=== PATIENT | female | born 1980 | race Caucasian/White ===

== ENCOUNTER 2020-05-09 12:23 | Emergency (ER) | payer OTHER, SELFPAY ==
[2020-05-09 12:57] VITALS: BP 124/89; PULSE 78; RESP 18; TEMP 37; O2SAT 98; BMI 36.3
--- NOTE | 2020-05-09 13:42 | XR_ITS ---
EXAMINATION: XR LUMBOSACRAL SPINE CLINICAL INFORMATION: Trauma, pain COMPARISON: None TECHNIQUE: Three views of the lumbosacral spine. 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 There is no vertebral compression or visible fracture, spondylolisthesis, destructive process. No focal disc narrowing. The SI joints and visualized sacrum are unremarkable. Again, there are surgical clips seen in the upper and lower abdomen. Bowel gas unremarkable. XR/XR lumbar spine 2-3V IMPRESSION: No acute bony abnormality.
[2020-05-09] MEDS: Ketorolac Tromethamine 60 MG/2 ML VIAL IM (14:05)
--- NOTE | 2020-05-09 14:13 | ED_ITS ---
HPI - Back Pain/Injury General Chief Complaint: Back Pain/Injury Stated Complaint: BACK PAIN Time Seen by Provider: 05/09/20 13:42 Source: patient Mode of arrival: ambulatory Limitations: no limitations History of Present Illness HPI Narrative: Patient was lifting her daughter about 4 days ago and pain in her low back. Continued pain since then the pain radiates to both buttocks and hips. There is no numbness or tingling. No saddle anesthesia. No bowel or bladder incontinence. No fevers or chills. The patient is ambulatory. Worsened with lying down. Improved with ambulation MD elicited complaint: back pain and back injury Onset (ago): day(s) Timing: intermittent Severity: moderate Similar Symptoms Previously: No Location: lumbar spine Radiation: buttocks Exacerbating factors: none Relieving factors: none Context: while lifting Associated symptoms: denies other symptoms Work related injury: No Related Data Previous Rx's Medication Instructions Recorded acetaminophen [Tylenol] 650 mg PO Q6H PRN #20 cap 05/09/20 cyclobenzaprine 10 mg PO TID PRN #20 tab 05/09/20 lidocaine [Lidoderm] 1 patch TOPICAL DAILY #15 ea 05/09/20 Allergies Allergy/AdvReac Type Severity Reaction Status Date / Time Sulfa (Sulfonamide Allergy Unknown hives Verified 03/15/19 00:00 Antibiotics) SEASONAL ALLERGIES Allergy Unknown RUNNY NOSE Uncoded 05/09/20 13:03 - ITCHY EYES Review of Systems Review of Systems: Yes all other systems are reviewed and are negative Constitutional: Constitutional: Reports no additional constitutional complaints, Denies body ache(s), Denies chills, Denies fever(s), Denies headache(s) and Denies weakness Eyes: Eyes: Reports no additional eye complaints and Denies change in vision ENT: Reports system reviewed and no additional complaints, except as documented, Denies dizziness, Denies headache(s), Denies nasal congestion, Denies nasal discharge and Denies neck pain Cardiovascular: Cardiovascular: Reports no additional cardiovascular complaints, Denies chest pain, Denies leg edema and Denies dyspnea Respiratory: Respiratory: Reports no additional respiratory complaints, Denies cough and Denies dyspnea Gastrointestinal: Gastrointestinal: Reports no additional gastrointestinal complaints, Denies abdominal pain, Denies diarrhea, Denies nausea and Denies vomiting Genitourinary: Genitourinary: Reports no additional female genitourinary complaints and Denies urinary incontinence Musculoskeletal: Musculoskeletal: Reports no additional musculoskeletal complaints, Reports back pain, Denies arthralgias, Denies joint swelling, Denies neck pain, Denies numbness and Denies tingling Integumentary/Breasts: Skin/Breast: Reports system reviewed and no additional complaints, except as docu and Denies rash Neurologic: Reports system reviewed and no additional complaints, except as documented, Denies Abnormal speech present, Denies dizziness, Denies headache(s), Denies numbness, Denies tingling and Denies weakness [facility] Past Medical History Attestation statement: The following information was validated with the patient. Medical History Acute eczema Anemia Asthma Surgical History Gastric bypass status for obesity H/O: hysterectomy History of abdominal surgery History of cholecystectomy S/P panniculectomy Social History Social History Alcohol intake: never Smoked in Last 30 Days: No Use of substances other than those prescribed or required for medical reasons: No Advance Directives: No Advance Directives Information Provided: No Physical Exam Vital Signs: Vital Signs: Vital Signs Temp Pulse Resp BP Pulse Ox 05/09/20 12:57 98.6 F 78 18 124/89 98 Body Mass Index 36.3 Const: General: cooperative, healthy appearing, comfortable and no acute distress Orientation/consciousness: patient oriented x3 Limitations: no limitations HENMT: Head: Yes normal to inspection Ears: hearing grossly normal bilaterally General nose exam: Normal external nose present Face and sinus: Yes normal facial exam Mouth: Normal oral and palatal mucosa present Throat: Yes posterior oropharynx normal Eyes: General: appearance normal, both eyes and all related structures Pupils: Equal, round and reactive pupils present Neck: Neck: Yes normal visual inspection Chest: Chest palpation & inspection: normal inspection of the chest Resp: Effort & Inspection: normal respiratory effort Auscultation: clear to auscultation bilaterally Cardio: Rate: regular rate Rhythm: regular rhythm Peripheral pulses: Peripheral pulses 2+ throughout GI: Inspection: Yes normal to inspection Palpation (GI): Soft to palpation and nontender Auscultation: normal bowel sounds : General: Yes no CVA tenderness Back/Spine/Pelvis: Back: no CVA tenderness Cervical Spine: normal cervical lordosis and cervical ROM normal Thoracic/Lumbar Spine: thoracic and lumbar spine normal to inspection, paraspinal muscle tenderness (over lumbar spine ) on the left and on the right, lumbar spinal tenderness at L1, at L2 and at L3 and straight leg raise positive (bilateral ) Pelvis: no pain with anterior- posterior compression and no pain with lateral compression Skin: General skin exam: no rashes or lesions noted Neuro: General: patient oriented x3, no focal motor deficits and normal sensat ion to monofilament Cranial nerves: Yes Equal, round and reactive pupils present Cognition (Neuro): normal cognition Speech: No Abnormal speech present Gait exam (Neuro): Normal gait present Motor exam (neuro): 5/5 mo tor strength present throughout Extrem: General: Yes normal to inspection Course Course Course Narrative: midline tenderness. will check imaging 1500- x-ray unremarkable. Likely lumbar strain. May be herniated disc. No neuro deficits. No red flag symptoms. Will send patient home with supportive care and have her follow-up with her primary care doctor in several days if no improvement in pain. Reviewed worrisome signs and symptoms when to return to the emergency department. Comfortable discharge home. MDM - Back Pain/Injury Medical Records Attestation: I reviewed the patient's medical records. Lab Data Attestation: I reviewed the patient's lab results. Imaging Data lumbar spine: Attestation: I personally reviewed and interpreted this imaging study as follows: Radiologist's impression: EXAMINATION: XR LUMBOSACRAL SPINE CLINICAL INFORMATION: Trauma, pain COMPARISON: None TECHNIQUE: Three views of the lumbosacral spine. 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 There is no vertebral compression or visible fracture, spondylolisthesis, destructive process. No focal disc narrowing. The SI joints and visualized sacrum are unremarkable. Again, there are surgical clips seen in the upper and lower abdomen. Bowel gas unremarkable. XR/XR lumbar spine 2-3V IMPRESSION: No acute bony abnormality. Discharge Plan Discharge Clinical Impression: Strain of lumbar region Patient Disposition: Home, Self-Care Instructions: Low Back Strain (ED) Additional Instructions: Ice or heat gentle stretching no heavy lifting or bending if no improvement in several days please follow-up with your pcp for a MRI Prescriptions: New lidocaine [Lidoderm] 5 % adhesive patch,medicated 1 patch topical DAILY Qty: 15 RF: 0 acetaminophen [Tylenol] 325 mg capsule 650 mg PO Q6H PRN (Reason: fever or pain) Qty: 20 RF: 0 cyclobenzaprine 10 mg tablet 10 mg PO TID PRN (Reason: muscle spasm) Qty: 20 RF: 0 Referrals: Lucas Washington MD [Primary Care Provider] - 2 days Stand Alone Forms: Work/School Release Interventions: ED Discharge Assessment Last Done: 05/09/20 15:16 Discharge Date/Time: 05/09/20 15:18
== END 2020-05-09 15:18 | disposition home or self-care (01) ==
PROVIDERS: Emergency Provider Emergency Medicine; PCP Internal Medicine
DX: S39.012A Strain of muscle, fascia and tendon of lower back, initial encounter (principal); M54.6 Pain in thoracic spine; M25.552 Pain in left hip; M25.551 Pain in right hip; X50.0XXA Overexertion from strenuous movement or load, initial encounter; Y92.009 Unspecified place in unspecified non-institutional (private) residence as the place of occurrence of the external cause; Z79.899 Other long term (current) drug therapy
CPT/HCPCS: 72100; 96372; 99284; J1885

== ENCOUNTER 2020-05-22 18:43 | Outpatient (REF) | payer OTHER, SELFPAY ==
--- NOTE | 2020-05-22 18:44 | MR_ITS ---
EXAMINATION: MR LUMBAR SPINE WITHOUT CONTRAST CLINICAL INFORMATION: Lower back pain into left hip. COMPARISON: Lumbar spine radiographs dated 05/09/2020. TECHNIQUE: MRI of the lumbar spine was obtained using routine sequences without contrast. FINDINGS: VERTEBRAL BODIES AND PARASPINAL STRUCTURES: There are 4 nonrib-bearing lumbar-type vertebra with sacralization of the L5 vertebral body. The examination is numbered as such with a saved image. Normal vertebral body alignment. The lumbar lordosis is maintained. No acute fracture or subluxation. No loss of vertebral body height. Loss of intervertebral disc height with disc desiccation at L3-L4 and L4-L5. No abnormal marrow signal. The visualized paraspinal soft tissues are unremarkable. CONUS MEDULLARIS AND CAUDA EQUINA: Normal, terminating at the level of L1. SPINAL LEVELS: T12-L1: No significant disc bulge. No central canal or neural foraminal stenosis. L1-L2: No significant disc bulge. No central canal or neural foraminal stenosis. L2-L3: No significant disc bulge. No central canal or neural foraminal stenosis. L3-L4: Mild broad-based disc bulge with a superimposed shallow right extraforaminal disc protrusion which contacts the exiting right L3 nerve root. Bilateral facet arthropathy and thickening of the ligamentum flavum with minimal central canal as well as [id number] right and mild left neural foraminal stenosis. L4-L5: Broad-based disc bulge, slightly asymmetric to the right with a posterior annular fissure. This abuts the traversing right L5 nerve root within the lateral recess. Bilateral facet arthropathy with mild bilateral neural foraminal stenosis. L5-S1: Rudimentary disc without significant disc bulge, central canal, or neural foraminal stenosis. MR/MR lumbar spine wo con IMPRESSION: 1. There are 4 nonrib-bearing lumbar-type vertebral bodies with sacralization of L5. The examination is labeled as such on a saved image. 2. L3-L4 mild broad-based disc bulge with a superimposed shallow right extraforaminal disc protrusion which contacts the exiting right L3 nerve root. Bilateral facet arthropathy and thickening of the ligamentum flavum causing minimal central canal as well as [id number] right and mild left neural foraminal stenosis. 3. L4-L5 broad-based disc bulge, slightly asymmetric to the right with posterior annular fissuring. This abuts the traversing right L5 nerve root within the lateral recess. Bilateral facet arthropathy with mild bilateral neural foraminal stenosis.
== END 2020-05-22 18:44 | disposition home or self-care (01) ==
LOC: HO.MRI 18:43
PROVIDERS: Visit Provider Internal Medicine
DX: M54.5 Low back pain (principal)
CPT/HCPCS: 72148

== ENCOUNTER 2020-07-01 13:58 | Outpatient (REF) | payer OTHER, SELFPAY | END 2020-07-01 13:59 | disposition home or self-care (01) | LOC: HO.LAB 13:58 | PROVIDERS: Visit Provider Internal Medicine | DX: Z20.828 Contact with and (suspected) exposure to other viral communicable diseases (principal) | CPT/HCPCS: C9803; U0003 ==

== ENCOUNTER 2020-07-15 13:36 | Outpatient (REF) | payer OTHER, SELFPAY | END 2020-07-15 13:37 | disposition home or self-care (01) | LOC: HO.LAB 13:36 | PROVIDERS: Visit Provider Internal Medicine | DX: Z20.828 Contact with and (suspected) exposure to other viral communicable diseases (principal) | CPT/HCPCS: 36415; C9803; U0003 ==

== ENCOUNTER 2020-07-25 09:13 | Outpatient (REF) | payer OTHER, SELFPAY | END 2020-07-25 09:14 | disposition home or self-care (01) | LOC: HO.LAB 09:13 | PROVIDERS: Visit Provider Internal Medicine | DX: Z20.822 Contact with and (suspected) exposure to COVID-19 (principal) | CPT/HCPCS: 36415; C9803; U0003 ==

== ENCOUNTER 2020-08-19 08:57 | Outpatient (REF) | payer OTHER, SELFPAY ==
[2020-08-19 09:37] LABS: MANUAL DIFF FLAG NO
[2020-08-19 09:44] LABS: Basophils Absolute Auto 0.1 X10*3/uL (0.0-0.2); Basophils Percent Auto 0.9 % (0-2); Eosinophils Absolute Auto 0.3 X10*3/uL (0.0-0.4); Eosinophils Percent Auto 4.3 % (0-4); Hematocrit 35.9 % (37-47); Hemoglobin 11.7 g/dl (12.0-16.0); Imm Gran Abs Auto 0.01 X10*3/uL (0.00-0.03); Imm Gran Pct Auto 0.2 % (0.0-0.4); Lymphocytes Percent Auto 34.8 % (20-40); Mean Corpuscular HGB Conc 32.6 g/dl (31.0-35.0); Mean Corpuscular Hemoglobin 28.4 pg (27.0-33.0); Mean Corpuscular Volume 87.1 fL (80-98); Mean Platelet Volume 10.4 fL (9.4-12.3); Monocytes Absolute Auto 0.9 X10*3/uL (0.1-1.2); Monocytes Percent Auto 15.4 % (2-11); Neutrophils Absolute Auto 2.6 X10*3/uL (2.0-8.3); Neutrophils Percent Auto 44.4 % (45-73); Platelet Count 393 X10*3/uL (160-400); Red Blood Count 4.12 X10*6/uL (4.20-5.50); Red Cell Distribution Width 14.5 % (11.0-16.0); White Blood Count 5.8 X10*3/uL (4.8-10.8)
[2020-08-19 10:13] LABS: Alanine Aminotransferase 20 U/L (0-31); Albumin Level 3.4 g/dL (3.5-5.0); Alkaline Phosphatase 65 U/L (39-117); Anion Gap 10 (12-20); Aspartate Amino Transferase 16 U/L (5-31); Bilirubin Total 0.3 mg/dL (0.0-1.0); Blood Urea Nitrogen 13 mg/dL (9-16); Calcium 8.7 mg/dL (8.4-10.2); Carbon Dioxide 28 mmol/L (22-29); Chloride 106 mmol/L (96-108); Estimated Glomerular Filt Rate > 60; Glucose Random 76 mg/dL (60-115); Potassium 3.9 mmol/L (3.3-5.1); Sodium 140 mmol/L (135-145); Total Protein 6.4 g/dL (6.5-8.0)
[2020-08-19 11:03] LABS: Erythrocyte Sedimentation Rate 12 MM/HR (0-20)
== END 2020-08-19 08:58 | disposition home or self-care (01) ==
LOC: HO.LAB 08:57
PROVIDERS: PCP Internal Medicine; Visit Provider Internal Medicine
DX: L23.9 Allergic contact dermatitis, unspecified cause (principal)
CPT/HCPCS: 36415; 80053; 85025; 85652

== ENCOUNTER 2020-09-09 08:52 | Outpatient (REF) | payer OTHER, SELFPAY | END 2020-09-09 08:53 | disposition home or self-care (01) | LOC: HO.LAB 08:52 | PROVIDERS: Visit Provider Internal Medicine | DX: Z20.822 Contact with and (suspected) exposure to COVID-19 (principal) | CPT/HCPCS: 36415; C9803; U0003; U0005 ==

== ENCOUNTER 2021-04-25 13:00 | Outpatient (REF) | payer OTHER, SELFPAY ==
--- NOTE | ~2021-04-25 | US_ITS ---
Targeted left breast ultrasound is described in s single combined report along with the diagnostic bilateral mammography same date under accession number [id number].
--- NOTE | ~2021-04-25 | MM_ITS ---
EXAMINATION: MM DIAGNOSTIC DIGITAL BREAST TOMOSYNTHESIS, BILATERAL US DIAGNOSTIC ULTRASOUND BREAST, LEFT CLINICAL INFORMATION: Pain with palpable fullness lower left breast. Patient provides history benign excisional biopsy for large lesion upper left breast over 15 years ago. Patient age 40. Family history premenopausal breast cancer in mother. The lifetime risk of breast cancer based on the Tyrer-Cuzick Model is 22.4%. COMPARISON: None. TECHNIQUE: Digital breast tomosynthesis is performed in both the craniocaudal and mediolateral oblique views along with computer-aided detection (CAD). Synthesized 2D images are generated from the tomosynthesis. Additional views are obtained: Right CC, left CC x3, spot left CC, rolled left CC x2. Ultrasound left breast is targeted to the area of clinical concern 5:00 through 7:00 position as well as upper quadrant 11:00 through 2:00 position. Grayscale imaging and color are obtained without and with harmonics. FINDINGS: There are scattered areas of fibroglandular density (ACR BI-RADS breast composition Category b). The right breast is unremarkable. There is no mass or architectural abnormality. Neither breast shows abnormal calcifications. There is no skin thickening or coarsening of the Mando's ligaments. The axilla are unremarkable. There is focal architectural changes central upper left breast on CC views without MLO correlate. This the architectural changes reside near medial aspect left breast scar marker and are likely related to the prior surgery. Ultrasound left breast demonstrates no cystic or solid mass or architectural abnormality in the area of palpable concern inferior breasts. There is no duct ectasia or skin thickening or edema tracking in the soft tissue planes. There is likely old scarring in the superior left breast corresponding to the finding on mammography. Results are discussed with the patient at time of visit. There is no mammographic or ultrasound correlate for palpable concern or pain lower left breast. The architectural changes CC views upper left breast are likely related to the prior surgery and will be reassessed again in 6 months with diagnostic left mammography to confirm stability. MM/MM tomosynthesis diagnostic BI IMPRESSION: 1. No mammographic or ultrasound finding to correspond to patient's pain or palpable concern lower left breast. 2. Probable old postsurgical scarring upper left breast on CC view. ASSESSMENT: BI-RADS 3: Probably Benign RECOMMENDATION: 1. Patient's left breast pain should be managed based on the clinical impression. If there is a clinically palpable concern, further evaluation may be considered with surgical consult. Decision to proceed with biopsy should be based on clinical grounds and degree of clinical concern. 2. Diagnostic left mammography in 6 months for probable postsurgical changes. This patient's information was entered into a reminder system with a target due date for their next mammogram.
== END 2021-04-25 13:01 | disposition home or self-care (01) ==
LOC: HO.MAMMO 13:00
PROVIDERS: Visit Provider Internal Medicine
DX: N63.25 Unspecified lump in the left breast, overlapping quadrants (principal); Z80.3 Family history of malignant neoplasm of breast
CPT/HCPCS: 76642; 77062; 77066

== ENCOUNTER → 2021-05-15 15:13 | Outpatient (BNVA) | payer OTHER, SELFPAY | PROVIDERS: PCP Internal Medicine; Referring Provider Internal Medicine; Visit Provider Surgery | DX: D17.1 Benign lipomatous neoplasm of skin and subcutaneous tissue of trunk (principal) | CPT/HCPCS: 99202 ==

== ENCOUNTER → 2021-05-28 16:19 | Outpatient (REF) | payer OTHER, SELFPAY | LOC: HO.SL 16:19 | PROVIDERS: PCP Internal Medicine; Visit Provider Internal Medicine | DX: R40.0 Somnolence (principal); R53.83 Other fatigue | CPT/HCPCS: 95806 ==

== ENCOUNTER 2021-06-04 06:08 | Day surgery (SDC) | payer OTHER, SELFPAY ==
[2021-05-29 11:01] VITALS: BMI 41.6
--- NOTE | 2021-06-03 08:58 | P.CONAN_ITS ---
Documented by User: Kerri Cervantes NP 06/03/21 08:58 HPI - Anesthesia Eval Consult details Narrative: 40yo F for Excision of Posterior Neck Cyst PMFSH Active Problems Active Problems: All Active Problems (Updated 04/15/21 @ 12:43 by Lucas Washington MD) Lipoma of back (Acute) Fatigue (Acute) Daytime somnolence (Acute) Breast lump on left side at 6 o'clock position (Acute) Morbid obesity with BMI of 40.0-44.9, adult (Acute) Panniculitis (Acute) Obesity, morbid, BMI 40.0-49.9 (Acute) Eczema (Acute) Asthma (Acute) Lumbar degenerative disc disease (Acute) Allergic dermatitis (Acute) COVID-19 (Acute) Past Medical History Medical History Acute eczema Allergic dermatitis Anemia Asthma COVID-19 Eczema Lumbar degenerative disc disease Morbid obesity with BMI of 40.0-44.9, adult Obesity, morbid, BMI 40.0-49.9 Panniculitis Family History Family History Family/Other Back problem Mother Diabetes Hypertension Hypercholesteremia Depression Brother Gallstones Daughter Asthma Maternal Uncle Cancer Maternal Uncle Throat cancer Maternal Grandmother Diabetes Maternal Grandfather Diabetes Paternal Grandmother Myocardial infarction Surgical History Surgical History Gastric bypass status for obesity H/O: hysterectomy (~11/20/14) History of abdominal surgery History of cholecystectomy S/P panniculectomy Social History Social History Housing: Apartment Are you a primary spiritual care coordinator to a significant other at home: No Do you presently have visiting nurse or other home services: No Alcohol intake: current Alcohol intake frequency: holidays/special occasions only Patient Tobacco Use Status: Never used Tobacco Second Hand Smoke Exposure: Yes Have you been hit, kicked, punched, or otherwise hurt by someone within the past year? If so, by whom?: No Are you DNR?: No Advance Directives: No Advance Directives Information Provided: No Advance Directives on File: No Recently lost weight without trying: No Eating poorly because of decreased appetite: No Nutrition Risks: No Nutritional Risk service: No Current occupational status: employed Meds Allergies Allergy/AdvReac Type Severity Reaction Status Date / Time Sulfa (Sulfonamide Allergy Unknown hives Verified 06/04/21 06:17 Antibiotics) SEASONAL ALLERGIES Allergy Unknown RUNNY NOSE Uncoded 05/28/21 16:09 - ITCHY EYES Home Medications Medication Instructions Recorded Confirmed Last Taken Type dupilumab 300 mg/2 mL subcutaneous mg SUBCUT 05/15/21 05/15/21 Unknown History pen injector (Dupixent) Exam Exam Date and Time: June 03, 2021 0858 Height,Weight and Vital Signs: Height 5 ft 3 in Weight 106.594 kg Assessment and Plan Assessment Anesthesia Assessment: Chart Reviewed Documented by User: Elle Mckeon MD 06/04/21 07:05 [facility] Past Medical History Medical History Acute eczema Allergic dermatitis Anemia Asthma COVID-19 Eczema Lumbar degenerative disc disease Morbid obesity with BMI of 40.0-44.9, adult Obesity, morbid, BMI 40.0-49.9 Panniculitis Family History Family History Family/Other Back problem Mother Diabetes Hypertension Hypercholesteremia Depression Brother Gallstones Daughter Asthma Maternal Uncle Cancer Maternal Uncle Throat cancer Maternal Grandmother Diabetes Maternal Grandfather Diabetes Paternal Grandmother Myocardial infarction Family history of problems with anesthesia: No Surgical History Surgical History Gastric bypass status for obesity H/O: hysterectomy (~11/20/14) History of abdominal surgery History of cholecystectomy S/P panniculectomy History of Problems with Anesthesia: No Social History Social History Housing: Apartment Are you a primary spiritual care coordinator to a significant other at home: No Do you presently have visiting nurse or other home services: No Alcohol intake: current Alcohol intake frequency: holidays/special occasions only Patient Tobacco Use Status: Never used Tobacco Second Hand Smoke Exposure: Yes Have you been hit, kicked, punched, or otherwise hurt by someone within the past year? If so, by whom?: No Are you DNR?: No Advance Directives: No Advance Directives Information Provided: No Advance Directives on File: No Recently lost weight without trying: No Eating poorly because of decreased appetite: No Nutrition Risks: No Nutritional Risk service: No Current occupational status: employed Meds Allergies Allergy/AdvReac Type Severity Reaction Status Date / Time Sulfa (Sulfonamide Allergy Unknown hives Verified 06/04/21 06:17 Antibiotics) SEASONAL ALLERGIES Allergy Unknown RUNNY NOSE Uncoded 05/28/21 16:09 - ITCHY EYES Home Medications Medication Instructions Recorded Confirmed Last Taken Type dupilumab 300 mg/2 mL subcutaneous mg SUBCUT 05/15/21 05/15/21 Unknown History pen injector (Dupixent) Exam Airway Mallampati Class: II (Missing a couple teeth, nothing loose) TM Dist: >3cm Neck ROM: Full Heart: rrr Lungs: cta Assessment and Plan Assessment Anesthesia Assessment: Anesthesia Plan Discussed and Chart Reviewed Final Anesthetic Review Family History of Problems with Anesthesia: No History of Problems with Anesthesia: No NPO: Yes ASA Class: III Final Preanesthetic Review: No Changes in Pt Med Stat, Meds/Allgs Chart Reviewed and Consent Obtained/Reviewed Patient Risk: Intermediate Procedure Risk: Intermediate Anesthetic Plan Anesthetic Plan: GA Disposition: Standard PACU
[2021-06-04] VITALS (11 sets, daily range): BP systolic 113–145; BP diastolic 67–93; PULSE 82–105; RESP 16–28; TEMP 36.1–36.4; O2SAT 93–99
[2021-06-04] MEDS: Lactated Ringers 1,000 ML 100 ML IVCONT (06:41)
--- NOTE | 2021-06-04 08:42 | W.PM.OPN ---
Operative Note Operative Note Date of Service: 06/04/21 Narrative: Preoperative diagnosis: lipoma posterior neck Postoperative diagnosis: same Procedure: excision of lipoma posterior neck Surgeon: Parish Wilson MD Waiter/Waitress Dining Car: no surgeon Anesthesia: general ET Indications for procedure: 40-year-old female presenting with a soft palpable mass in the posterior neck cyst or lipoma Operative findings: soft mass measured approximately a 10 cm in diameter the posterior neck, lipomatous Specimen: lipoma posterior neck Estimated blood loss: 5 mL Complications: none Procedure details: patient was brought to the OR placed in a supine position. After administering general anesthesia she was placed in a prone position. The skin of the posterior neck was prepped with Betadine and draped in a sterile fashion. A preoperative diagnosis was called and consent confirmed. Patient received preoperative antibiotics and Venodyne boots were placed. Local anesthesia consisting of 0.5% Sensorcaine was infiltrated in a transverse fashion over the lipoma. Incision was then made with a scalpel carried out through subcutaneous tissue up to the lipoma. Electrocautery was then used to dissect the lipoma from the surrounding deep subcutaneous tissue down to muscle fascia. This was sent to pathology for further examination. A 2nd piece more to the right was also excised and sent to pathology combined with the 1st piece. The wounds were irrigated with saline solution and suctioned dry. Wounds were checked for hemostasis which was assured using electrocautery. Deep subcutaneous tissue was then reapproximated using interrupted 3-0 Polysorb sutures. Dermis was reapproximated using interrupted 3-0 Polysorb sutures. Skin was then closed using a running subcuticular 4-0 Polysorb suture. Steri-Strips 2 x 2 gauze and Tegaderm were then applied. The patient tolerated the procedure well. Sponge, instrument, and needle counts reported as correct. The patient was transferred to PACU in stable condition.
--- NOTE | 2021-06-04 08:51 | MHC.SHP ---
Pre-Procedural Eval Section A Date of Service: 06/04/21 The patient is an INPATIENT: No Changes since office visit: Yes Patient answered all questions; No Cold of Flu in the past 2 weeks, No New Medical Problems and No Changes in Medication The History & Physical has been completed within 30 days and I have reviewed it.: Yes Section B Chief Complaint: Lipoma of back Allergies: Allergies Allergy/AdvReac Type Severity Reaction Status Date / Time Sulfa (Sulfonamide Allergy Unknown hives Verified 06/04/21 06:17 Antibiotics) SEASONAL ALLERGIES Allergy Unknown RUNNY NOSE Uncoded 05/28/21 16:09 - ITCHY EYES Plan Diagnosis/Plan: Unchanged I have reviewed the history and physical and performed a pertinent physical examination on my patient. No changes have occurred unless specified.
[2021-06-04] MEDS: oxyCODONE HCl Immed Release 5 MG TABLET PO (09:16)
== END 2021-06-04 11:46 | disposition home or self-care (01) ==
PROVIDERS: PCP Internal Medicine; Visit Provider Surgery
PROC: (CPT 21552; principal; 2021-06-04 07:30)
DX: D17.0 Benign lipomatous neoplasm of skin and subcutaneous tissue of head, face and neck (principal); M54.2 Cervicalgia; J45.909 Unspecified asthma, uncomplicated; D64.9 Anemia, unspecified; E66.01 Morbid (severe) obesity due to excess calories; Z68.41 Body mass index [BMI] 40.0-44.9, adult; L23.9 Allergic contact dermatitis, unspecified cause; Z79.899 Other long term (current) drug therapy; Z88.2 Allergy status to sulfonamides; Z98.84 Bariatric surgery status; Z86.16 Personal history of COVID-19
CPT/HCPCS: 21552; 88304; J0690; J1100; J2250; J2405; J2550; J3010

== ENCOUNTER → 2021-06-12 13:50 | Outpatient (BNVA) | payer OTHER, SELFPAY | PROVIDERS: PCP Internal Medicine; Referring Provider Internal Medicine; Visit Provider Surgery | DX: Z48.817 Encounter for surgical aftercare following surgery on the skin and subcutaneous tissue (principal); D17.1 Benign lipomatous neoplasm of skin and subcutaneous tissue of trunk | CPT/HCPCS: 99212 ==

== ENCOUNTER → 2021-07-15 15:33 | Outpatient (BNVA) | payer OTHER, SELFPAY | PROVIDERS: PCP Internal Medicine; Referring Provider Internal Medicine; Visit Provider Surgery | DX: Z48.3 Aftercare following surgery for neoplasm (principal); Z86.018 Personal history of other benign neoplasm | CPT/HCPCS: 99212 ==

== ENCOUNTER 2021-08-15 12:55 | Outpatient (REF) | payer OTHER, SELFPAY ==
--- NOTE | ~2021-08-15 | XR_ITS ---
EXAMINATION: XR CHEST CLINICAL INFORMATION: Chest pain COMPARISON: None TECHNIQUE: 2 views of the chest were obtained. FINDINGS: No significant abnormality is noted involving the heart, lungs, mediastinum, bony thorax or soft tissues. XR/XR chest 2V IMPRESSION: Unremarkable chest examination.
== END 2021-08-15 12:56 | disposition home or self-care (01) ==
LOC: HO.XRAY 12:55
PROVIDERS: PCP Internal Medicine; Visit Provider Hospitalist
DX: R07.9 Chest pain, unspecified (principal); J45.20 Mild intermittent asthma, uncomplicated; G47.33 Obstructive sleep apnea (adult) (pediatric)
CPT/HCPCS: 71046; 99202

== ENCOUNTER 2021-12-26 15:44 | Emergency (ER) | payer OTHER, SELFPAY ==
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
[2021-12-26 15:45] VITALS: BP 153/86; PULSE 98; RESP 16; TEMP 37.1; O2SAT 103; BMI 36.3
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
[2021-12-26] MEDS: Ketorolac Tromethamine 30 MG/ML VIAL IM (16:46)
[2021-12-26] MEDS: HYDROcodone Bit/Acetam 5/325 TABLET 1 TAB PO (16:46)
== END 2021-12-26 18:12 | disposition home or self-care (01) ==
PROVIDERS: Emergency Provider Emergency Medicine; PCP Internal Medicine
DX: S16.1XXA Strain of muscle, fascia and tendon at neck level, initial encounter (principal); S39.012A Strain of muscle, fascia and tendon of lower back, initial encounter; M25.511 Pain in right shoulder; V53.5XXA Driver of pick-up truck or van injured in collision with car, pick-up truck or van in traffic accident, initial encounter; Y93.9 Activity, unspecified; Y92.410 Unspecified street and highway as the place of occurrence of the external cause; Y99.9 Unspecified external cause status
CPT/HCPCS: 73030; 96372; 99283; 99284; J1885

== ENCOUNTER 2022-01-02 11:07 | Outpatient (REF) | payer OTHER, SELFPAY ==
--- NOTE | ~2022-01-02 | XR_ITS ---
EXAMINATION: XR THORACIC SPINE CLINICAL INFORMATION: M54.9 - Dorsalgia, unspecified COMPARISON: Chest radiographs 08/15/2021, lumbar radiographs 05/09/2020. TECHNIQUE: AP and lateral views of the thoracic spine are obtained. FINDINGS: Normal thoracic segmentation with 12 rib-bearing thoracic vertebrae of normal height and normal thoracic kyphosis. There is gentle dextrocurvature midthoracic spine and gentle levocurvature lower thoracic spine. No thoracic vertebral compression, spondylolisthesis, destructive process, or paraspinal soft tissue swelling. There are borderline degenerative disc changes mid thoracic spine with borderline disc narrowing and mild anterior vertebral spurring. XR/XR thoracic spine 3V IMPRESSION: -No thoracic vertebral compression, spondylolisthesis, destructive process. -Gentle dextrocurvature midthoracic spine and gentle levocurvature lower thoracic spine. -Borderline degenerative disc changes.
--- NOTE | ~2022-01-02 | XR_ITS ---
EXAMINATION: XR SHOULDER, LEFT CLINICAL INFORMATION: Left shoulder pain COMPARISON: None TECHNIQUE: Left shoulder is imaged in 4 views. FINDINGS: No fracture, dislocation, destructive process. The glenohumeral joint appears normal. The acromioclavicular alignment is normal. There are no visible rotator cuff calcifications. XR/XR shoulder LT min 2V IMPRESSION: Normal left shoulder.
--- NOTE | ~2022-01-02 | XR_ITS ---
EXAMINATION: XR CERVICAL SPINE CLINICAL INFORMATION: M54.2 - Cervicalgia COMPARISON: None TECHNIQUE: Cervical spine is imaged in 5 views: AP, lateral, swimmer's, odontoid, and Fuchs. FINDINGS: There is mild reversal cervical lordosis. The vertebral bodies are normal in height and there is no cervical vertebral compression, spondylolisthesis, disc narrowing, or prevertebral soft tissue swelling. The odontoid appears intact. No disc narrowing or erosive change. No fanning posterior elements. No cervical rib. XR/XR cervical spine 3V IMPRESSION: -Mild reversal cervical lordosis which may be related to muscle spasm. -No vertebral compression, spondylolisthesis, disc narrowing, or prevertebral soft tissue swelling.
--- NOTE | ~2022-01-02 | XR_ITS ---
EXAMINATION: XR LUMBAR SPINE XR SACROILIAC JOINTS CLINICAL INFORMATION: M54.50 - Low back pain, unspecified. M53.3 - Sacrococcygeal disorders, not elsewhere classified. COMPARISON: Radiographs thoracic spine 01/02/2022, MR lumbar spine 05/22/2020, radiographs lumbar spine 05/09/2020, CT abdomen and pelvis 10/13/2016. TECHNIQUE: Lumbar spine is imaged in 3 views. The sacroiliac joints are imaged in 3 views. There are total of 6 views. FINDINGS: Lumbar spine: Congenital lumbar segmentation anomaly again seen with 4 nonrib-bearing lumbar vertebrae of normal height. There is mild accentuation lumbar lordosis. Gentle levocurvature is present thoracolumbar spine with borderline dextrocurvature lower lumbar spine. No lumbar vertebral compression, spondylolisthesis, or destructive process. There is no interval focal disc narrowing or endplate sclerosis or erosive change. Sacroiliac joints: The sacroiliac joints appear normal with no diastases, erosive change, subchondral sclerosis, or ankylosis. There are surgical clips right upper quadrant and left lower quadrant. Numerous metallic spring tacks are seen overlying the lower quadrant likely from prior abdominal wall mesh. 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 -Mild curvature thoracolumbar spine. Mild accentuation lumbar lordosis. -No vertebral compression, spondylolisthesis, disc narrowing, or destructive process. -Normal SI joints.
--- NOTE | ~2022-01-02 | XR_ITS ---
EXAMINATION: XR LUMBAR SPINE XR SACROILIAC JOINTS CLINICAL INFORMATION: M54.50 - Low back pain, unspecified. M53.3 - Sacrococcygeal disorders, not elsewhere classified. COMPARISON: Radiographs thoracic spine 01/02/2022, MR lumbar spine 05/22/2020, radiographs lumbar spine 05/09/2020, CT abdomen and pelvis 10/13/2016. TECHNIQUE: Lumbar spine is imaged in 3 views. The sacroiliac joints are imaged in 3 views. There are total of 6 views. FINDINGS: Lumbar spine: Congenital lumbar segmentation anomaly again seen with 4 nonrib-bearing lumbar vertebrae of normal height. There is mild accentuation lumbar lordosis. Gentle levocurvature is present thoracolumbar spine with borderline dextrocurvature lower lumbar spine. No lumbar vertebral compression, spondylolisthesis, or destructive process. There is no interval focal disc narrowing or endplate sclerosis or erosive change. Sacroiliac joints: The sacroiliac joints appear normal with no diastases, erosive change, subchondral sclerosis, or ankylosis. There are surgical clips right upper quadrant and left lower quadrant. Numerous metallic spring tacks are seen overlying the lower quadrant likely from prior abdominal wall mesh. 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 -Mild curvature thoracolumbar spine. Mild accentuation lumbar lordosis. -No vertebral compression, spondylolisthesis, disc narrowing, or destructive process. -Normal SI joints.
== END 2022-01-02 11:08 | disposition home or self-care (01) ==
LOC: HO.XRAY 11:07
PROVIDERS: Absent Provider Internal Medicine; PCP Internal Medicine; Visit Provider Nurse Practitioner Family
DX: M53.3 Sacrococcygeal disorders, not elsewhere classified (principal); M25.512 Pain in left shoulder; M54.50 Low back pain, unspecified; M54.9 Dorsalgia, unspecified; M25.511 Pain in right shoulder; G89.29 Other chronic pain; M62.838 Other muscle spasm; M54.2 Cervicalgia; N62 Hypertrophy of breast; V89.2XXA Person injured in unspecified motor-vehicle accident, traffic, initial encounter
CPT/HCPCS: 72040; 72072; 72100; 72202; 73030; 99202

== ENCOUNTER 2022-02-17 06:17 | Outpatient (REF) | payer OTHER, SELFPAY ==
--- NOTE | ~2022-02-17 | FL_ITS ---
EXAMINATION: XR FLUOROSCOPY WITH IMAGES CLINICAL INFORMATION: Sacrococcygeal disorder. COMPARISON: None. TECHNIQUE: Fluoroscopy performed by Sallie Sol. Fluoroscopy time: 0.1 Cumulative Dose: 3.54 mGy DAP: 0.966 Gy-cm2 Images: 1 FINDINGS: There is a needle positioned overlying the SI joint with no contrast visualized. There is abdominal hernia repair with mesh in place in the mid to lower abdomen. No gross bony abnormality seen. FL/FL guidance in treatment room IMPRESSION: Needle positioned overlying the SI joint with no contrast seen. SI joints space is maintained normal.
== END 2022-02-17 06:18 | disposition home or self-care (01) ==
LOC: HO.RADIR 06:17
PROVIDERS: Visit Provider Anesthesiology
DX: M53.3 Sacrococcygeal disorders, not elsewhere classified (principal); M25.511 Pain in right shoulder; M25.512 Pain in left shoulder; M54.50 Low back pain, unspecified; G89.29 Other chronic pain; M62.838 Other muscle spasm; M54.2 Cervicalgia; N62 Hypertrophy of breast
CPT/HCPCS: 27096; J3300

== ENCOUNTER 2022-12-06 23:31 | Emergency (ER) | payer OTHER, SELFPAY ==
[2022-12-06 23:51] VITALS: BP 117/66; PULSE 83; RESP 16; TEMP 36.8; O2SAT 96
[2022-12-06 23:52] VITALS: BMI 46.1
[2022-12-07] MEDS: Famotidine/PF 20 MG/2 ML VIAL IVPUSH (00:35)
[2022-12-07] MEDS: 0.9 % Sodium Chloride 1,000 ML 999 ML IV (00:35)
[2022-12-07] MEDS: diphenhydrAMINE HCL 50 MG/ML VIAL IVPUSH (00:35)
[2022-12-07] MEDS: methylPREDNISolone Sod Succ 125 MG/2 ML VIAL IVPUSH (00:35)
--- NOTE | 2022-12-07 00:35 | ED_ITS ---
HPI - Allergic Reaction General Chief complaint: Allergic Reaction Stated complaint: Allergic Reaction, trouble breathing Time Seen by Provider: 12/07/22 00:05 Source: patient Mode of arrival: ambulatory Limitations: no limitations History of Present Illness HPI narrative: 42-year-old female known to have seasonal allergies patient drink a shot of liquor and beer with her friend who offered her a piece of corn bread that was made in [place] and shortly after patient started to have diffuse rash and itching, patient also felt short of breath and change of voice, patient drove herself to the emergency department patient is starting to feel better except for the itching and rash. Related Data Home Medications Medication Instructions Recorded Confirmed dupilumab 300 mg/2 mL subcutaneous 300 mg subcut Q4W 11/15/21 06/08/22 pen injector (Dupixent) alclometasone 0.05 % topical topical PRN 02/17/22 06/08/22 ointment Previous Rx's Medication Instructions Recorded ketoconazole 2 % shampoo 1 appl topical 2XW 14 days #120 mL 08/14/20 acetaminophen 325 mg capsule 650 mg PO Q6H PRN fever or pain 11/15/21 (Tylenol) #90 caps albuterol sulfate 90 mcg/actuation 2 puff inhalation Q6-8H PRN 11/15/21 aerosol inhaler shortness of breath or wheezing 30 days #8.5 grams desonide 0.05 % topical cream 1 appl topical BID 30 days #120 11/15/21 grams loratadine 10 mg tablet 10 mg PO DAILY PRN for itch #30 11/15/21 tabs ibuprofen 600 mg tablet 600 mg PO Q8H PRN pain #10 tabs 12/26/21 lidocaine 5 % topical patch 1 patch topical DAILY #15 ea 12/26/21 hydroxyzine HCl 25 mg tablet 25 mg PO QID PRN for itch #120 tabs 02/12/22 tizanidine 4 mg tablet 4 mg PO Q8H PRN for muscle spasm 02/12/22 30 days #90 tabs metformin 500 mg tablet 500 mg PO DAILY 30 days #30 tabs 09/09/22 epinephrine 0.3 mg/0.3 mL 0.3 mg (0.3 mL) IM Q15M PRN 12/07/22 injection, auto-injector anaphylaxis #2 ea prednisone 20 mg tablet 20 mg PO BID #10 tabs 12/07/22 Allergies Allergy/AdvReac Type Severity Reaction Status Date / Time Sulfa (Sulfonamide Allergy Unknown hives Verified 12/06/22 23:45 Antibiotics) SEASONAL ALLERGIES Allergy Unknown RUNNY NOSE Uncoded 12/06/22 23:45 - ITCHY EYES Review of Systems Review of Systems: All other systems are reviewed and are negative Constitutional: Reports as per HPI and Reports no additional constitutional complaints Eyes: Reports as per HPI and Reports no additional eye complaints Reports system reviewed and no additional complaints, except as documented Cardiovascular: Reports as per HPI and Reports no additional cardiovascular complaints Respiratory: Reports as per HPI and Reports no additional respiratory complaints Gastrointestinal: Reports as per HPI and Reports no additional gastrointestinal complaints Genitourinary: Reports no additional female genitourinary complaints Musculoskeletal: Reports no additional musculoskeletal complaints Skin/Breast: Reports system reviewed and no additional complaints, except as docu Psychiatric: Reports no additional psychiatric complaints Endocrine: Reports no additional endocrine complaints Hematologic/Lymphatic: Reports no additional hematologic/lymphatic complaints Allergic/Immunologic: Reports no additional allergic/immunologic complaints Reports system reviewed and no additional complaints, except as documented and Reports Abnormal speech present [facility] Past Medical History Medical History Acute eczema Allergic dermatitis Anemia Asthma Atopic dermatitis Chest pain COVID-19 Eczema Lumbar degenerative disc disease Morbid obesity with BMI of 40.0-44.9, adult Obesity, morbid, BMI 40.0-49.9 СВЕТЛАНА (obstructive sleep apnea) Panniculitis Pure hypercholesterolemia Surgical History Gastric bypass status for obesity H/O: hysterectomy (~11/20/14) History of abdominal surgery History of cholecystectomy S/P panniculectomy Family History Family History Family/Other Back problem Mother Diabetes Hypertension Hypercholesteremia Depression Brother Gallstones Daughter Asthma Maternal Uncle Cancer Maternal Uncle Throat cancer Maternal Grandmother Diabetes Maternal Grandfather Diabetes Paternal Grandmother Myocardial infarction Social History Social History Housing: Apartment Are you a primary college and career counselor to a significant other at home: No Do you presently have visiting nurse or other home services: No Alcohol intake: current Alcohol intake frequency: holidays/special occasions only Patient Tobacco Use Status: Never used Tobacco Smoked in Last 30 Days: No e-Cigarette/Vaping Use: Never Used Second Hand Smoke Exposure: Yes Use of substances other than those prescribed or required for medical reasons: No Advance Directives: No Advance Directives Information Provided: No Patient : No service: No Current occupational status: employed Cognitive needs: No Hearing needs: No Vision needs: Yes Physical Exam ED Vital Signs: Vital Signs - 24 hr 12/06/22 23:51 Temperature 98.2 F Pulse Rate 83 Respiratory Rate 16 Blood Pressure 117/66 Pulse Oximetry 96 Oxygen Delivery Method Room Air BMI result Body Mass Index 46.1 Vital signs have been reviewed as appeared to be correct. Blood pressure normal. Heart rate normal. Respiration rate normal. Temperature normal. Oxygen saturation normal. Appearance: Alert. Oriented X3. No acute distress. Head: Normal external exam. Normocephalic. Atraumatic. No Mcdonald signs noted. No raccoon eyes noted Eyes: PERRLA. EOMI. Conjunctiva and sclera normal. Eyelids normal. ENT: TM's Normal. Pharynx normal. Uvula midline. Moist mucous membranes. No trismus noted. No drooling noted. No muffled voice noted. Patent airway, no stridor. Neck: Normal inspection. Neck supple. FROM. No adenopathy. Thyroid Normal. No meningeal signs. No neck mass noted. CVS: Normal heart rate and rhythm. Heart sound normal. No murmurs noted. Pulses normal throughout. Respiratory: No respiratory distress. Painless inspiration. Breath sounds normal. No wheezes/rales/rhonchi noted. Chest nontender. No accessory muscle usage noted or decreased air movement noted. Abdomen: Soft and nontender. Bowel sounds normal in all 4 quadrants. No distention noted. No organomegaly noted. No visible injury noted. Back: No CVA tenderness. Full range of motion noted. Skin: Skin warm and dry. Normal skin color. Normal skin turgor. Diffuse hives on the upper and lower extremities bilaterally and on the torso. Extremities: No lower extremity edema. Extremities exhibit normal range of motion. Extremities nontender. Neuro: Oriented X 3. Cranial nerve exam: II-XII are grossly intact No motor deficit. No sensory deficit. Reflexes normal. Course Course Course Narrative: Acute allergic reaction after eating a corn bread that was made in [place], no upper airway compromise, patient felt better after IV hydration/IV Benadryl/IV Pepcid/IV Solu-Medrol. Medications Administered Discontinued Medications Generic Name Dose Route Start Last Admin Trade Name Freq PRN Reason Stop Dose Admin Diphenhydramine HCl 50 mg 12/07/22 00:12 12/07/22 00:35 Diphenhydramine Hcl 50 Mg/Ml Vial IVPUSH 12/07/22 00:13 50 mg ONCE ONE Administration Famotidine 20 mg 12/07/22 00:12 12/07/22 00:35 Famotidine/Pf 20 Mg/2 Ml Vial IVPUSH 12/07/22 00:13 20 mg ONCE ONE Administration Sodium Chloride 1,000 mls @ 999 mls/hr 12/07/22 00:12 12/07/22 00:35 Ns IV 12/07/22 01:12 999 mls/hr .Q1H1M ONE Administration Methylprednisolone Sodium Succinate 125 mg 12/07/22 00:12 12/07/22 00:35 Methylprednisolone Sod Succ 125 Mg/2 Ml Vial IVPUSH 12/07/22 00:13 125 mg ONCE ONE Administration Medical Decision Making Differential Diagnosis Differential Diagnoses: The differential diagnosis associated with the presentation includes (Allergic reaction, upper airway compromise) Admission/Observation Consideration of admission/observation: Escalation of care including admission/ observation considered Prescription Management I considered prescription management with: Other (Environmental allergy.) Discharge Plan Discharge Clinical Impression: Allergic reaction Patient Disposition: Home, Self-Care Instructions: General Allergic Reaction (ED) Prescriptions: New prednisone 20 mg tablet 20 mg PO BID Qty: 10 0RF epinephrine 0.3 mg/0.3 mL auto-injector 0.3 mg IM Q15M PRN (Reason: anaphylaxis) Qty: 2 0RF Rx Instructions: for 3 doses No Action hydroxyzine HCl 25 mg tablet 25 mg PO QID PRN (Reason: for itch) Qty: 120 1RF tizanidine 4 mg tablet 4 mg PO Q8H PRN (Reason: for muscle spasm) 30 Days Qty: 90 1RF metformin 500 mg tablet 500 mg PO DAILY 30 Days Qty: 30 1RF lidocaine 5 % adhesive patch,medicated 1 patch topical DAILY Qty: 15 0RF Rx Instructions: leave on most painful area for up to 12 hrs ibuprofen 600 mg tablet 600 mg PO Q8H PRN (Reason: pain) Qty: 10 0RF ketoconazole 2 % shampoo 1 appl topical 2XW 14 Days Qty: 120 0RF acetaminophen [Tylenol] 325 mg capsule 650 mg PO Q6H PRN (Reason: fever or pain) Qty: 90 2RF albuterol sulfate 90 mcg/actuation HFA aerosol inhaler 2 puff inhalation Q6-8H PRN (Reason: shortness of breath or wheezing) 30 Days Qty: 8.5 5RF desonide 0.05 % cream 1 appl topical BID 30 Days Qty: 120 1RF loratadine 10 mg tablet 10 mg PO DAILY PRN (Reason: for itch) Qty: 30 0RF Dupixent Pen 300 mg/2 mL pen injector 300 mg subcut Q4W alclometasone 0.05 % ointment topical PRN Referrals: Lucas Washington MD [Primary Care Provider] -
== END 2022-12-07 01:42 | disposition home or self-care (01) ==
PROVIDERS: Emergency Provider Emergency Medicine; PCP Internal Medicine
DX: L50.0 Allergic urticaria (principal); Z98.84 Bariatric surgery status; Z79.899 Other long term (current) drug therapy
CPT/HCPCS: 96361; 96374; 96375; 99284; J1200; J2930

== ENCOUNTER 2023-01-03 19:25 | Emergency (ER) | payer OTHER, SELFPAY ==
[2023-01-03 19:28] VITALS: BP 129/98; PULSE 100; RESP 18; TEMP 36.4; O2SAT 96; BMI 40.7
--- NOTE | 2023-01-03 19:28 | ED.ALLEREA ---
HPI - Allergic Reaction General Chief complaint: Allergic Reaction Stated complaint: Allergic reaction/ diff breathing Time Seen by Provider: 01/03/23 19:45 Related Data Home Medications Medication Instructions Recorded Confirmed dupilumab 300 mg/2 mL subcutaneous 300 mg subcut Q4W 11/15/21 06/08/22 pen injector (Dupixent) alclometasone 0.05 % topical topical PRN 02/17/22 06/08/22 ointment Previous Rx's Medication Instructions Recorded ketoconazole 2 % shampoo 1 appl topical 2XW 14 days #120 mL 08/14/20 acetaminophen 325 mg capsule 650 mg PO Q6H PRN fever or pain 11/15/21 (Tylenol) #90 caps desonide 0.05 % topical cream 1 appl topical BID 30 days #120 11/15/21 grams loratadine 10 mg tablet 10 mg PO DAILY PRN for itch #30 11/15/21 tabs ibuprofen 600 mg tablet 600 mg PO Q8H PRN pain #10 tabs 12/26/21 lidocaine 5 % topical patch 1 patch topical DAILY #15 ea 12/26/21 hydroxyzine HCl 25 mg tablet 25 mg PO QID PRN for itch #120 tabs 02/12/22 tizanidine 4 mg tablet 4 mg PO Q8H PRN for muscle spasm 02/12/22 30 days #90 tabs metformin 500 mg tablet 500 mg PO DAILY 30 days #30 tabs 09/09/22 epinephrine 0.3 mg/0.3 mL 0.3 mg (0.3 mL) IM Q15M PRN 12/07/22 injection, auto-injector anaphylaxis #2 ea prednisone 20 mg tablet 20 mg PO BID #10 tabs 12/07/22 albuterol sulfate 90 mcg/actuation 2 puff inhalation Q6-8H PRN 12/16/22 aerosol inhaler shortness of breath or wheezing 30 days #8.5 grams diphenhydramine HCl 25 mg capsule 50 mg PO TID PRN allergic reaction 01/03/23 (Benadryl) #30 caps prednisone 20 mg tablet 40 mg PO DAILY #10 tabs 01/03/23 Allergies Allergy/AdvReac Type Severity Reaction Status Date / Time Sulfa (Sulfonamide Allergy Unknown hives Verified 12/06/22 23:45 Antibiotics) SEASONAL ALLERGIES Allergy Unknown RUNNY NOSE Uncoded 12/06/22 23:45 - ITCHY EYES PMFSH Past Medical History Medical History Acute eczema Allergic dermatitis Anemia Asthma Atopic dermatitis Chest pain COVID-19 Eczema Lumbar degenerative disc disease Morbid obesity with BMI of 40.0-44.9, adult Obesity, morbid, BMI 40.0-49.9 СВЕТЛАНА (obstructive sleep apnea) Panniculitis Pure hypercholesterolemia Surgical History Gastric bypass status for obesity H/O: hysterectomy (~11/20/14) History of abdominal surgery History of cholecystectomy S/P panniculectomy Family History Family History Family/Other Back problem Mother Diabetes Hypertension Hypercholesteremia Depression Brother Gallstones Daughter Asthma Maternal Uncle Cancer Maternal Uncle Throat cancer Maternal Grandmother Diabetes Maternal Grandfather Diabetes Paternal Grandmother Myocardial infarction Social History Social History Housing: Apartment Are you a primary home child care provider to a significant other at home: No Do you presently have visiting nurse or other home services: No Alcohol intake: current Alcohol intake frequency: holidays/special occasions only Patient Tobacco Use Status: Never used Tobacco e-Cigarette/Vaping Use: Never Used Second Hand Smoke Exposure: Yes Advance Directives: No Advance Directives Information Provided: No service: No Current occupational status: employed Cognitive needs: No Hearing needs: No Vision needs: Yes Physical Exam ED Vital Signs: BMI result Body Mass Index 40.7 Course Course Course Narrative: This is an RME: Additional HPI, ROS, PE not included below will be deferred to primary provider. Patient is a 42 year presents to the emergency department for evaluation concern for allergic reaction. Reports that she ate a slice of pizza 15 minutes prior to arrival she is experiencing swelling to the eyes, tingling sensation to the lips, rash to the bilateral arms. Speaking clear full sentences, no swelling to posterior oropharynx. Mild inspiratory wheezing she reports known allergy to mushrooms and avocado Plan: Spoke with broker in charge, moved to room 17 Medications Administered Discontinued Medications Generic Name Dose Route Start Last Admin Trade Name Freq PRN Reason Stop Dose Admin Diphenhydramine HCl 50 mg 01/03/23 19:33 01/03/23 19:47 Diphenhydramine Hcl 50 Mg/Ml Vial IVPUSH 01/03/23 19:34 50 mg ONCE ONE Administration Famotidine 20 mg 01/03/23 19:33 01/03/23 19:47 Famotidine/Pf 20 Mg/2 Ml Vial IVPUSH 01/03/23 19:34 20 mg ONCE ONE Administration Sodium Chloride 1,000 mls @ 999 mls/hr 01/03/23 19:45 01/03/23 20:48 Ns IV 01/03/23 20:45 Infused .Q1H1M MICHAEL Infusion Methylprednisolone Sodium Succinate 125 mg 01/03/23 19:33 01/03/23 19:47 Methylprednisolone Sod Succ 125 Mg/2 Ml Vial IVPUSH 01/03/23 19:34 125 mg ONCE ONE Administration Discharge Plan Discharge Clinical Impression: Allergy, food Patient Disposition: Home, Self-Care Instructions: Food Allergy (ED) Additional Instructions: Follow with PCP for allergy testing to find out what kind of food you are allergic to Benadryl and prednisone as prescribed Prescriptions: New prednisone 20 mg tablet 40 mg PO DAILY Qty: 10 0RF diphenhydramine HCl [Benadryl] 25 mg capsule 50 mg PO TID PRN (Reason: allergic reaction) Qty: 30 0RF No Action hydroxyzine HCl 25 mg tablet 25 mg PO QID PRN (Reason: for itch) Qty: 120 1RF tizanidine 4 mg tablet 4 mg PO Q8H PRN (Reason: for muscle spasm) 30 Days Qty: 90 1RF metformin 500 mg tablet 500 mg PO DAILY 30 Days Qty: 30 1RF albuterol sulfate 90 mcg/actuation HFA aerosol inhaler 2 puff inhalation Q6-8H PRN (Reason: shortness of breath or wheezing) 30 Days Qty: 8.5 5RF lidocaine 5 % adhesive patch,medicated 1 patch topical DAILY Qty: 15 0RF Rx Instructions: leave on most painful area for up to 12 hrs ibuprofen 600 mg tablet 600 mg PO Q8H PRN (Reason: pain) Qty: 10 0RF prednisone 20 mg tablet 20 mg PO BID Qty: 10 0RF epinephrine 0.3 mg/0.3 mL auto-injector 0.3 mg IM Q15M PRN (Reason: anaphylaxis) Qty: 2 0RF Rx Instructions: for 3 doses ketoconazole 2 % shampoo 1 appl topical 2XW 14 Days Qty: 120 0RF acetaminophen [Tylenol] 325 mg capsule 650 mg PO Q6H PRN (Reason: fever or pain) Qty: 90 2RF desonide 0.05 % cream 1 appl topical BID 30 Days Qty: 120 1RF loratadine 10 mg tablet 10 mg PO DAILY PRN (Reason: for itch) Qty: 30 0RF Dupixent Pen 300 mg/2 mL pen injector 300 mg subcut Q4W alclometasone 0.05 % ointment topical PRN Interventions: ED Discharge Assessment Last Done: 01/03/23 22:06 Discharge Date/Time: 01/03/23 22:07
[2023-01-03] MEDS: Famotidine/PF 20 MG/2 ML VIAL IVPUSH (19:47)
[2023-01-03] MEDS: methylPREDNISolone Sod Succ 125 MG/2 ML VIAL IVPUSH (19:47)
[2023-01-03] MEDS: 0.9 % Sodium Chloride 1,000 ML 999 ML IV (19:47)
[2023-01-03] MEDS: diphenhydrAMINE HCL 50 MG/ML VIAL IVPUSH (19:47)
--- NOTE | 2023-01-03 20:15 | PC.NURSE ---
Pt states she is feeling much uch better. Respirations even and unlabored. Eyelid and lower lip swelling remain.
--- NOTE | 2023-01-03 20:34 | PC.NURSE ---
Pt ambulatory to restroom with steady gait in no acute distress.
--- NOTE | 2023-01-03 21:41 | ED.ALLEREA ---
HPI - Allergic Reaction General Chief complaint: Allergic Reaction Stated complaint: Allergic reaction/ diff breathing Time Seen by Provider: 01/03/23 19:45 Source: patient Mode of arrival: ambulatory Limitations: no limitations History of Present Illness HPI narrative: Patient's history of allergic reaction to nonspecific foot in the past had pizza earlier today and felt itching of the face swelling of the eyes, took 20 mg of prednisone Benadryl prior to arrival now feeling better no speech problem no throat swelling no difficulty in breathing Related Data Home Medications Medication Instructions Recorded Confirmed dupilumab 300 mg/2 mL subcutaneous 300 mg subcut Q4W 11/15/21 06/08/22 pen injector ([employer]) alclometasone 0.05 % topical topical PRN 02/17/22 06/08/22 ointment Previous Rx's Medication Instructions Recorded ketoconazole 2 % shampoo 1 appl topical 2XW 14 days #120 mL 08/14/20 acetaminophen 325 mg capsule 650 mg PO Q6H PRN fever or pain 11/15/21 (Tylenol) #90 caps desonide 0.05 % topical cream 1 appl topical BID 30 days #120 11/15/21 grams loratadine 10 mg tablet 10 mg PO DAILY PRN for itch #30 11/15/21 tabs ibuprofen 600 mg tablet 600 mg PO Q8H PRN pain #10 tabs 12/26/21 lidocaine 5 % topical patch 1 patch topical DAILY #15 ea 12/26/21 hydroxyzine HCl 25 mg tablet 25 mg PO QID PRN for itch #120 tabs 02/12/22 tizanidine 4 mg tablet 4 mg PO Q8H PRN for muscle spasm 02/12/22 30 days #90 tabs metformin 500 mg tablet 500 mg PO DAILY 30 days #30 tabs 09/09/22 epinephrine 0.3 mg/0.3 mL 0.3 mg (0.3 mL) IM Q15M PRN 12/07/22 injection, auto-injector anaphylaxis #2 ea prednisone 20 mg tablet 20 mg PO BID #10 tabs 12/07/22 albuterol sulfate 90 mcg/actuation 2 puff inhalation Q6-8H PRN 12/16/22 aerosol inhaler shortness of breath or wheezing 30 days #8.5 grams diphenhydramine HCl 25 mg capsule 50 mg PO TID PRN allergic reaction 01/03/23 (Benadryl) #30 caps prednisone 20 mg tablet 40 mg PO DAILY #10 tabs 01/03/23 Allergies Allergy/AdvReac Type Severity Reaction Status Date / Time Sulfa (Sulfonamide Allergy Unknown hives Verified 12/06/22 23:45 Antibiotics) SEASONAL ALLERGIES Allergy Unknown RUNNY NOSE Uncoded 12/06/22 23:45 - ITCHY EYES Review of Systems Review of Systems: Yes all other systems are reviewed and are negative [facility] Past Medical History Medical History Acute eczema Allergic dermatitis Anemia Asthma Atopic dermatitis Chest pain COVID-19 Eczema Lumbar degenerative disc disease Morbid obesity with BMI of 40.0-44.9, adult Obesity, morbid, BMI 40.0-49.9 СВЕТЛАНА (obstructive sleep apnea) Panniculitis Pure hypercholesterolemia Surgical History Gastric bypass status for obesity H/O: hysterectomy (~11/20/14) History of abdominal surgery History of cholecystectomy S/P panniculectomy Family History Family History Family/Other Back problem Mother Diabetes Hypertension Hypercholesteremia Depression Brother Gallstones Daughter Asthma Maternal Uncle Cancer Maternal Uncle Throat cancer Maternal Grandmother Diabetes Maternal Grandfather Diabetes Paternal Grandmother Myocardial infarction Social History Social History Housing: Apartment Are you a primary customer care manager to a significant other at home: No Do you presently have visiting nurse or other home services: No Alcohol intake: current Alcohol intake frequency: holidays/special occasions only Patient Tobacco Use Status: Never used Tobacco e-Cigarette/Vaping Use: Never Used Second Hand Smoke Exposure: Yes Advance Directives: No Advance Directives Information Provided: No service: No Current occupational status: employed Cognitive needs: No Hearing needs: No Vision needs: Yes Physical Exam ED Vital Signs: Vital Signs - 24 hr 01/03/23 19:28 01/03/23 21:50 Temperature 97.5 F Pulse Rate 100 99 Respiratory Rate 18 20 Blood Pressure 129/98 H 127/89 Pulse Oximetry 96 99 Oxygen Delivery Method Room Air Room Air BMI result Body Mass Index 40.7 Appearance: Alert. Oriented X3. No acute distress. Eyes: slight swelling of the periorbital area ENT: Pharynx normal. Oral Mucosa moist slight swelling of the lower lip uvula normal Neck: Normal inspection. Neck supple. CVS: Normal heart rate and rhythm. Pulses normal. Respiratory: No respiratory distress. Equal air entry bilateral, no wheezing/rales/rhonchi Abdomen: Soft and nontender. Skin: Skin warm and dry. Normal skin color. Normal skin turgor. Extremities: No lower extremity edema. No calf tenderness Neuro: Oriented X 3. Medications Administered Discontinued Medications Generic Name Dose Route Start Last Admin Trade Name Freq PRN Reason Stop Dose Admin Diphenhydramine HCl 50 mg 01/03/23 19:33 01/03/23 19:47 Diphenhydramine Hcl 50 Mg/Ml Vial IVPUSH 01/03/23 19:34 50 mg ONCE ONE Administration Famotidine 20 mg 01/03/23 19:33 01/03/23 19:47 Famotidine/Pf 20 Mg/2 Ml Vial IVPUSH 01/03/23 19:34 20 mg ONCE ONE Administration Sodium Chloride 1,000 mls @ 999 mls/hr 01/03/23 19:45 01/03/23 20:48 Ns IV 01/03/23 20:45 Infused .Q1H1M MICHAEL Infusion Methylprednisolone Sodium Succinate 125 mg 01/03/23 19:33 01/03/23 19:47 Methylprednisolone Sod Succ 125 Mg/2 Ml Vial IVPUSH 01/03/23 19:34 125 mg ONCE ONE Administration Medical Decision Making Medical Decision Making MDM Narrative: Patient with some kind of food allergy improved after Benadryl and Solu-Medrol in the ER advised to follow-up with PCP for further evaluation Discharge Plan Discharge Clinical Impression: Allergy, food Patient Disposition: Home, Self-Care Instructions: Food Allergy (ED) Additional Instructions: Follow with PCP for allergy testing to find out what kind of food you are allergic to Benadryl and prednisone as prescribed Prescriptions: New prednisone 20 mg tablet 40 mg PO DAILY Qty: 10 0RF diphenhydramine HCl [Benadryl] 25 mg capsule 50 mg PO TID PRN (Reason: allergic reaction) Qty: 30 0RF No Action hydroxyzine HCl 25 mg tablet 25 mg PO QID PRN (Reason: for itch) Qty: 120 1RF tizanidine 4 mg tablet 4 mg PO Q8H PRN (Reason: for muscle spasm) 30 Days Qty: 90 1RF metformin 500 mg tablet 500 mg PO DAILY 30 Days Qty: 30 1RF albuterol sulfate 90 mcg/actuation HFA aerosol inhaler 2 puff inhalation Q6-8H PRN (Reason: shortness of breath or wheezing) 30 Days Qty: 8.5 5RF lidocaine 5 % adhesive patch,medicated 1 patch topical DAILY Qty: 15 0RF Rx Instructions: leave on most painful area for up to 12 hrs ibuprofen 600 mg tablet 600 mg PO Q8H PRN (Reason: pain) Qty: 10 0RF prednisone 20 mg tablet 20 mg PO BID Qty: 10 0RF epinephrine 0.3 mg/0.3 mL auto-injector 0.3 mg IM Q15M PRN (Reason: anaphylaxis) Qty: 2 0RF Rx Instructions: for 3 doses ketoconazole 2 % shampoo 1 appl topical 2XW 14 Days Qty: 120 0RF acetaminophen [Tylenol] 325 mg capsule 650 mg PO Q6H PRN (Reason: fever or pain) Qty: 90 2RF desonide 0.05 % cream 1 appl topical BID 30 Days Qty: 120 1RF loratadine 10 mg tablet 10 mg PO DAILY PRN (Reason: for itch) Qty: 30 0RF Dupixent Pen 300 mg/2 mL pen injector 300 mg subcut Q4W alclometasone 0.05 % ointment topical PRN Interventions: ED Discharge Assessment Last Done: 01/03/23 22:06 Discharge Date/Time: 01/03/23 22:07
[2023-01-03 21:50] VITALS: BP 127/89; PULSE 99; RESP 20; O2SAT 99
== END 2023-01-03 22:07 | disposition home or self-care (01) ==
PROVIDERS: Emergency Provider Internal Medicine; PCP Internal Medicine
DX: R06.02 Shortness of breath (principal); T78.1XXA Other adverse food reactions, not elsewhere classified, initial encounter; T78.49XA Other allergy, initial encounter; X58.XXXA Exposure to other specified factors, initial encounter; Z79.899 Other long term (current) drug therapy
CPT/HCPCS: 96361; 96374; 96375; 99284; J1200; J2930

== ENCOUNTER 2023-02-10 08:50 | Outpatient (REF) | payer OTHER, SELFPAY | END 2023-02-10 08:51 | disposition home or self-care (01) | LOC: HO.LAB 08:50 | PROVIDERS: PCP Internal Medicine; Visit Provider Internal Medicine | DX: Z13.89 Encounter for screening for other disorder (principal) ==

== ENCOUNTER 2023-02-12 10:13 | Outpatient (AMB) | payer OTHER, SELFPAY ==
[2023-02-12 10:15] VITALS: BP 126/80; PULSE 88; O2SAT 96; BMI 45.8
--- NOTE | 2023-02-12 10:15 | MHC.PC.OV ---
Vital Signs 02/12/23 10:15 Height 5 ft 3 in Weight 258 lb 9 oz BMI 45.8 BP 126/80 Blood Pressure Location Lt brachial Position Sitting Pulse 88 Pulse Source Pulse Oximeter Pulse Oximetry (%) 96 Oxygen Delivery Method Room Air Intake Visit Reasons: Blurry Vision/Shakiness/ Anxious Hand Tier Required: No Accompanied by: Self / Same As Patient Allergies Sulfa (Sulfonamide Antibiotics) Allergy (Unknown, Verified 02/12/23 13:25) hives SEASONAL ALLERGIES Allergy (Unknown, Uncoded 02/12/23 13:25) RUNNY NOSE - ITCHY EYES Medication List - Last Reconciled 02/12/23 by Lucas Washington MD acetaminophen (Tylenol) 650 mg (2 x 325 mg) PO Q6H PRN albuterol sulfate 90 mcg/actuation 2 puffs inhalation Q6-8H PRN 30 days alclometasone 0.05% topical PRN desonide 0.05% 1 appl topical BID 30 days diphenhydramine HCl (Benadryl) 50 mg (2 x 25 mg) PO TID PRN dupilumab (Dupixent) 300 mg subcut Q4W epinephrine 0.3 mg (0.3 mL) IM Q15M PRN hydroxyzine HCl 25 mg PO QID PRN ibuprofen 600 mg PO Q8H PRN ketoconazole 2% 1 appl topical 2XW 14 days lidocaine 5% 1 patch topical DAILY loratadine 10 mg PO DAILY PRN metformin 500 mg PO DAILY 30 days prednisone 40 mg (2 x 20 mg) PO DAILY prednisone 20 mg PO BID tizanidine 4 mg PO Q8H PRN 30 days Tobacco use date assessed: 02/12/23 Dental Screening Dental Screen Date: 02/12/23 Did you have a dental visit in the last 12 months?: Yes Did you have a dental problem in the last 6 months where you did not have access to dental care?: No Was dental information given to patient?: Patient has dentist HPI Blurry Vision/Shakiness/ Anxious HPI Details Patient comes in today for her follow up visit States that she has been experiencing recurrent symptoms of over all weakness, shakiness, blurring of vision and increasing anxiety often lately Is still taking all of her current Rx and is not sure what is triggering her symptoms - has been advised by someone recently that her symptoms could be related to her anxiety States that she has a history of gastric bypass and is concerned that some of her symptoms may be related to this Recalls that she went to the ER a couple of months ago for some allergic reaction after eating some pizza - is still not sure what it was that she ate that triggered the reaction but recalls being advised that she needs to get a referral to get allergy testing done States that her allergic symptoms have since resolved and does not think that her current issues are related to allergy She denies any headaches or dizziness; denies any fever Denies any chest pains, no SOB No nausea/vomiting, no abdominal pain No change in bowel habits noted She has NOT had any follow up labs done in a while now She continues to experience increased pain over her neck and lower back and feels that they have been slowly getting worse lately Adds that she recalls being told by dermatology a few months ago that the skin lesions she had came out as sarcoid lesions on Bx and she was advised to see pulmonary for further evaluation and management Also states that the plastic surgeon that she was previously referred to for consideration for panniculectomy and breast reduction saw her a few months ago but advised her that insurance will not cover the surgery she is looking for; states that she wanted to get breast reduction surgery but they only talked to her about a panniculectomy Would like to get a referral to another plastic surgeon to look into this [facility] Medical History Acute eczema Allergic dermatitis Anemia Asthma Atopic dermatitis Chest pain COVID-19 Eczema Lumbar degenerative disc disease Morbid obesity with BMI of 40.0-44.9, adult Obesity, morbid, BMI 40.0-49.9 СВЕТЛАНА (obstructive sleep apnea) Panniculitis Pure hypercholesterolemia Sarcoidosis Surgical History Gastric bypass status for obesity H/O: hysterectomy (~11/20/14) History of abdominal surgery History of cholecystectomy S/P panniculectomy Family History Family/Other Back problem Mother Diabetes Hypertension Hypercholesteremia Depression Brother Gallstones Daughter Asthma Maternal Uncle Cancer Maternal Uncle Throat cancer Maternal Grandmother Diabetes Maternal Grandfather Diabetes Paternal Grandmother Myocardial infarction Social History Housing: Apartment Are you a primary lawn caretaker to a significant other at home: No Do you presently have visiting nurse or other home services: No Alcohol intake: current Alcohol intake frequency: holidays/special occasions only Patient Tobacco Use Status: Never used Tobacco e-Cigarette/Vaping Use: Never Used Second Hand Smoke Exposure: Yes service: No Current occupational status: employed Cognitive needs: No Hearing needs: No Vision needs: Yes Questionnaire PHQ-9 Over the last 2 weeks, how often have you been bothered by any of the following problems? 1. Little interest or pleasure in doing things: not at all 2. Feeling down, depressed, or hopeless: not at all 3. Trouble falling or staying asleep, or sleeping too much: not at all 4. Feeling tired or having little energy: not at all 5. Poor appetite or overeating: not at all 6. Feeling bad about yourself - or that you are a failure or have let yourself or your family down: not at all 7. Trouble concentrating on things, such as reading the newspaper or watching television: not at all 8. Moving or speaking so slowly that other people could have noticed. Or the opposite - being so fidgety or restless that you have been moving around a lot more than usual: not at all 9. Thoughts that you would be better off or of hurting yourself in some way: not at all Total score: 0 Depression Screening Interpretation: Negative 79684 - PHQ-9 Billing: Yes Source: Developed by Drs. Neil Dodd, Karina Avalos, Steve Quevedo and colleagues, with an educational radha from [employer]. Thrive Questionnaire Date Thrive assessed: 02/12/23 I am a: Patient What is your living situation today?: I have a steady place to live Within the past 12 months, did the food you bought not last and you didn't have the money to get more?: Never true Within the past 12 months, did you worry whether your food would run out before you got money to buy more?: Never true Do you have trouble paying for medicines?: No Do you have trouble getting transportation to medical appointments?: No Do you have trouble paying your heating and electricity bill?: No Do you have trouble taking care of your child, family member or friend?: No Do you have trouble with day-to-day activities such as bathing, preparing meals, shopping, managing finances, etc.?: No Are you currently unemployed and looking for a job?: No Are you interested in more education?: No Please select the resources that you would like help with: None Currently or been in a relationship where the following occur: no concerns reported AUDIT C Alcohol Use Questionnaire (AUDIT-C) 1. How often do you have a drink containing alcohol?: Monthly or less 2. How many drinks containing alcohol do you have on a typical day when you are drinking?: 1 or 2 3. How often do you have six or more drinks on one occasion?: Never Total Score: 1 Score Reviewed/Action Taken: Yes CAITY-7 AMB Questionnaire CAITY-7 Date CAITY - 7 assessed: 02/12/23 Feeling nervous, anxious, or on edge: 0 = Not at all Not being able to stop or control worryin = Not at all Worrying too much about different things: 0 = Not at all Source: Developed by Drs. Neil Dodd, Karina Avalos, Steve Quevedo and colleagues, with an educational radha from [employer]. Review of Systems Const Denies chills, Reports fatigue, Denies fever(s), Denies headache(s), Reports lethargy and Reports weakness ENT Denies dysphagia, Denies dizziness, Denies otalgia, Denies headache(s), Reports neck pain (increasing lately), Denies odynophagia and Denies sore throat Card Denies chest pain, Denies palpitations and Denies dyspnea Resp Denies cough and Denies dyspnea GI Denies abdominal pain, Denies constipation, Denies dysphagia, Denies heartburn, Denies diarrhea, Denies nausea, Denies odynophagia and Denies vomiting Denies nocturia and Denies dysuria Musc Reports back pain (recurrent; increasing lately), Reports arthralgias (involving multiple joints; pain occurring on and off), Reports muscle weakness (feels shaky at times), Reports neck pain (increasing lately) and Reports tingling Neuro Denies dizziness, Denies headache(s), Reports tingling and Reports weakness Endo Reports fatigue and Denies palpitations Physical exam (Primary Care) Vital Signs: Last Vital Signs Pulse 88 02/12/23 10:15 BP 126/80 02/12/23 10:15 Pulse Ox 96 02/12/23 10:15 Oxygen Delivery Method Room Air 02/12/23 10:15 BMI result Body Mass Index 45.8 Tobacco/Smoking Status: Tobacco use Status Tobacco use date assessed 02/12/23 02/12/23 10:21 Patient Tobacco Use Status Never used Tobacco 02/12/23 10:21 e-Cigarette/Vaping Use Never Used 02/12/23 10:21 PHQ-9: PHQ-9 Score PHQ-9: Total score 0 02/12/23 11:16 Depression Screening Interpretation: Negative Thrive Assessment: Date of Thrive Assessment Date Thrive assessed 02/12/23 02/12/23 10:21 Currently or been in a relationship where the following occur: no concerns reported Const General: no acute distress and alert HENMT Ears: TM's normal bilaterally and EAC's normal Throat: Yes posterior oropharynx normal and Yes tonsils normal (no TP congestion) Neck Neck: Yes no lymphadenopathy and Yes supple Resp Auscultation: clear to auscultation bilaterally, no rales and no wheezes Cardio Rate: regular rate Rhythm: regular rhythm Heart sounds: no murmurs GI Palpation (GI): Soft to palpation and nontender Auscultation: normal bowel sounds Back/Spine/Pelvis Cervical Spine: cervical muscular tenderness and Cervical spine tenderness Thoracic/Lumbar Spine: paraspinal muscle tenderness on the right in the mid lumbar and in the lower lumbar and bilaterally in the mid thoracic and in the lower thoracic Extrem General: Yes no clubbing, cyanosis or edema Right lower extremity: foot Details: tenderness Location: of the great toe Location: at the MTP joint Assessment and Plan Assessment & Plan (1) Pure hypercholesterolemia: Code(s): E78.00 - Pure hypercholesterolemia, unspecified Plan: Reinforced low cholesterol diet Her cholesterol level was significantly elevated back in 2009 but she has been able to get them improved since then with diet modification alone Had some follow up labs done ordered last year but she was not able to get any of them done Will send patient for some labs GATITO for follow up/further evaluation of her current multiple and generalized symptoms (2) Asthma: Code(s): J45.909 - Unspecified asthma, uncomplicated Qualifiers: Asthma severity: mild Asthma persistence: intermittent Asthma complication type: uncomplicated Qualified Code(s): J45.20 - Mild intermittent asthma, uncomplicated Plan: Stable - continue Albuterol HFA 2 inhalations every 6 hours as needed States that her asthma and eczema have both improved a lot with less flare ups since she was started on Dupixent several weeks ago Continue Dupixent 300 mg inj SQ every 4 weeks (3) Lumbar degenerative disc disease: Code(s): M51.36 - Other intervertebral disc degeneration, lumbar region Plan: Reinforced activity and weight-lifting restrictions Lumbar spine MRI done in May 2020 revealed: 1. There are 4 nonrib-bearing lumbar-type vertebral bodies with sacralization of L5.? 2. L3-L4 mild broad-based disc bulge with a superimposed shallow right extraforaminal disc protrusion which contacts the exiting right L3 nerve root. Bilateral facet arthropathy and thickening of the ligamentum flavum causing minimal central canal as well as [id number] right and mild left neural foraminal stenosis. 3. L4-L5 broad-based disc bulge, slightly asymmetric to the right with posterior annular fissuring. This abuts the traversing right L5 nerve root within the lateral recess. Bilateral facet arthropathy with mild bilateral neural foraminal stenosis. Follow up with Pain Management as scheduled Will send her for repeat lumbar spine x-rays for further evaluation (4) Neck pain: Code(s): M54.2 - Cervicalgia Plan: Will send her for cervical spine x-rays for further evaluation (5) СВЕТЛАНА (obstructive sleep apnea): Code(s): G47.33 - Obstructive sleep apnea (adult) (pediatric) Plan: Continue using her CPAP device when sleeping at night daily Follow up with Sleep Medicine as scheduled (6) Atopic dermatitis: Code(s): L20.9 - Atopic dermatitis, unspecified Qualifiers: Atopic dermatitis type: unspecified Qualified Code(s): L20.9 - Atopic dermatitis, unspecified Plan: Stable - continue Desonide 0.05% cream BID PRN States that her eczema has improved significantly since she was started on Dupixent several weeks ago Follow up with dermatology as scheduled (7) Sarcoidosis: Code(s): D86.9 - Sarcoidosis, unspecified Plan: Was advised by Dr. Comer a few months ago that the skin lesions they biopsied from her turned out to be sarcoid lesions and that she should see pulmonary for further evaluation and management of sarcoidosis Will send patient for some labs GATITO for further evaluation Will also send her for chest x-rays and refer her to pulmonary for further evaluation and management (8) History of food allergy: Code(s): Z91.018 - Allergy to other foods Plan: Will refer her to pensions retirement plan specialist for allergy testing (9) Macromastia: Code(s): N62 - Hypertrophy of breast Plan: She was previously referred for consideration for breast reduction surgery but has reportedly been advised that she will only be able to undergo breast reduction surgery IF she is able to lose at least 10 pounds, which she has been struggling with Per request, will refer her to another plastic surgeon for consideration for reduction mammoplasty and panniculectomy (10) Obesity, morbid, BMI 40.0-49.9: Comment: 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 08/02/2019 Code(s): E66.01 - Morbid (severe) obesity due to excess calories Plan: Reinforced diet/exercise as tolerated/lose weight Has been [place] [facility] [place] and to explore other aspects as patient seems to have failed bariatric surgery - has reportedly not lost much weight despite her gastric bypass surgery and subsequent conversion surgery Has reportedly been advised that she will only be able to undergo breast reduction surgery IF she is able to lose at least 10 pounds, which she has been struggling with, and is asking for any help with this She was previously tried on some Metformin 500 mg QD (best taken about an hour before her lunch) to see if this will help her lose some weight (by curbing her appetite); states that she has not lost much so far Per request, will refer her to another plastic surgeon for consideration for reduction mammoplasty and panniculectomy Follow up with Weight Management as scheduled Plan Follow up in 3 months Orders: Orders Comprehensive [place]. Panel Fast Today E78.00 - Pure hypercholesterolemia, unspecified Hemoglobin A1c Today R73.01 - Impaired fasting glucose Lipid Panel Today E78.00 - Pure hypercholesterolemia, unspecified TSH reflex Free T4 Today E78.00 - Pure hypercholesterolemia, unspecified Vitamin D 25-OH Total Today E55.9 - Vitamin D deficiency, unspecified Complete Blood Count Auto Diff Today I10 - Essential (primary) hypertension UA CC w/rflx Micro + Cult Today R30.0 - Dysuria Vitamin B12 and Folate Today E53.8 - Deficiency of other specified B group vitamins, R20.2 - Paresthesia of skin Magnesium Today E83.42 - Hypomagnesemia, R20.2 - Paresthesia of skin C Reactive Protein Today M54.50 - Low back pain, unspecified Erythrocyte Sedimentation Rate Today M54.50 - Low back pain, unspecified XR cervical spine 3V Today M54.2 - Cervicalgia XR lumbar spine 2-3V Today M54.50 - Low back pain, unspecified XR chest 2V Today D86.9 - Sarcoidosis, unspecified Referrals Plastic Surgery Referral M79.3 - Panniculitis, unspecified, N62 - Hypertrophy of breast Allergy & Immunology Referral Z91.018 - Allergy to other foods Pulmonary Medicine Referral D86.9 - Sarcoidosis, unspecified Coding Level of Care Code Est Pt Level 4 (30993) Diagnoses Pure hypercholesterolemia E78.00 Asthma J45.20 Asthma severity: mild Asthma persistence: intermittent Asthma complication type: uncomplicated Lumbar degenerative disc disease M51.36 Neck pain M54.2 СВЕТЛАНА (obstructive sleep apnea) G47.33 Atopic dermatitis L20.9 Atopic dermatitis type: unspecified Sarcoidosis D86.9 History of food allergy Z91.018 Macromastia N62 Obesity, morbid, BMI 40.0-49.9 E66.01
== END 2023-02-12 11:30 | disposition home or self-care (01) ==
PROVIDERS: PCP Internal Medicine; Visit Provider Internal Medicine
DX: J45.20 Mild intermittent asthma, uncomplicated (principal); E66.01 Morbid (severe) obesity due to excess calories; Z68.42 Body mass index [BMI] 45.0-49.9, adult; D86.9 Sarcoidosis, unspecified; E78.00 Pure hypercholesterolemia, unspecified; M54.2 Cervicalgia
CPT/HCPCS: 99214

== ENCOUNTER 2023-02-12 11:27 | Outpatient (REF) | payer OTHER, SELFPAY ==
--- NOTE | ~2023-02-12 | XR_ITS ---
EXAMINATION: XR CERVICAL SPINE CLINICAL INFORMATION: Pain COMPARISON: 01/02/2022 TECHNIQUE: 3 views of the cervical spine were obtained. FINDINGS: Reversal of normal cervical lordosis. No prevertebral soft tissue swelling. Vertebral heights and disc spaces appear intact. Posterior elements intact. Lung apices clear. XR/XR cervical spine 3V IMPRESSION: Reversal of normal cervical lordosis. No evidence of any disc space narrowing or subluxation.
--- NOTE | ~2023-02-12 | XR_ITS ---
EXAMINATION: XR LUMBOSACRAL SPINE CLINICAL INFORMATION: Lower back pain COMPARISON: 02/01/2022 TECHNIQUE: Three views of the lumbosacral spine. FINDINGS: There is a previous surgery with clips and mesh coil placement. 4 nonrib-bearing lumbar-type vertebral bodies again noted. Similar appearance of early marginal endplate osteophytes throughout. No fracture. No spondylolysis. Mild narrowing of the lower most lumbar facet joint. No subluxation. XR/XR lumbar spine 2-3V IMPRESSION: No acute findings. Mild spondylosis as above.
--- NOTE | ~2023-02-12 | XR_ITS ---
EXAMINATION: XR CHEST CLINICAL INFORMATION: Sarcoidosis COMPARISON: Baseline 08/15/2021 TECHNIQUE: 2 views of the chest were obtained. FINDINGS: Prominence of the pulmonary hilar opacity on the lateral projection suspected consistent with history of sarcoidosis. There is no evidence of any lung disease or pleural disease. Heart size normal. No osseous abnormality. XR/XR chest 2V IMPRESSION: No acute infiltrate or pleural disease. Prominence of the pulmonary hilum suspected suggestive of of sarcoidosis.
[2023-02-12 11:49] LABS: MANUAL DIFF FLAG NO
[2023-02-12 11:55] LABS: Basophils Percent Auto 0.4 % (0-2); Eosinophils Absolute Auto 0.2 X10*3/uL (0.0-0.4); Eosinophils Percent Auto 3.3 % (0-4); Hematocrit 39.9 % (37.0-47.0); Hemoglobin 13.2 g/dl (12.0-16.0); Imm Gran Abs Auto 0.02 X10*3/uL (0.00-0.03); Imm Gran Pct Auto 0.3 % (0.0-0.4); Lymphocytes Absolute Auto 1.7 X10*3/uL (1.2-4.9); Lymphocytes Percent Auto 23.2 % (20-40); Mean Corpuscular HGB Conc 33.1 g/dl (31.0-35.0); Mean Corpuscular Hemoglobin 29.3 pg (27.0-33.0); Mean Corpuscular Volume 88.5 fL (80.0-98.0); Monocytes Absolute Auto 0.7 X10*3/uL (0.1-1.2); Monocytes Percent Auto 9.6 % (2-11); Neutrophils Absolute Auto 4.6 x10*3/uL (2.0-8.3); Neutrophils Percent Auto 63.2 % (45-73); Platelet Count 346 X10*3/uL (160-400); Red Blood Count 4.51 X10*6/uL (4.20-5.50); Red Cell Distribution Width 13.2 % (11.0-16.0); White Blood Count 7.3 X10*3/uL (4.8-10.8)
[2023-02-12 12:37] LABS: Erythrocyte Sedimentation Rate 22 MM/HR (0-20)
[2023-02-12 12:37] LABS: Appearance Urine Clear; Color Urine Yellow; Glucose Urine UA Negative (Negative); Leukocyte Esterase Urine Negative (Negative); Nitrite Urine Negative (Negative); PH 6.5 (5.0-9.0); Urine Blood Negative (Negative); Urine Ketones Negative (Negative); Urine Protein Negative (Neg-Trace)
[2023-02-12 13:42] LABS: Estimated Average Glucose 97 mg/dL
[2023-02-12 13:47] LABS: Creatinine Urine 87.13 mg/dL
[2023-02-12 15:09] LABS: Alanine Aminotransferase 22 U/L (0-31); Albumin Level 3.7 g/dL (3.5-5.0); Alkaline Phosphatase 67 U/L (39-117); Anion Gap 14 (12-20); Aspartate Amino Transferase 20 U/L (5-31); Bilirubin Total 0.4 mg/dL (0.0-1.0); Blood Urea Nitrogen 10 mg/dL (9-16); C Reactive Protein 1.51 mg/dL (< or = 0.50); Calcium 9.2 mg/dL (8.4-10.2); Carbon Dioxide 21 mmol/L (22-29); Chloride 106 mmol/L (96-108); Cholesterol 185 mg/dL; Estimated Glomerular Filt Rate > 60; Glucose Fasting 97 mg/dL (60-99); HDL Cholesterol 48 mg/dL; LDL Cholesterol Calculated 124 mg/dl; Magnesium 2.2 mg/dL (1.6-2.6); Potassium 4.1 mmol/L (3.3-5.1); Sodium 137 mmol/L (135-145); Total Protein 7.2 g/dL (6.5-8.0); Triglycerides 69 mg/dL
[2023-02-12 15:27] LABS: Folate 13.8 ng/mL (> or = 4.0); Vitamin B12 337 pg/mL (200-900)
[2023-02-12 15:31] LABS: TSH reflex Free T4 1.14 uIU/mL (0.32-4.0); Vitamin D 25-OH Total 19.9 ng/mL (>30)
== END 2023-02-12 11:28 | disposition home or self-care (01) ==
LOC: HO.LAB 11:27
PROVIDERS: PCP Internal Medicine; Visit Provider Internal Medicine
DX: M54.50 Low back pain, unspecified (principal); M54.2 Cervicalgia; E78.00 Pure hypercholesterolemia, unspecified; R20.2 Paresthesia of skin; E55.9 Vitamin D deficiency, unspecified; E53.8 Deficiency of other specified B group vitamins; R73.01 Impaired fasting glucose; D86.9 Sarcoidosis, unspecified; I10 Essential (primary) hypertension; Z00.00 Encounter for general adult medical examination without abnormal findings
CPT/HCPCS: 36415; 71046; 72040; 72100; 80053; 80061; 81003; 82043; 82306; 82607; 82746; 83036; 83735; 84443; 85025; 85652; 86140

== ENCOUNTER 2023-05-27 12:14 | Outpatient (AMB) | payer OTHER, SELFPAY ==
[2023-05-27 12:20] VITALS: BP 132/90; PULSE 77; O2SAT 95; BMI 45.2
--- NOTE | 2023-05-27 12:20 | A.OFFPC_ITS ---
Vital Signs 05/27/23 12:20 Height 5 ft 3 in Weight 255 lb 2 oz BMI 45.2 BP 132/90 H Blood Pressure Location Lt brachial Position Sitting Pulse 77 Pulse Source Pulse Oximeter Pulse Oximetry (%) 95 Oxygen Delivery Method Room Air Intake Visit Reasons: sarcoidosis Eligibility Specialist Required: No Accompanied by: Self / Same As Patient Allergies Sulfa (Sulfonamide Antibiotics) Allergy (Unknown, Verified 05/27/23 22:56) hives SEASONAL ALLERGIES Allergy (Unknown, Uncoded 05/27/23 22:56) RUNNY NOSE - ITCHY EYES Medication List - Last Reconciled 05/28/23 by Lucas Washington MD acetaminophen (Tylenol) 650 mg (2 x 325 mg) PO Q6H PRN albuterol sulfate 90 mcg/actuation 2 puffs inhalation Q6-8H PRN 30 days alclometasone 0.05% topical PRN desonide 0.05% 1 appl topical BID 30 days diphenhydramine HCl (Benadryl) 50 mg (2 x 25 mg) PO TID PRN dupilumab (Dupixent) 300 mg subcut Q4W epinephrine 0.3 mg (0.3 mL) IM Q15M PRN hydroxyzine HCl 25 mg PO QID PRN ibuprofen 600 mg PO Q8H PRN ketoconazole 2% 1 appl topical 2XW 14 days lidocaine 5% 1 patch topical DAILY loratadine 10 mg PO DAILY PRN metformin 500 mg PO DAILY 30 days tizanidine 4 mg PO Q8H PRN 30 days Tobacco use date assessed: 05/27/23 Dental Screening Dental Screen Date: 05/27/23 Did you have a dental visit in the last 12 months?: Yes Did you have a dental problem in the last 6 months where you did not have access to dental care?: No Was dental information given to patient?: Patient has dentist HPI sarcoidosis HPI Details Patient comes in today for her follow up visit States that she has been experiencing increased pain over her right knee lately and feels that right knee tends to buckle and give out on her when it flares up She does not recall any recent injury or trauma to her right knee States that she has not seen Pulmonary yet as her last appointment was canceled as Dr. Portillo was unavailable then and she has not yet been rescheduled States that she feels okay otherwise She denies any headaches or dizziness Denies any chest pains, no shortness of breath No nausea /vomiting, no abdominal pain No change in bowel habits noted Would like know how she did on her labs done a few months ago after her last visit [facility] Medical History Sarcoidosis Pure hypercholesterolemia Atopic dermatitis СВЕТЛАНА (obstructive sleep apnea) Chest pain Morbid obesity with BMI of 40.0-44.9, adult Panniculitis Obesity, morbid, BMI 40.0-49.9 Eczema Lumbar degenerative disc disease Allergic dermatitis COVID-19 Anemia Acute eczema Asthma Surgical History History of cholecystectomy S/P panniculectomy Gastric bypass status for obesity History of abdominal surgery H/O: hysterectomy (~11/20/14) Family History Family/Other Back problem Mother Diabetes Hypertension Hypercholesteremia Depression Brother Gallstones Daughter Asthma Maternal Uncle Cancer Maternal Uncle Throat cancer Maternal Grandmother Diabetes Maternal Grandfather Diabetes Paternal Grandmother Myocardial infarction Social History Housing: Apartment Are you a primary care professional to a significant other at home: No Do you presently have visiting nurse or other home services: No Alcohol intake: current Alcohol intake frequency: holidays/special occasions only Patient Tobacco Use Status: Never used Tobacco e-Cigarette/Vaping Use: Never Used Second Hand Smoke Exposure: Yes service: No Current occupational status: employed Cognitive needs: No Hearing needs: No Vision needs: Yes Questionnaire PHQ-9 Over the last 2 weeks, how often have you been bothered by any of the following problems? 1. Little interest or pleasure in doing things: not at all 2. Feeling down, depressed, or hopeless: not at all 3. Trouble falling or staying asleep, or sleeping too much: not at all 4. Feeling tired or having little energy: not at all 5. Poor appetite or overeating: not at all 6. Feeling bad about yourself - or that you are a failure or have let yourself or your family down: not at all 7. Trouble concentrating on things, such as reading the newspaper or watching television: not at all 8. Moving or speaking so slowly that other people could have noticed. Or the opposite - being so fidgety or restless that you have been moving around a lot more than usual: not at all 9. Thoughts that you would be better off or of hurting yourself in some way: not at all Total score: 0 Depression Screening Interpretation: Negative Depression Screening Done: Yes 95237 - PHQ-9 Billing: Yes Source: Developed by Drs. Neil Dodd, Karina Avalos, Steve Quevedo and colleagues, with an educational radha from [email or web address]. Thrive Questionnaire Date Thrive assessed: 05/27/23 I am a: Patient What is your living situation today?: I have a steady place to live Within the past 12 months, did the food you bought not last and you didn't have the money to get more?: Never true Within the past 12 months, did you worry whether your food would run out before you got money to buy more?: Never true Do you have trouble paying for medicines?: No Do you have trouble getting transportation to medical appointments?: No Do you have trouble paying your heating and electricity bill?: No Do you have trouble taking care of your child, family member or friend?: No Do you have trouble with day-to-day activities such as bathing, preparing meals, shopping, managing finances, etc.?: No Are you currently unemployed and looking for a job?: No Are you interested in more education?: No Please select the resources that you would like help with: None Currently or been in a relationship where the following occur: no concerns reported AUDIT C Alcohol Use Questionnaire (AUDIT-C) 1. How often do you have a drink containing alcohol?: Monthly or less 2. How many drinks containing alcohol do you have on a typical day when you are drinking?: 1 or 2 3. How often do you have six or more drinks on one occasion?: Never Total Score: 1 Score Reviewed/Action Taken: Yes CAITY-7 AMB Questionnaire CAITY-7 Date CAITY - 7 assessed: 05/27/23 Feeling nervous, anxious, or on edge: 0 = Not at all Not being able to stop or control worryin = Not at all Worrying too much about different things: 0 = Not at all Trouble relaxin = Not at all Being so restless that it is hard to sit still: 0 = Not at all Becoming easily annoyed or irritable: 0 = Not at all Feeling afraid as if something awful might happen: 0 = Not at all Total CAITY-7 score (0-4 normal; 5-9 mild; 10-14 moderate; 15-21 severe): 0 Source: Developed by Drs. Neil Dodd, Karina Avalos, Steve Quevedo and colleagues, with an educational radha from [email or web address]. Review of Systems Const Denies chills, Reports fatigue, Denies fever(s) and Denies headache(s) ENT Denies dysphagia, Denies dizziness, Denies otalgia, Denies headache(s), Denies odynophagia and Denies sore throat Card Denies chest pain, Denies palpitations and Denies dyspnea Resp Denies cough and Denies dyspnea GI Denies abdominal pain, Denies constipation, Denies dysphagia, Denies heartburn, Denies diarrhea, Denies nausea, Denies odynophagia and Denies vomiting Denies nocturia and Denies dysuria Musc Reports back pain (recurrent; increasing lately) and Reports arthralgias (on and off involving multiple joints; increased right knee pain lately) Skin/Breast Denies rash Neuro Denies dizziness and Denies headache(s) Endo Reports fatigue and Denies palpitations Physical exam (Primary Care) Vital Signs: Last Vital Signs Pulse 77 05/27/23 12:20 BP 132/90 H 05/27/23 12:20 Pulse Ox 95 05/27/23 12:20 Oxygen Delivery Method Room Air 05/27/23 12:20 BMI result Body Mass Index 45.2 Tobacco/Smoking Status: Tobacco use Status Tobacco use date assessed 05/27/23 05/27/23 12:22 Patient Tobacco Use Status Never used Tobacco 05/27/23 12:22 e-Cigarette/Vaping Use Never Used 05/27/23 12:22 PHQ-9: PHQ-9 Score PHQ-9: Total score 0 05/27/23 23:20 Depression Screening Interpretation: Negative Thrive Assessment: Date of Thrive Assessment Date Thrive assessed 05/27/23 05/27/23 12:22 Currently or been in a relationship where the following occur: no concerns reported Const General: no acute distress and alert HENMT Ears: TM's normal bilaterally and EAC's normal Throat: Yes posterior oropharynx normal and Yes tonsils normal (no TP congestion) Neck Neck: Yes no lymphadenopathy and Yes supple Resp Auscultation: clear to auscultation bilaterally, no rales and no wheezes Cardio Rate: regular rate Rhythm: regular rhythm Heart sounds: no murmurs GI Palpation (GI): Soft to palpation and nontender Auscultation: normal bowel sounds Back/Spine/Pelvis Cervical Spine: No Cervical spine tenderness Thoracic/Lumbar Spine: lumbar spinal tenderness Skin Rashes: no rashes Extrem General: Yes no clubbing, cyanosis or edema Right lower extremity: knee Details: tenderness; no swelling and foot Details: tenderness Location: of the great toe Location: at the MTP joint Results Reviewed Results Reviewed: Laboratory Tests 02/12/23 02/12/23 02/12/23 11:40 11:47 11:47 WBC 7.3 Hgb 13.2 Hct 39.9 Plt Count 346 ESR 22 H Sodium 137 Potassium 4.1 Creatinine 0.58 Estimated GFR > 60 Fasting Glucose 97 Hemoglobin A1c % 5.0 Calcium 9.2 Magnesium 2.2 AST 20 ALT 22 C-Reactive Protein 1.51 H Triglycerides 69 Cholesterol 185 LDL Cholesterol, Calc 124 HDL Cholesterol 48 Vitamin B12 337 25-OH Vitamin D Total 19.9 TSH 1.14 Ur Specific Hoffmeister 1.020 Urine Protein Negative Urine Glucose (UA) Negative Urine Blood Negative Microalb/Creat Ratio 8.0 Assessment and Plan Assessment & Plan (1) Pure hypercholesterolemia: Code(s): E78.00 - Pure hypercholesterolemia, unspecified Plan: Results of her labs done a few months ago reviewed and discussed with patient - advised that her cholesterol levels are still within normal limts on her recent labs Reinforced low cholesterol diet Her cholesterol level was significantly elevated back in 2009 but she has been able to get them improved since then with diet modification alone (2) Asthma: Code(s): J45.909 - Unspecified asthma, uncomplicated Qualifiers: Asthma severity: mild Asthma persistence: intermittent Asthma complication type: uncomplicated Qualified Code(s): J45.20 - Mild intermittent asthma, uncomplicated Plan: Stable - continue Albuterol HFA 2 inhalations every 6 hours as needed States that her asthma and eczema have both improved a lot with less flare ups since she was started on Dupixent a few months ago Continue Dupixent 300 mg inj SQ every 4 weeks (3) Lumbar degenerative disc disease: Code(s): M51.36 - Other intervertebral disc degeneration, lumbar region Plan: Reinforced activity and weight-lifting restrictions Lumbar spine MRI done in May 2020 revealed: 1. There are 4 nonrib-bearing lumbar-type vertebral bodies with sacralization of L5.? 2. L3-L4 mild broad-based disc bulge with a superimposed shallow right extraforaminal disc protrusion which contacts the exiting right L3 nerve root. Bilateral facet arthropathy and thickening of the ligamentum flavum causing minimal central canal as well as [id number] right and mild left neural foraminal stenosis. 3. L4-L5 broad-based disc bulge, slightly asymmetric to the right with posterior annular fissuring. This abuts the traversing right L5 nerve root within the lateral recess. Bilateral facet arthropathy with mild bilateral neural foraminal stenosis. Repeat lumbar spine x-rays done a few months ago revealed (+) mild spondylosis with findings similar to those seen on her MRI done a few years ago Follow up with Pain Management as scheduled (4) Neck pain: Code(s): M54.2 - Cervicalgia Plan: Currently improved - was most likely due to muscular strain Cervical spine x-rays done a few months ago came out normal (5) Sarcoidosis: Code(s): D86.9 - Sarcoidosis, unspecified Plan: Was advised by Dr. Comer a few months ago that the skin lesions they biopsied from her turned out to be sarcoid lesions and recommended that she see pulmonary for further evaluation and management of sarcoidosis Labs done a few months ago revealed elevated ESR and CRP; chest x-rays done revealed (+) prominence of the pulmonary hilum suggestive of of sarcoidosis She was referred to pulmonary for further evaluation and management but states that her original appointment scheduled in March [address] Portillo was not available at the time and she is still waiting to be rescheduled - have advised patient to call up the pulmonary office and tried to get a new appointment scheduled [place] (6) СВЕТЛАНА (obstructive sleep apnea): Code(s): G47.33 - Obstructive sleep apnea (adult) (pediatric) Plan: Continue using her CPAP device when sleeping at night daily Follow up with Sleep Medicine as scheduled (7) Atopic dermatitis: Code(s): L20.9 - Atopic dermatitis, unspecified Qualifiers: Atopic dermatitis type: unspecified Qualified Code(s): L20.9 - Atopic dermatitis, unspecified Plan: Stable - continue Desonide 0.05% cream BID PRN States that her eczema has improved significantly since she was started on Dupixent several weeks ago Follow up with dermatology as scheduled (8) Macromastia: Code(s): N62 - Hypertrophy of breast Plan: She was previously referred for consideration for breast reduction surgery but has reportedly been advised that she will only be able to undergo breast reduction surgery IF she is able to lose at least 10 pounds, which she is still struggling with - she has lost only about 3 pounds since her last visit Per request, she was referred to another plastic surgeon for consideration for reduction mammoplasty and panniculectomy at her last visit but states that she has not yet heard back from them regarding scheduling an appointment (9) Obesity, morbid, BMI 40.0-49.9: Comment: 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 08/02/2019 Code(s): E66.01 - Morbid (severe) obesity due to excess calories Plan: Reinforced diet/exercise as tolerated/lose weight Has been referred to weight management here at [facility] for further evaluation and to explore other aspects as patient seems to have failed bariatric surgery - has reportedly not lost much weight despite her gastric bypass surgery and subsequent conversion surgery She was previously tried on some Metformin 500 mg QD (best taken about an hour before her lunch) to see if this will help her lose some weight (by curbing her appetite); states that she has not lost much so far She was trialed again on Metformin at her last visit with similar results - has lost only about 3 pounds over the past few months Will refer her back to Weight Management to see if there is anything else they can recommend or offer her at this time to help with weight loss Plan Follow up in 4 months Orders: Orders XR knee RT 4V 05/27/23 M25.561 - Pain in right knee Referrals Medical Weight Management Referral E66.01 - Morbid (severe) obesity due to excess calories Coding Level of Care Code Est Pt Level 4 (14390) Diagnoses Pure hypercholesterolemia E78.00 Mild intermittent asthma without complication J45.20 Asthma severity: mild Asthma persistence: intermittent Asthma complication type: uncomplicated Lumbar degenerative disc disease M51.36 Neck pain M54.2 Sarcoidosis D86.9 СВЕТЛАНА (obstructive sleep apnea) G47.33 Atopic dermatitis, unspecified type L20.9 Atopic dermatitis type: unspecified Macromastia N62 Obesity, morbid, BMI 40.0-49.9 E66.01
== END 2023-05-27 12:53 | disposition home or self-care (01) ==
PROVIDERS: PCP Internal Medicine; Visit Provider Internal Medicine
DX: E78.00 Pure hypercholesterolemia, unspecified (principal); J45.20 Mild intermittent asthma, uncomplicated; E66.01 Morbid (severe) obesity due to excess calories; Z68.42 Body mass index [BMI] 45.0-49.9, adult; M51.36 Other intervertebral disc degeneration, lumbar region; M54.2 Cervicalgia; D86.9 Sarcoidosis, unspecified; G47.33 Obstructive sleep apnea (adult) (pediatric); L20.9 Atopic dermatitis, unspecified; N62 Hypertrophy of breast
CPT/HCPCS: 99214

== ENCOUNTER 2023-07-23 15:20 | Outpatient (REF) | payer OTHER, SELFPAY ==
[2023-07-23 15:32] LABS: MANUAL DIFF FLAG NO
[2023-07-23 15:57] LABS: Basophils Percent Auto 0.5 % (0-2); Eosinophils Absolute Auto 0.4 X10*3/uL (0.0-0.4); Eosinophils Percent Auto 6.1 % (0-4); Hematocrit 39.9 % (37.0-47.0); Hemoglobin 13.4 g/dl (12.0-16.0); Imm Gran Abs Auto 0.01 X10*3/uL (0.00-0.03); Imm Gran Pct Auto 0.2 % (0.0-0.4); Lymphocytes Absolute Auto 1.4 X10*3/uL (1.2-4.9); Lymphocytes Percent Auto 21.9 % (20-40); Mean Corpuscular HGB Conc 33.6 g/dl (31.0-35.0); Mean Corpuscular Hemoglobin 29.6 pg (27.0-33.0); Mean Corpuscular Volume 88.3 fL (80.0-98.0); Mean Platelet Volume 10.5 fL (9.4-12.3); Monocytes Absolute Auto 0.8 X10*3/uL (0.1-1.2); Monocytes Percent Auto 13.2 % (2-11); Neutrophils Absolute Auto 3.7 x10*3/uL (2.0-8.3); Neutrophils Percent Auto 58.1 % (45-73); Platelet Count 353 X10*3/uL (160-400); Red Blood Count 4.52 X10*6/uL (4.20-5.50); Red Cell Distribution Width 13.5 % (11.0-16.0); White Blood Count 6.3 X10*3/uL (4.8-10.8)
[2023-07-23 17:59] LABS: Appearance Urine Cloudy; Color Urine Yellow; Glucose Urine UA Negative (Negative); Leukocyte Esterase Urine Trace (Negative); Nitrite Urine Negative (Negative); PH 5.5 (5.0-9.0); Specific Gravity - Urine >= 1.030 (1.005-1.025); UMIC TRIGGER UACC YES; Urine Blood Negative (Negative); Urine Ketones Trace mg/dL (Negative); Urine Protein Trace mg/dL (Neg-Trace)
[2023-07-23 18:21] LABS: Bacteria Urine 4+ (None Seen); Hyaline Casts Urine 0-2 /LPF (0-2); UACC Culture Trigger YES; WBC Urine 21-50 /HPF (0-5)
[2023-07-23 18:22] LABS: Albumin Level 3.7 g/dL (3.5-5.0); Alkaline Phosphatase 77 U/L (39-117); Anion Gap 10 (12-20); Bilirubin Total 0.3 mg/dL (0.0-1.0); Calcium 9.1 mg/dL (8.4-10.2); Carbon Dioxide 25 mmol/L (22-29); Chloride 109 mmol/L (96-108); Estimated Glomerular Filt Rate > 60; Glucose Fasting 86 mg/dL (60-99); Potassium 3.6 mmol/L (3.3-5.1); Sodium 140 mmol/L (135-145); Total Protein 7.3 g/dL (6.5-8.0); Triglycerides 127 mg/dL (<150)
[2023-07-23 18:35] LABS: Alanine Aminotransferase 42 U/L (0-31); Aspartate Amino Transferase 35 U/L (5-31); Blood Urea Nitrogen 12 mg/dL (9-16); Cholesterol 141 mg/dL (<200); HDL Cholesterol 37 mg/dL (>40); LDL Cholesterol Calculated 79 mg/dL (<100); TSH reflex Free T4 0.71 uIU/mL (0.32-4.0); Vitamin D 25-OH Total 9.8 ng/mL (>30)
== END 2023-07-23 15:21 | disposition home or self-care (01) ==
LOC: HO.LAB 15:20
PROVIDERS: PCP Internal Medicine; Visit Provider Internal Medicine
DX: Z00.00 Encounter for general adult medical examination without abnormal findings (principal); E78.00 Pure hypercholesterolemia, unspecified; E55.9 Vitamin D deficiency, unspecified
CPT/HCPCS: 36415; 80053; 80061; 81001; 82306; 84443; 85025; 87086; 87088; 87186

== ENCOUNTER 2023-08-17 14:14 | Outpatient (AMB) | payer OTHER, SELFPAY ==
--- NOTE | 2023-08-17 14:21 | A.OFFVIS_ITS ---
Intake Vital Signs 08/17/23 14:23 Height 5 ft 3 in Weight 210 lb BMI 37.2 Pulse 81 Pulse Source Pulse Oximeter Pulse Oximetry (%) 99 Oxygen Delivery Method Room Air Intake Visit Reasons: sarcoidosis Senior Clinical Study Manager Required: No Allergies Sulfa (Sulfonamide Antibiotics) Allergy (Unknown, Verified 08/17/23 14:24) hives SEASONAL ALLERGIES Allergy (Unknown, Uncoded 08/17/23 14:24) RUNNY NOSE - ITCHY EYES HPI HPI Comments History of Present Illness Details The patient is a 43-year-old woman with a known history of seasonal allergies and also ectopic dermatitis who apparently has been developing increasing daytime drowsiness. The patient does have episodes where she wakes up suddenly from sleep with shortness of breath and tachycardia. These episodes have been happening more often. The patient has an elevated EPWORTH score of 11/24. she did undergo home sleep study demonstrating an AHI of 10 events per hour. During the home study the patient also had episodes of tachycardia with the maximum heart rate of 113 in addition to decreasing her oxygen down to 81%. The patient does have significant symptoms of daytime drowsiness. The patient needs to start PAP therapy at this time. Will make arrangements for her to do so. In the meantime she also carries a diagnosis of asthma. She does have a short-acting beta agonist but she has not used it. It is likely the fact that she is on Dupixent for her ectopic dermatitis that is also helping her asthma symptoms. She does describe having chest pain intermittently on the left side. Currently it is not present. We will start a CXR. 08/17/2023 the patient is here for a new e valuation. The patient had been evaluated before for sleep apnea. She did have a positive sleep study and we did request she start CPAP but she was never called apparently and therefore never started CPAP therapy. The issue now is that she started developing a rash around the areas where she has tattoos. She did follow-up with Dermatology. She had a biopsy which demonstrated granulomas suggesting of sarcoidosis. The patient did have his x-rays of the chest sometime in February 2023 which I personally by me demonstrating prominence of the hilum suggesting all lymphadenopathy consistent with sarcoidosis. Could not really appreciate any interstitial lung disease. The patient ultimately started having issues with her eyesight. Currently is waiting to see an eye doctor. She also complains of asthma like symptoms she does have a rescue inhaler that she uses at times. But typically about 2 times week. She has been using it more often lately however. Explained to her that the diagnosed sarcoidosis can be multiorgan. She did have blood work done it she did have some slight elevations of the LFTs. Otherwise kidney functions normal. Her vitamin-D level is a little low. Will plan to get additional workup specially looking for other connective tissue conditions. Also be important to check an Iftikhar level to see if the activity can help us assess sarcoid activity. Will have to do PFTs also CT scan of the chest to follow-up the abnormal chest x-ray. Once the patient undergoes all these studies will have to review them together. The patient may be a good candidate for treatment of her sarcoidosis. However, will wait for the results as 1st. Regards the sleep apnea she continues have daytime drowsiness. Her Roberts score is indeed elevated 05/04. But at this time will will go ahead and just assess the sarcoid activity and then follow-up with that in the near future. [facility] Medical History (Updated 08/17/23 @ 14:40 by Dax Portillo MD) New abnormality on chest x-ray Sarcoidosis Pure hypercholesterolemia Atopic dermatitis СВЕТЛАНА (obstructive sleep apnea) Chest pain Morbid obesity with BMI of 40.0-44.9, adult Panniculitis Obesity, morbid, BMI 40.0-49.9 Eczema Lumbar degenerative disc disease Allergic dermatitis COVID-19 Anemia Acute eczema Asthma Surgical History History of cholecystectomy S/P panniculectomy Gastric bypass status for obesity History of abdominal surgery H/O: hysterectomy (~11/20/14) Family History Family/Other Back problem Mother Diabetes Hypertension Hypercholesteremia Depression Brother Gallstones Daughter Asthma Maternal Uncle Cancer Maternal Uncle Throat cancer Maternal Grandmother Diabetes Maternal Grandfather Diabetes Paternal Grandmother Myocardial infarction Social History Housing: Apartment Are you a primary patient care coordinator to a significant other at home: No Do you presently have visiting nurse or other home services: No Alcohol intake: current Alcohol intake frequency: holidays/special occasions only Patient Tobacco Use Status: Never used Tobacco e-Cigarette/Vaping Use: Never Used Second Hand Smoke Exposure: Yes service: No Current occupational status: employed Cognitive needs: No Hearing needs: No Vision needs: Yes Review of Systems Const Reports daytime sleepiness, Reports difficulty sleeping and Reports weight gain Eyes Reports change in vision ENT Denies change in voice, Reports nasal congestion and Reports nasal discharge Card Denies chest pain and Reports dyspnea on exertion Resp Reports cough, Reports dyspnea on exertion and Reports wheezing GI Denies abdominal pain Musc Reports no additional complaints Skin/Breast Reports lesions and Reports rash Neuro Reports no additional complaints Torey/Lymph Denies easy bruising and Denies lymphadenopathy Aller/Immun Reports wheezing Physical Exam Vital Signs: Last Vital Signs Pulse 81 08/17/23 14:23 Pulse Ox 99 08/17/23 14:23 Oxygen Delivery Method Room Air 08/17/23 14:23 BMI result Body Mass Index 37.2 Const General: alert HEENT Head: Yes normocephalic Neck Neck: Yes supple Chest Chest palpation & inspection: normal inspection of the chest Resp Effort & Inspection: normal respiratory effort Auscultation: diminished lung sounds Cardio Rate: regular rate Rhythm: regular rhythm Heart sounds: S1 normal heart sound present and S2 normal heart sound present GI Palpation (GI): Soft to palpation and nontender Auscultation: normal bowel sounds Skin Lesions: lesion noted Extrem General: Yes edema Results Reviewed Results Reviewed: personally reviewed CXR 03/03 with hilar prominence Assessment & Plan Assessment & Plan (1) Asthma: Code(s): J45.909 - Unspecified asthma, uncomplicated Qualifiers: Asthma complication type: uncomplicated Asthma persistence: intermittent Asthma severity: mild Qualified Code(s): J45.20 - Mild intermittent asthma, uncomplicated (2) СВЕТЛАНА (obstructive sleep apnea): Code(s): G47.33 - Obstructive sleep apnea (adult) (pediatric) (3) Sarcoidosis: Code(s): D86.9 - Sarcoidosis, unspecified (4) New abnormality on chest x-ray: Code(s): R93.89 - Abnormal findings on diagnostic imaging of other specified body structures Plan Bloodwork CT chest PFTs start Symbicort JACKIE as needed likely have to repeat PSG in the near future eye exam to r/o uveitis If any evidence of active sarcoid affecting multiple organs will benefit from systemic therapy F/U 6-8 weeks Orders: Orders Angiotensin Converting Enzyme Today D86.9 - Sarcoidosis, unspecified Immunoglobulin E Today D86.9 - Sarcoidosis, unspecified CT chest wo IV con Today D86.9 - Sarcoidosis, unspecified, R93.89 - Abnormal findings on diagnostic imaging of other specified body structures Liver Panel Today D86.9 - Sarcoidosis, unspecified Anti DNA DS Antibody Today D86.9 - Sarcoidosis, unspecified ARIES Reflex Titer and Pattern Today D86.9 - Sarcoidosis, unspecified Cyclic Citrullinated Peptide Today D86.9 - Sarcoidosis, unspecified PFT pulmonary function test Today D86.9 - Sarcoidosis, unspecified, R93.89 - Abnormal findings on diagnostic imaging of other specified body structures Medications: New budesonide-formoterol 160-4.5 mcg/actuation (Symbicort) 2 puffs inhalation BID 30 days 10.2 grams 11RF J44.89 - Other specified chronic obstructive pulmonary disease Coding Level of Care Code Est Pt Level 5 (15328) Diagnoses Mild intermittent asthma without complication J45.20 Asthma complication type: uncomplicated Asthma persistence: intermittent Asthma severity: mild СВЕТЛАНА (obstructive sleep apnea) G47.33 Sarcoidosis D86.9 New abnormality on chest x-ray R93.89 Time Spent (min) 40
[2023-08-17 14:23] VITALS: PULSE 81; O2SAT 99; BMI 37.2
== END 2023-08-17 14:44 | disposition home or self-care (01) ==
PROVIDERS: PCP Internal Medicine; Visit Provider Hospitalist
DX: D86.9 Sarcoidosis, unspecified (principal); J45.20 Mild intermittent asthma, uncomplicated; G47.33 Obstructive sleep apnea (adult) (pediatric); R93.89 Abnormal findings on diagnostic imaging of other specified body structures
CPT/HCPCS: 99215

== ENCOUNTER 2023-08-17 14:14 | Outpatient (REF) | payer OTHER, SELFPAY ==
[2023-08-17 15:32] LABS: Appearance Urine Clear; Color Urine Yellow; Glucose Urine UA Negative (Negative); Leukocyte Esterase Urine Negative (Negative); Nitrite Urine Negative (Negative); Specific Gravity - Urine 1.025 (1.005-1.025); Urine Blood Negative (Negative); Urine Ketones Negative (Negative); Urine Protein Negative (Neg-Trace)
[2023-08-17 16:06] LABS: Alanine Aminotransferase 29 U/L (0-31); Albumin Level 3.9 g/dL (3.5-5.0); Alkaline Phosphatase 76 U/L (39-117); Aspartate Amino Transferase 26 U/L (5-31); Bilirubin Direct 0.2 mg/dL (0.0-0.5); Bilirubin Total 0.4 mg/dL (0.0-1.0); Total Protein 7.5 g/dL (6.5-8.0)
[2023-08-18 18:33] LABS: Anti DNA DS Antibody 1 IU/mL
[2023-08-18 18:58] LABS: Immunoglobulin E 145 kU/L (<OR=114)
[2023-08-19 14:38] LABS: Cyclic Citrullinated Peptide <16 UNITS
[2023-08-22 05:19] LABS: Angiotensin Converting Enzyme 38.1 U/L (9-67)
[2023-08-25 11:23] LABS: Anti Nuclear Antibody Pattern Mitotic, Centrosome; Anti Nuclear Antibody Screen POSITIVE (NEGATIVE)
== END 2023-08-17 14:15 | disposition home or self-care (01) ==
LOC: HO.LAB 14:14
PROVIDERS: PCP Internal Medicine; Visit Provider Hospitalist
DX: D86.9 Sarcoidosis, unspecified (principal); R30.0 Dysuria; J45.20 Mild intermittent asthma, uncomplicated; G47.33 Obstructive sleep apnea (adult) (pediatric); R93.89 Abnormal findings on diagnostic imaging of other specified body structures
CPT/HCPCS: 36415; 80076; 81003; 82164; 82785; 86038; 86039; 86200; 86225; 99212

== ENCOUNTER 2023-09-24 13:47 | Outpatient (REF) | payer OTHER, SELFPAY ==
--- NOTE | ~2023-09-24 | CT_ITS ---
EXAMINATION: CT CHEST WITHOUT CONTRAST CLINICAL INFORMATION: Sarcoidosis COMPARISON: Chest x-ray 02/12/2023 TECHNIQUE: Multidetector volumetric CT imaging of the chest was done. Axial MIP volume rendering provided. Sagittal and coronal reformatted images were obtained. This CT examination was performed using dose optimization techniques as appropriate, variously including the following: *Automated exposure control *Adjustment of mA and/or kV according to patient size (this includes techniques or standardized protocols for targeted exams where dose is matched to indication/reason for exam; i.e. extremities or head) *Use of iterative reconstruction technique DLP: 987 mGy-cm FINDINGS: Central airways are patent. Lungs are well aerated. There is no lobar consolidation present. No pleural effusion or pneumothorax. There are several bilateral pulmonary nodules noted, the largest appears to be a 7 mm left lower lobe pulmonary nodule (image 114/179, series 8). The heart is normal in size. There is no pericardial effusion. No appreciable coronary artery calcifications. Numerous enlarged mediastinal lymph nodes noted. Evaluation for hilar lymphadenopathy is suboptimal given lack of IV contrast, however, there is suspicion of underlying enlarged hilar lymph nodes bilaterally. No pathologically enlarged axillary lymph nodes. Partially visualized at least 2.8 cm right thyroid nodule. Normal caliber thoracic aorta. Visualized portions of the upper abdomen demonstrate surgical changes of the stomach which aren't clearly visualized. The gallbladder surgically absent. There is diffusely decreased attenuation of the liver. Mild diffuse degenerative changes of the spine. CT/CT chest wo IV con IMPRESSION: 1. Numerous enlarged mediastinal lymph nodes noted. Evaluation for hilar lymphadenopathy is suboptimal given lack of IV contrast, however, there is suspicion of underlying enlarged hilar lymph nodes bilaterally. 2. Several bilateral pulmonary nodules noted, the largest measuring 7 mm. 3. Partially visualized at least 2.8 cm right thyroid nodule. 4. Diffusely decreased liver attenuation suggesting hepatic steatosis. Correlation with liver enzymes recommended. According to the UPDATED 2017 Fleischner Society recommendations, the advised follow-up imaging for multiple solid nodules, the largest measuring 6 mm or greater, is: LOW RISK PATIENT: CT at 3-6 months, then consider CT at 18-24 months. HIGH RISK PATIENT: CT at 3-6 months, then at 18-24 months.
== END 2023-09-24 13:48 | disposition home or self-care (01) ==
LOC: HO.CT 13:47
PROVIDERS: PCP Internal Medicine; Visit Provider Hospitalist
DX: D86.9 Sarcoidosis, unspecified (principal); R93.89 Abnormal findings on diagnostic imaging of other specified body structures; J45.20 Mild intermittent asthma, uncomplicated; G47.33 Obstructive sleep apnea (adult) (pediatric)
CPT/HCPCS: 71250; 99212

== ENCOUNTER 2023-09-24 14:07 | Outpatient (AMB) | payer OTHER, SELFPAY ==
--- NOTE | 2023-09-24 14:14 | MHC.OFFVIS ---
Intake Vital Signs 09/24/23 14:15 Height 5 ft 3 in Weight 205 lb BMI 36.3 Pulse 83 Pulse Source Pulse Oximeter Pulse Oximetry (%) 98 Oxygen Delivery Method Room Air Intake Visit Reasons: sarcoidosis Extractions Technologist Required: No Allergies Sulfa (Sulfonamide Antibiotics) Allergy (Unknown, Verified 09/24/23 14:16) hives SEASONAL ALLERGIES Allergy (Unknown, Uncoded 09/24/23 14:16) RUNNY NOSE - ITCHY EYES HPI HPI Comments History of Present Illness Details The patient is a 43-year-old woman with a known history of seasonal allergies and also ectopic dermatitis who apparently has been developing increasing daytime drowsiness. The patient does have episodes where she wakes up suddenly from sleep with shortness of breath and tachycardia. These episodes have been happening more often. The patient has an elevated EPWORTH score of 11/24. she did undergo home sleep study demonstrating an AHI of 10 events per hour. During the home study the patient also had episodes of tachycardia with the maximum heart rate of 113 in addition to decreasing her oxygen down to 81%. The patient does have significant symptoms of daytime drowsiness. The patient needs to start PAP therapy at this time. Will make arrangements for her to do so. In the meantime she also carries a diagnosis of asthma. She does have a short-acting beta agonist but she has not used it. It is likely the fact that she is on Dupixent for her ectopic dermatitis that is also helping her asthma symptoms. She does describe having chest pain intermittently on the left side. Currently it is not present. We will start a CXR. 08/17/2023 the patient is here for a new evaluation. The patient had been evaluated before for sleep apnea. She did have a positive sleep study and we did request she start CPAP but she was never called apparently and therefore never started CPAP therapy. The issue now is that she started developing a rash around the areas where she has tattoos. She did follow-up with Dermatology. She had a biopsy which demonstrated granulomas suggesting of sarcoidosis. The patient did have his x-rays of the chest sometime in February 2023 which I personally by me demonstrating prominence of the hilum suggesting all lymphadenopathy consistent with sarcoidosis. Could not really appreciate any interstitial lung disease. The patient ultimately started having issues with her eyesight. Currently is waiting to see an eye doctor. She also complains of asthma like symptoms she does have a rescue inhaler that she uses at times. But typically about 2 times week. She has been using it more often lately however. Explained to her that the diagnosed sarcoidosis can be multiorgan. She did have blood work done it she did have some slight elevations of the LFTs. Otherwise kidney functions normal. Her vitamin-D level is a little low. Will plan to get additional workup specially looking for other connective tissue conditions. Also be important to check an Iftikhar level to see if the activity can help us assess sarcoid activity. Will have to do PFTs also CT scan of the chest to follow-up the abnormal chest x-ray. Once the patient undergoes all these studies will have to review them together. The patient may be a good candidate for treatment of her sarcoidosis. However, will wait for the results as 1st. Regards the sleep apnea she continues have daytime drowsiness. Her [place] score is indeed elevated 05/04. But at this time will will go ahead and just assess the sarcoid activity and then follow-up with that in the near future. 09/24/2023 the patient is here for pulmonary follow-up visit. Overall she is doing well from a respiratory status. She is having some visual changes and will be following up with her presser automatic soon. She will make sure to let them know that she has sarcoidosis as a diagnosis. In meantime we did review her blood work. She did have positive ARIES x2 although there both low titers. Continue to monitor those laboratories closely. In addition to that she did have a CT scan of the chest were personally reviewed. Does some degree lymphadenopathy and pulmonary nodules. The actual CT scan has not been officially read. Therefore, if any other changes I will let her know. Other laboratories from July demonstrates normal renal function normal calcium and normal liver function studies. She does not have any respiratory symptoms this time so therefore systemic therapy is not warranted. Will continue to monitor for any end-organ disease. [facility] Medical History (Updated 08/17/23 @ 14:40 by Dax Portillo MD) New abnormality on chest x-ray Sarcoidosis Pure hypercholesterolemia Atopic dermatitis СВЕТЛАНА (obstructive sleep apnea) Chest pain Morbid obesity with BMI of 40.0-44.9, adult Panniculitis Obesity, morbid, BMI 40.0-49.9 Eczema Lumbar degenerative disc disease Allergic dermatitis COVID-19 Anemia Acute eczema Asthma Surgical History History of cholecystectomy S/P panniculectomy Gastric bypass status for obesity History of abdominal surgery H/O: hysterectomy (~11/20/14) Family History Family/Other Back problem Mother Diabetes Hypertension Hypercholesteremia Depression Brother Gallstones Daughter Asthma Maternal Uncle Cancer Maternal Uncle Throat cancer Maternal Grandmother Diabetes Maternal Grandfather Diabetes Paternal Grandmother Myocardial infarction Social History Housing: Apartment Are you a primary weekend caregiver to a significant other at home: No Do you presently have visiting nurse or other home services: No Alcohol intake: current Alcohol intake frequency: holidays/special occasions only Patient Tobacco Use Status: Never used Tobacco e-Cigarette/Vaping Use: Never Used Second Hand Smoke Exposure: Yes service: No Current occupational status: employed Cognitive needs: No Hearing needs: No Vision needs: Yes Review of Systems Const Reports daytime sleepiness, Reports difficulty sleeping and Reports weight gain Eyes Reports change in vision ENT Denies change in voice, Reports nasal congestion and Reports nasal discharge Card Denies chest pain and Reports dyspnea on exertion Resp Reports cough, Reports dyspnea on exertion and Reports wheezing GI Denies abdominal pain Musc Reports no additional complaints Skin/Breast Reports lesions and Reports rash Neuro Reports no additional complaints Torey/Lymph Denies easy bruising and Denies lymphadenopathy Aller/Immun Reports wheezing Physical Exam Vital Signs: Last Vital Signs Pulse 83 09/24/23 14:15 Pulse Ox 98 09/24/23 14:15 Oxygen Delivery Method Room Air 09/24/23 14:15 BMI result Body Mass Index 36.3 Const General: alert HEENT Head: Yes normocephalic Neck Neck: Yes supple Chest Chest palpation & inspection: normal inspection of the chest Resp Effort & Inspection: normal respiratory effort Auscultation: diminished lung sounds Cardio Rate: regular rate Rhythm: regular rhythm Heart sounds: S1 normal heart sound present and S2 normal heart sound present GI Palpation (GI): Soft to palpation and nontender Auscultation: normal bowel sounds Skin Lesions: lesion noted Extrem General: Yes edema Assessment & Plan Assessment & Plan (1) Asthma: Code(s): J45.909 - Unspecified asthma, uncomplicated Qualifiers: Asthma complication type: uncomplicated Asthma persistence: intermittent Asthma severity: mild Qualified Code(s): J45.20 - Mild intermittent asthma, uncomplicated (2) СВЕТЛАНА (obstructive sleep apnea): Code(s): G47.33 - Obstructive sleep apnea (adult) (pediatric) (3) Sarcoidosis: Code(s): D86.9 - Sarcoidosis, unspecified Plan Continue Symbicort JACKIE as needed likely have to repeat PSG in the near future eye exam to r/o uveitis If any evidence of active sarcoid affecting multiple organs will benefit from systemic therapy F/U 4 months, needs to reschedule PFTs Coding Level of Care Code Est Pt Level 4 (79626) Diagnoses Mild intermittent asthma without complication J45.20 Asthma complication type: uncomplicated Asthma persistence: intermittent Asthma severity: mild СВЕТЛАНА (obstructive sleep apnea) G47.33 Sarcoidosis D86.9 Time Spent (min) 17
[2023-09-24 14:15] VITALS: PULSE 83; O2SAT 98; BMI 36.3
== END 2023-09-24 14:41 | disposition home or self-care (01) ==
PROVIDERS: PCP Internal Medicine; Visit Provider Hospitalist
DX: J45.20 Mild intermittent asthma, uncomplicated (principal); G47.33 Obstructive sleep apnea (adult) (pediatric); D86.9 Sarcoidosis, unspecified
CPT/HCPCS: 99214

== ENCOUNTER 2023-11-12 14:43 | Outpatient (REF) | payer OTHER, SELFPAY ==
[2023-11-12 15:54] VITALS: PULSE 76; RESP 16; O2SAT 100
--- NOTE | 2023-11-12 16:33 | PFT_ITS ---
Flows: FEV1: 102 % of predicted at 3.09 L FVC: 95 % of predicted at 3.56 L FEV1/FVC: 87 % Bronchodilator response: Absent Volumes: Total lung capacity: 85 % of predicted at 4.62 L Residual volume: 78 % of predicted at 1.10 L Slow vital capacity: 88 % of predicted at 3.52 L Expiratory reserve volume: 38 % of predicted at 0.46 L Diffusion capacity: Normal Impression: No obstructive or restrictive ventilatory defect. No bronchodilator response. Decreased expiratory reserve volume suggests extrathoracic restriction likely secondary to abdominal obesity. MTDD
== END 2023-11-12 14:44 | disposition home or self-care (01) ==
LOC: HO.RESP 14:43
PROVIDERS: PCP Internal Medicine; Visit Provider Hospitalist
DX: D86.9 Sarcoidosis, unspecified (principal); R93.89 Abnormal findings on diagnostic imaging of other specified body structures
CPT/HCPCS: 94010; 94640; 94727; 94729

== ENCOUNTER → 2023-11-12 16:33 | Outpatient (BNV) | payer OTHER, SELFPAY | PROVIDERS: PCP Internal Medicine; Visit Provider Internal Medicine Pulmonary Disease | DX: D86.9 Sarcoidosis, unspecified (principal); R93.89 Abnormal findings on diagnostic imaging of other specified body structures | CPT/HCPCS: 94060; 94727; 94729 ==

== ENCOUNTER 2023-11-17 15:53 | Outpatient (AMB) | payer OTHER, SELFPAY ==
[2023-11-17 15:55] VITALS: BP 130/72; PULSE 82; O2SAT 97; BMI 45.2
--- NOTE | 2023-11-17 15:55 | A.OFFPC_ITS ---
Vital Signs 11/17/23 15:55 Height 5 ft 3 in Weight 255 lb BMI 45.2 BP 130/72 Blood Pressure Location Lt brachial Position Sitting Pulse 82 Pulse Source Pulse Oximeter Pulse Oximetry (%) 97 Oxygen Delivery Method Room Air Intake Visit Reasons: follow up Child Adolescent Psychiatrist Required: No Allergies Sulfa (Sulfonamide Antibiotics) Allergy (Unknown, Verified 11/22/23 08:57) hives SEASONAL ALLERGIES Allergy (Unknown, Uncoded 11/22/23 08:57) RUNNY NOSE - ITCHY EYES Medication List - Last Reconciled 11/22/23 by Lucas Washington MD acetaminophen (Tylenol) 650 mg (2 x 325 mg) PO Q6H PRN albuterol sulfate 90 mcg/actuation 2 puffs inhalation Q6-8H PRN 30 days alclometasone 0.05% topical PRN budesonide-formoterol 160-4.5 mcg/actuation (Symbicort) 2 puffs inhalation BID 30 days cholecalciferol (vitamin D3) 50 mcg PO DAILY 90 days desonide 0.05% 1 appl topical BID 30 days diphenhydramine HCl (Benadryl) 50 mg (2 x 25 mg) PO TID PRN dupilumab (Dupixent) 300 mg subcut Q4W epinephrine 0.3 mg (0.3 mL) IM Q15M PRN hydroxyzine HCl 25 mg PO QID PRN ketoconazole 2% 1 appl topical 2XW 14 days loratadine 10 mg PO DAILY PRN semaglutide (weight loss) (Wegovy) 0.25 mg (0.5 mL) subcut QWEEK tizanidine 4 mg PO Q8H PRN 30 days Tobacco use date assessed: 05/27/23 Dental Screening Dental Screen Date: 11/17/23 Did you have a dental visit in the last 12 months?: Yes Did you have a dental problem in the last 6 months where you did not have access to dental care?: No Was dental information given to patient?: Patient has dentist HPI follow up HPI Details Patient comes in today for her follow up visit States that she currently feels okay Is now following up with [facility] for her sarcoidosis, which appears to be stable based on her recent work ups States that her breathing is well-controlled on her current inhalers and she's had no acute issues with her breathing lately She denies any headaches or dizziness Denies any chest pains, no SOB No nausea/vomiting, no abdominal pain No change in bowel habits noted States that she has failed bariatric surgery and continues to struggle with her weight (has gained more weight since her last visit) and is wondering if she would be a candidate for the new GLP-1 weight loss medications [facility], [facility] Medical History (Updated 11/22/23 @ 09:07 by Lucas Washington MD) New abnormality on chest x-ray Sarcoidosis Pure hypercholesterolemia Atopic dermatitis СВЕТЛАНА (obstructive sleep apnea) Morbid obesity with BMI of 40.0-44.9, adult Panniculitis Eczema Lumbar degenerative disc disease Allergic dermatitis COVID-19 Anemia Asthma Surgical History Hx of gastric bypass History of cholecystectomy S/P panniculectomy Gastric bypass status for obesity History of abdominal surgery H/O: hysterectomy (~11/20/14) Family History Family/Other Back problem Mother Diabetes Hypertension Hypercholesteremia Depression Brother Gallstones Daughter Asthma Maternal Uncle Cancer Maternal Uncle Throat cancer Maternal Grandmother Diabetes Maternal Grandfather Diabetes Paternal Grandmother Myocardial infarction Social History Housing: Apartment Are you a primary geriatric care manager to a significant other at home: No Do you presently have visiting nurse or other home services: No Alcohol intake: current Alcohol intake frequency: holidays/special occasions only Patient Tobacco Use Status: Never used Tobacco e-Cigarette/Vaping Use: Never Used Second Hand Smoke Exposure: Yes service: No Current occupational status: employed Cognitive needs: No Hearing needs: No Vision needs: Yes Questionnaire PHQ-9 Over the last 2 weeks, how often have you been bothered by any of the following problems? 1. Little interest or pleasure in doing things: not at all 2. Feeling down, depressed, or hopeless: not at all 3. Trouble falling or staying asleep, or sleeping too much: not at all 4. Feeling tired or having little energy: not at all 5. Poor appetite or overeating: not at all 6. Feeling bad about yourself - or that you are a failure or have let yourself or your family down: not at all 7. Trouble concentrating on things, such as reading the newspaper or watching television: not at all 8. Moving or speaking so slowly that other people could have noticed. Or the opposite - being so fidgety or restless that you have been moving around a lot more than usual: not at all 9. Thoughts that you would be better off or of hurting yourself in some way: not at all Total score: 0 Depression Screening Interpretation: Negative Depression Screening Done: Yes 31032 - PHQ-9 Billing: Yes Source: Developed by Drs. Neil Dodd, Karina Avalos, Steve Quevedo and colleagues, with an educational radha from [employer]. Thrive Questionnaire Date Thrive assessed: 11/17/23 I am a: Patient What is your living situation today?: I have a steady place to live Within the past 12 months, did the food you bought not last and you didn't have the money to get more?: Never true Within the past 12 months, did you worry whether your food would run out before you got money to buy more?: Never true Do you have trouble paying for medicines?: No Do you have trouble getting transportation to medical appointments?: No Do you have trouble paying your heating and electricity bill?: No Do you have trouble taking care of your child, family member or friend?: No Do you have trouble with day-to-day activities such as bathing, preparing meals, shopping, managing finances, etc.?: No Are you currently unemployed and looking for a job?: No Are you interested in more education?: No Please select the resources that you would like help with: None Currently or been in a relationship where the following occur: no concerns reported THRIVE Score: 0 AUDIT C Alcohol Use Questionnaire (AUDIT-C) 1. How often do you have a drink containing alcohol?: Monthly or less 2. How many drinks containing alcohol do you have on a typical day when you are drinking?: 1 or 2 3. How often do you have six or more drinks on one occasion?: Never Total Score: 1 Score Reviewed/Action Taken: Yes CAITY-7 AMB Questionnaire CAITY-7 Date CAITY - 7 assessed: 05/27/23 Source: Developed by Drs. Neil Dodd, Karina Avalos, Steve Quevedo and colleagues, with an educational radha from [employer]. Review of Systems Const Denies chills, Reports fatigue, Denies fever(s), Denies headache(s) and Reports weight gain ENT Denies dysphagia, Denies dizziness, Denies otalgia, Denies headache(s), Denies neck pain, Denies odynophagia and Denies sore throat Card Denies chest pain, Denies palpitations and Denies dyspnea Resp Denies cough and Denies dyspnea GI Denies abdominal pain, Denies constipation, Denies dysphagia, Denies heartburn, Denies diarrhea, Denies nausea, Denies odynophagia and Denies vomiting Denies nocturia, Denies dysuria and Denies urinary urgency Musc Reports back pain (recurrent), Reports arthralgias (on and off involving multiple joints) and Denies neck pain Skin/Breast Denies rash Neuro Denies dizziness and Denies headache(s) Endo Reports fatigue and Denies palpitations Physical exam (Primary Care) Vital Signs: Last Vital Signs Pulse 82 11/17/23 15:55 BP 130/72 11/17/23 15:55 Pulse Ox 97 11/17/23 15:55 Oxygen Delivery Method Room Air 11/17/23 15:55 BMI result Body Mass Index 45.2 Tobacco/Smoking Status: Tobacco use Status Tobacco use date assessed 05/27/23 11/17/23 15:56 Patient Tobacco Use Status Never used Tobacco 11/17/23 15:56 e-Cigarette/Vaping Use Never Used 11/17/23 15:56 PHQ-9: PHQ-9 Score PHQ-9: Total score 0 11/17/23 16:34 Depression Screening Interpretation: Negative Thrive Assessment: Date of Thrive Assessment Date Thrive assessed 11/17/23 11/17/23 15:56 Currently or been in a relationship where the following occur: no concerns reported Const General: no acute distress and alert HENMT Ears: TM's normal bilaterally and EAC's normal Throat: Yes posterior oropharynx normal and Yes tonsils normal (no TP congestion) Neck Neck: Yes no lymphadenopathy and Yes supple Thyroid: Thyroid normal Resp Auscultation: clear to auscultation bilaterally, no rales and no wheezes Cardio Rate: regular rate Rhythm: regular rhythm Heart sounds: no murmurs GI Palpation (GI): Soft to palpation and nontender Auscultation: normal bowel sounds General: Yes no CVA tenderness Back/Spine/Pelvis Back: no CVA tenderness Cervical Spine: No Cervical spine tenderness Thoracic/Lumbar Spine: lumbar spinal tenderness (mild) Skin Rashes: no rashes Extrem General: Yes no clubbing, cyanosis or edema Right lower extremity: knee Details: tenderness; no swelling and foot Details: tenderness Location: of the great toe Location: at the MTP joint Results Reviewed Results Reviewed: Laboratory Tests 07/23/23 08/17/23 08/17/23 15:30 15:01 Unknown WBC 6.3 Hgb 13.4 Hct 39.9 Plt Count 353 Sodium 140 Potassium 3.6 Creatinine 0.58 Estimated GFR > 60 Fasting Glucose 86 Calcium 9.1 AST 26 ALT 29 Triglycerides 127 Cholesterol 141 LDL Cholesterol, Calc 79 HDL Cholesterol 37 L Angiotensin Convert Enz 38.1 25-OH Vitamin D Total 9.8 L TSH 0.71 Ur Specific [place] 1.025 Urine Protein Negative Urine Glucose (UA) Negative Urine Blood Negative Urine Nitrite Negative Ur Leukocyte Esterase Negative Assessment and Plan Assessment & Plan (1) Pure hypercholesterolemia: Code(s): E78.00 - Pure hypercholesterolemia, unspecified Plan: Results of her labs done a few months ago reviewed and discussed with patient - advised that her cholesterol levels are still within normal limts on her recent labs Reinforced low cholesterol diet Her cholesterol level was significantly elevated back in 2009 but she has been able to get them improved since then with diet modification alone Will recheck her labs in 4 months for follow up (2) Asthma: Code(s): J45.909 - Unspecified asthma, uncomplicated Qualifiers: Asthma severity: mild Asthma persistence: intermittent Asthma complication type: uncomplicated Qualified Code(s): J45.20 - Mild intermittent asthma, uncomplicated Plan: Stable/controlled Continue Symbicort 160-4.5 mcg 2 inhalations BID and Albuterol HFA 2 inhalations every 6 hours as needed States that her asthma and eczema have both improved a lot with less flare ups since she was started on Dupixent about 1 to 2 years ago - continue Dupixent 300 mg inj SQ every 4 weeks (3) Sarcoidosis: Code(s): D86.9 - Sarcoidosis, unspecified Plan: Currently appears stable Patient was initially advised by Dr. Demos a few months ago that the skin lesions they biopsied from her turned out to be sarcoid lesions and recommended that she see pulmonary for further evaluation and management of sarcoidosis Labs done a few months ago revealed elevated ESR and CRP; chest x-rays done revealed (+) prominence of the pulmonary hilum suggestive of of sarcoidosis She is now following up with [facility] regularly for her sarcoidosis (4) Lumbar degenerative disc disease: Code(s): M51.36 - Other intervertebral disc degeneration, lumbar region Plan: Reinforced activity and weight-lifting restrictions Lumbar spine MRI done in May 2020 revealed: 1. There are 4 nonrib-bearing lumbar-type vertebral bodies with sacralization of L5.? 2. L3-L4 mild broad-based disc bulge with a superimposed shallow right extraforaminal disc protrusion which contacts the exiting right L3 nerve root. Bilateral facet arthropathy and thickening of the ligamentum flavum causing minimal central canal as well as [id number] right and mild left neural foraminal stenosis. 3. L4-L5 broad-based disc bulge, slightly asymmetric to the right with posterior annular fissuring. This abuts the traversing right L5 nerve root within the lateral recess. Bilateral facet arthropathy with mild bilateral neural foraminal stenosis. Repeat lumbar spine x-rays done in May 2023 revealed (+) mild spondylosis with findings similar to those seen on her MRI done a few years ago Follow up with Pain Management as scheduled (5) СВЕТЛАНА (obstructive sleep apnea): Code(s): G47.33 - Obstructive sleep apnea (adult) (pediatric) Plan: Continue using her CPAP device when sleeping at night daily Follow up with Sleep Medicine as scheduled (6) Atopic dermatitis: Code(s): L20.9 - Atopic dermatitis, unspecified Qualifiers: Atopic dermatitis type: unspecified Qualified Code(s): L20.9 - Atopic dermatitis, unspecified Plan: Stable - continue Desonide 0.05% cream BID PRN States that her eczema has improved significantly since she was started on Dupixent several weeks ago Follow up with dermatology as scheduled (7) Macromastia: Code(s): N62 - Hypertrophy of breast Plan: She was previously referred for consideration for breast reduction surgery but has reportedly been advised that she will only be able to undergo breast reduction surgery IF she is able to lose at least 10 pounds, which she is still struggling with - she has lost only about 3 pounds since her last visit Per request, she was referred to another plastic surgeon for consideration for reduction mammoplasty and panniculectomy at her last visit - states that she is now scheduled to have these done sometime in the next few weeks (8) Obesity, morbid, BMI 40.0-49.9: Comment: 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 08/02/2019 Code(s): E66.01 - Morbid (severe) obesity due to excess calories Plan: Reinforced diet/exercise as tolerated/lose weight Has been referred to weight management here at [facility] for further evaluation and to explore other aspects as patient seems to have failed bariatric surgery - has reportedly not lost much weight despite her gastric bypass surgery and subsequent conversion surgery She was previously tried on some Metformin 500 mg QD (best taken about an hour before her lunch) to see if this will help her lose some weight (by curbing her appetite); states that she has not lost much so far She was trialed again on Metformin at her last visit with similar results - has lost only about 3 pounds over the past few months Per request, will now try her on Wegovy 0.25 mg SQ once a week - advised that this will still depend on whether her insurance will cover the Rx Plan Follow up in 4 months Orders: Orders Complete Blood Count Auto Diff 4 Months D64.9 - Anemia, unspecified Comprehensive [place]. Panel Fast 4 Months E78.00 - Pure hypercholesterolemia, unspecified Lipid Panel 4 Months E78.00 - Pure hypercholesterolemia, unspecified TSH reflex Free T4 4 Months E78.00 - Pure hypercholesterolemia, unspecified Vitamin D 25-OH Total 4 Months E55.9 - Vitamin D deficiency, unspecified UA CC w/rflx Micro + Cult 4 Months R30.0 - Dysuria Medications: New semaglutide (weight loss) (Wegovy) administer weeks 1 through 4 of therapy 0.25 mg (0.5 mL) subcut QWEEK 2 mL 0RF E66.01 - Morbid (severe) obesity due to excess calories, Z68.41 - Body mass index [BMI] 40.0-44.9, adult, Z98.84 - Bariatric surgery status cholecalciferol (vitamin D3) 50 mcg PO DAILY 90 days 90 caps 3RF E55.9 - Vitamin D deficiency, unspecified Coding Level of Care Code Est Pt Level 4 (79040) Diagnoses Pure hypercholesterolemia E78.00 Mild intermittent asthma without complication J45.20 Asthma severity: mild Asthma persistence: intermittent Asthma complication type: uncomplicated Sarcoidosis D86.9 Lumbar degenerative disc disease M51.36 СВЕТЛАНА (obstructive sleep apnea) G47.33 Atopic dermatitis, unspecified type L20.9 Atopic dermatitis type: unspecified Macromastia N62 Obesity, morbid, BMI 40.0-49.9 E66.01
== END 2023-11-17 16:48 | disposition home or self-care (01) ==
PROVIDERS: PCP Internal Medicine; Visit Provider Internal Medicine
DX: E78.00 Pure hypercholesterolemia, unspecified (principal); E66.01 Morbid (severe) obesity due to excess calories; Z68.41 Body mass index [BMI] 40.0-44.9, adult; J45.20 Mild intermittent asthma, uncomplicated; D86.9 Sarcoidosis, unspecified; M51.36 Other intervertebral disc degeneration, lumbar region; G47.33 Obstructive sleep apnea (adult) (pediatric); L20.9 Atopic dermatitis, unspecified; N62 Hypertrophy of breast
CPT/HCPCS: 99214

== ENCOUNTER 2023-12-30 14:09 | Outpatient (AMB) | payer OTHER, SELFPAY ==
--- NOTE | 2023-12-30 14:20 | A.OFFVIS_ITS ---
Vital Signs 12/30/23 14:21 Height 5 ft 3 in Weight 254 lb 13.67 oz BMI 45.1 Pulse 87 Pulse Source Pulse Oximeter Pulse Oximetry (%) 99 Oxygen Delivery Method Room Air Intake Visit Reasons: Sarcoidosis/PFT Follow Up Suction Roller Required: No Allergies Sulfa (Sulfonamide Antibiotics) Allergy (Unknown, Verified 12/30/23 14:22) hives SEASONAL ALLERGIES Allergy (Unknown, Uncoded 12/30/23 14:22) RUNNY NOSE - ITCHY EYES HPI Comments Details: The patient is a 43-year-old woman with a known history of seasonal allergies and also ectopic dermatitis who apparently has been developing increasing daytime drowsiness. The patient does have episodes where she wakes up suddenly from sleep with shortness of breath and tachycardia. These episodes have been happening more often. The patient has an elevated EPWORTH score of 11/24. she did undergo home sleep study demonstrating an AHI of 10 events per hour. During the home study the patient also had episodes of tachycardia with the maximum heart rate of 113 in addition to decreasing her oxygen down to 81%. The patient does have significant symptoms of daytime drowsiness. The patient needs to start PAP therapy at this time. Will make arrangements for her to do so. In the meantime she also carries a diagnosis of asthma. She does have a short- acting beta agonist but she has not used it. It is likely the fact that she is on Dupixent for her ectopic dermatitis that is also helping her asthma symptoms. She does describe having chest pain intermittently on the left side. Currently it is not present. We will start a CXR. 08/17/2023 the patient is here for a new evaluation. The patient had been evaluated before for sleep apnea. She did have a positive sleep study and we did request she start CPAP but she was never called apparently and therefore never started CPAP therapy. The issue now is that she started developing a rash around the areas where she has tattoos. She did follow-up with Dermatology. She had a biopsy which demonstrated granulomas suggesting of sarcoidosis. The patient did have his x-rays of the chest sometime in February 2023 which I personally by me demonstrating prominence of the hilum suggesting all lymphadenopathy consistent with sarcoidosis. Could not really appreciate any interstitial lung disease. The patient ultimately started having issues with her eyesight. Currently is waiting to see an eye doctor. She also complains of asthma like symptoms she does have a rescue inhaler that she uses at times. But typically about 2 times week. She has been using it more often lately however. Explained to her that the diagnosed sarcoidosis can be multiorgan. She did have blood work done it she did have some slight elevations of the LFTs. Otherwise kidney functions normal. Her vitamin-D level is a little low. Will plan to get additional workup specially looking for other connective tissue conditions. Also be important to check an Iftikhar level to see if the activity can help us assess sarcoid activity. Will have to do PFTs also CT scan of the chest to follow-up the abnormal chest x-ray. Once the patient undergoes all these studies will have to review them together. The patient may be a good candidate for treatment of her sarcoidosis. However, will wait for the results as 1st. Regards the sleep apnea she continues have daytime drowsiness. Her [place] score is indeed elevated 10/24. But at this time will will go ahead and just assess the sarcoid activity and then follow-up with that in the near future. 09/24/2023 the patient is here for pulmonary follow-up visit. Overall she is doing well from a respiratory status. She is having some visual changes and will be following up with her director targeted marketing soon. She will make sure to let them know that she has sarcoidosis as a diagnosis. In meantime we did review her blood work. She did have positive ARIES x2 although there both low titers. Continue to monitor those laboratories closely. In addition to that she did have a CT scan of the chest were personally reviewed. Does some degree lymphadenopathy and pulmonary nodules. The actual CT scan has not been officially read. Therefore, if any other changes I will let her know. Other laboratories from July demonstrates normal renal function normal calcium and normal liver function studies. She does not have any respiratory symptoms this time so therefore systemic therapy is not warranted. Will continue to monitor for any end-organ disease. 12/30/2023 the patient is here for a pulmonary follow-up visit. Overall she is doing well. Which appears to be stable. She also was noted to have some thyroid nodules. She has yet to have a thyroid ultrasound to evaluate the thyroid nodules. Therefore, put an order ran this time. Depending on the results she may need to see endocrinology. She is doing better with her sleep. Trying positional therapy. Her [place] score is 7/24. She continues with respiratory therapy. Will follow-up in 6 months with PFTs. [facility] Medical History (Updated 12/30/23 @ 14:37 by Dax Portillo MD) Thyroid nodule New abnormality on chest x-ray Sarcoidosis Pure hypercholesterolemia Atopic dermatitis СВЕТЛАНА (obstructive sleep apnea) Morbid obesity with BMI of 40.0-44.9, adult Panniculitis Eczema Lumbar degenerative disc disease Allergic dermatitis COVID-19 Anemia Asthma Surgical History Hx of gastric bypass History of cholecystectomy S/P panniculectomy Gastric bypass status for obesity History of abdominal surgery H/O: hysterectomy (~11/20/14) Family History Family/Other Back problem Mother Diabetes Hypertension Hypercholesteremia Depression Brother Gallstones Daughter Asthma Maternal Uncle Cancer Maternal Uncle Throat cancer Maternal Grandmother Diabetes Maternal Grandfather Diabetes Paternal Grandmother Myocardial infarction Social History Housing: Apartment Are you a primary childcare center administrator to a significant other at home: No Do you presently have visiting nurse or other home services: No Alcohol intake: current Alcohol intake frequency: holidays/special occasions only Patient Tobacco Use Status: Never used Tobacco e-Cigarette/Vaping Use: Never Used Second Hand Smoke Exposure: Yes service: No Current occupational status: employed Cognitive needs: No Hearing needs: No Vision needs: Yes Review of Systems Const Reports daytime sleepiness, Reports difficulty sleeping and Reports weight gain Eyes Reports change in vision ENT Denies change in voice, Reports nasal congestion and Reports nasal discharge Card Denies chest pain and Reports dyspnea on exertion Resp Reports cough, Reports dyspnea on exertion and Denies wheezing GI Denies abdominal pain Musc Reports no additional complaints Skin/Breast Reports lesions and Reports rash Neuro Reports no additional complaints Torey/Lymph Denies easy bruising and Denies lymphadenopathy Aller/Immun Denies wheezing Physical Exam Vital Signs: Last Vital Signs Pulse 87 12/30/23 14:21 Pulse Ox 99 12/30/23 14:21 Oxygen Delivery Method Room Air 12/30/23 14:21 BMI result Body Mass Index 45.1 Const General: alert HEENT Head: Yes normocephalic Neck Neck: Yes supple Chest Chest palpation & inspection: normal inspection of the chest Resp Effort & Inspection: normal respiratory effort Auscultation: clear to auscultation bilaterally Cardio Rate: regular rate Rhythm: regular rhythm Heart sounds: S1 normal heart sound present and S2 normal heart sound present GI Palpation (GI): Soft to palpation and nontender Auscultation: normal bowel sounds Skin Lesions: lesion noted Extrem General: Yes edema Assessment & Plan Assessment & Plan (1) Asthma: Code(s): J45.909 - Unspecified asthma, uncomplicated Category: Medical Qualifiers: Asthma complication type: uncomplicated Asthma persistence: intermittent Asthma severity: mild Qualified Code(s): J45.20 - Mild intermitt ent asthma, uncomplicated (2) СВЕТЛАНА (obstructive sleep apnea): Code(s): G47.33 - Obstructive sleep apnea (adult) (pediatric) Category: Medical (3) Sarcoidosis: Code(s): D86.9 - Sarcoidosis, unspecified Category: Medical (4) Thyroid nodule: Code(s): E04.1 - Nontoxic single thyroid nodule Category: Medical Plan Continue Symbicort JACKIE as needed likely have to repeat PSG in the near future eye exam r/o uveitis Thyroid US F/U 6 months, needs to reschedule PFTs Orders: Orders US thyroid 12/30/23 E04.1 - Nontoxic single thyroid nodule Coding Level of Care Code Est Pt Level 4 (40043) Diagnoses Mild intermittent asthma without complication J45.20 Asthma complication type: uncomplicated Asthma persistence: intermittent Asthma severity: mild СВЕТЛАНА (obstructive sleep apnea) G47.33 Sarcoidosis D86.9 Thyroid nodule E04.1 Time Spent (min) 17
[2023-12-30 14:21] VITALS: PULSE 87; O2SAT 99; BMI 45.1
== END 2023-12-30 14:42 | disposition home or self-care (01) ==
PROVIDERS: PCP Internal Medicine; Visit Provider Hospitalist
DX: J45.20 Mild intermittent asthma, uncomplicated (principal); G47.33 Obstructive sleep apnea (adult) (pediatric); D86.9 Sarcoidosis, unspecified; E04.1 Nontoxic single thyroid nodule
CPT/HCPCS: 99214

== ENCOUNTER → 2023-12-30 14:09 | Outpatient (BNVA) | payer OTHER, SELFPAY | PROVIDERS: PCP Internal Medicine; Visit Provider Hospitalist | DX: D86.9 Sarcoidosis, unspecified (principal); J45.20 Mild intermittent asthma, uncomplicated; G47.33 Obstructive sleep apnea (adult) (pediatric); E04.1 Nontoxic single thyroid nodule | CPT/HCPCS: 99212 ==

== ENCOUNTER 2024-01-14 21:28 | Emergency (ER) | payer OTHER, SELFPAY ==
--- NOTE | 2024-01-14 | ECG_ITS ---
Test Reason : CHEST PAIN Blood Pressure : / mmHG Vent. Rate : 124 BPM Atrial Rate : 124 BPM P-R Int : 158 ms QRS Dur : 078 ms QT Int : 302 ms P-R-T Axes : 063 -17 033 degrees QTc Int : 433 ms Artifact in tracing Sinus tachycardia Cannot rule out Anterior infarct (cited on or before 06-MAR-2013) Abnormal ECG When compared with ECG of 06-MAR-2013 10:50, Vent. rate has increased BY 74 BPM Nonspecific T wave abnormality has replaced inverted T waves in Inferior leads Referred By: Generic ED Physician Electronically Signed By:RODY SEVILLA
[2024-01-14 21:29] VITALS: BP 145/83; PULSE 133; RESP 24; TEMP 37.1; O2SAT 96; BMI 40.7
--- NOTE | 2024-01-14 21:46 | ED.ALLEREA ---
HPI - Allergic Reaction General Chief complaint: Allergic Reaction Stated complaint: Allergic reaction Time Seen by Provider: 01/14/24 21:37 Source: patient Mode of arrival: ambulatory Limitations: no limitations History of Present Illness ED Provider: DR. Otero HPI narrative: 43-year-old female history of environmental allergic reactions in the past patient usually walk around with EpiPen to use for allergic reaction. Patient was at a [employer] party with different food when she suddenly has diffuse itching and rash, patient did not have her EpiPen in her purse today. Patient feels chest tightness, and tingling in the throat. Related Data Home Medications ?Medication ?Instructions ?Recorded ?Confirmed dupilumab 300 mg/2 mL subcutaneous 300 mg subcut Q4W 11/15/21 11/22/23 pen injector (Dupixent) alclometasone 0.05 % topical topical PRN 02/17/22 11/22/23 ointment Previous Rx's ?Medication ?Instructions ?Recorded ketoconazole 2 % shampoo 1 appl topical 2XW 14 days #120 mL 08/14/20 acetaminophen 325 mg capsule 650 mg (2 x 325 mg) PO Q6H PRN 11/15/21 (Tylenol) fever or pain #90 caps loratadine 10 mg tablet 10 mg PO DAILY PRN for itch #30 11/15/21 tabs hydroxyzine HCl 25 mg tablet 25 mg PO QID PRN for itch #120 tabs 02/12/22 tizanidine 4 mg tablet 4 mg PO Q8H PRN for muscle spasm 02/12/22 30 days #90 tabs epinephrine 0.3 mg/0.3 mL 0.3 mg (0.3 mL) IM Q15M PRN 12/07/22 injection, auto-injector anaphylaxis #2 ea diphenhydramine HCl 25 mg capsule 50 mg (2 x 25 mg) PO TID PRN 01/03/23 (Benadryl) allergic reaction #30 caps budesonide-formoterol HFA 160 2 puff inhalation BID 30 days 08/17/23 mcg-4.5 mcg/actuation aerosol #10.2 grams inhaler (Symbicort) cholecalciferol (vitamin D3) 50 50 mcg PO DAILY 90 days #90 caps 11/17/23 mcg (2,000 unit) capsule desonide 0.05 % topical cream 1 appl topical BID 30 days #120 12/08/23 grams semaglutide (weight loss) 0.25 0.25 mg (0.5 mL) subcut QWEEK #2 mL 01/05/24 mg/0.5 mL subcutaneous pen injector (Zhang) albuterol sulfate 90 mcg/actuation 2 puff inhalation Q6-8H PRN 01/12/24 aerosol inhaler shortness of breath or wheezing 30 days #8.5 grams Allergies Allergy/AdvReac Type Severity Reaction Status Date / Time Sulfa (Sulfonamide Allergy Unknown hives Verified 01/14/24 21:31 Antibiotics) SEASONAL ALLERGIES Allergy Unknown RUNNY NOSE Uncoded 12/30/23 14:22 - ITCHY EYES Review of Systems Review of Systems: All other systems are reviewed and are negative Constitutional: Reports as per HPI and Reports no additional constitutional complaints Eyes: Reports as per HPI and Reports no additional eye complaints Reports system reviewed and no additional complaints, except as documented Cardiovascular: Reports as per HPI and Reports no additional cardiovascular complaints Respiratory: Reports as per HPI and Reports no additional respiratory complaints Gastrointestinal: Reports as per HPI and Reports no additional gastrointestinal complaints Genitourinary: Reports no additional female genitourinary complaints Musculoskeletal: Reports no additional musculoskeletal complaints Skin/Breast: Reports system reviewed and no additional complaints, except as docu Psychiatric: Reports no additional psychiatric complaints Endocrine: Reports no additional endocrine complaints Hematologic/Lymphatic: Reports no additional hematologic/lymphatic complaints Allergic/Immunologic: Reports no additional allergic/immunologic complaints Reports system reviewed and no additional complaints, except as documented and Reports Abnormal speech present [facility] Past Medical History Medical History Thyroid nodule New abnormality on chest x-ray Sarcoidosis Pure hypercholesterolemia Atopic dermatitis СВЕТЛАНА (obstructive sleep apnea) Morbid obesity with BMI of 40.0-44.9, adult Panniculitis Eczema Lumbar degenerative disc disease Allergic dermatitis COVID-19 Anemia Asthma Surgical History Hx of gastric bypass History of cholecystectomy S/P panniculectomy Gastric bypass status for obesity History of abdominal surgery H/O: hysterectomy (~11/20/14) Family History Family History Family/Other Back problem Mother Diabetes Hypertension Hypercholesteremia Depression Brother Gallstones Daughter Asthma Maternal Uncle Cancer Maternal Uncle Throat cancer Maternal Grandmother Diabetes Maternal Grandfather Diabetes Paternal Grandmother Myocardial infarction Social History Social History Housing: Apartment Are you a primary youth career specialist to a significant other at home: No Do you presently have visiting nurse or other home services: No Alcohol intake: current Alcohol intake frequency: holidays/special occasions only Patient Tobacco Use Status: Never used Tobacco Smoked in Last 30 Days: No e-Cigarette/Vaping Use: Never Used Second Hand Smoke Exposure: Yes Advance Directives: No Advance Directives Information Provided: No Do you have a plan to hurt others: No Plan Patient : No service: No Current occupational status: employed Cognitive needs: No Hearing needs: No Vision needs: Yes Physical Exam ED Vital Signs: Vital Signs - 24 hr 01/14/24 21:29 01/14/24 21:49 01/14/24 22:17 Temperature 98.8 F Pulse Rate 133 H 124 H 100 Respiratory Rate 24 H 20 Blood Pressure 145/83 H 133/76 124/66 Pulse Oximetry 96 97 Oxygen Delivery Method Room Air Room Air BMI result Body Mass Index 40.7 Vital signs have been reviewed and appear to be correct. Blood pressure elevated. Heart rate elevated. Respiratory rate elevated. Temperature normal. Oxygen saturation normal. Appearance: Alert. Oriented X3. No acute distress, anxious. Head: Normal external exam. Normocephalic. Atraumatic. No Mcdonald signs noted. No raccoon eyes noted Eyes: PERRLA. EOMI. Conjunctiva and sclera normal. Eyelids normal. ENT: TM's Normal. Pharynx normal. Uvula midline. Moist mucous membranes. No trismus noted. No drooling noted. No muffled voice noted. Neck: Normal inspection. Neck supple. FROM. No adenopathy. Thyroid Normal. No meningeal signs. No neck mass noted. CVS: Normal heart rate and rhythm. Heart sound normal. No murmurs noted. Pulses normal throughout. Respiratory: No stridor, patent airway. No respiratory distress. Painless inspiration. Breath sounds normal. No wheezes/rales/rhonchi noted. Chest nontender. No accessory muscle usage noted or decreased air movement noted. Abdomen: Soft and nontender. Bowel sounds normal in all 4 quadrants. No distention noted. No organomegaly noted. No visible injury noted. Back: No CVA tenderness. Full range of motion noted. Skin: Diffuse hives and itching. Extremities: No lower extremity edema. Extremities exhibit normal range of motion. Extremities nontender. Neuro: Oriented X 3. Cranial nerve exam: II-XII are grossly intact No motor deficit. No sensory deficit. Reflexes normal. Course Reevaluation(s) Reevaluation #1: Patient is feeling better, no shortness of breath, no wheezing, no stridor, with significant improvement after Solu-Medrol, Benadryl, Pepcid, IV fluids, subcu epinephrine. Time: 23:18 Reevaluation #2: Patient is feeling better, less itching and improvement of rash, complaining of mid chest pain likely due to anxiety will consider EKG and check troponin. Time: 00:39 Reevaluation #3: Patient feels better, no itching, no rash, no chest pain. Troponin is negative, EKG showing no acute ischemic changes. Time: 01:00 Medications Administered Discontinued Medications Generic Name Dose Route Start Last Admin Trade Name Freq PRN Reason Stop Dose Admin Diphenhydramine HCl 50 mg 01/14/24 21:44 01/14/24 21:53 Diphenhydramine Hcl 50 Mg/Ml Vial IVPUSH 01/14/24 21:45 50 mg ONCE ONE Administration Epinephrine 0.3 mg 01/14/24 21:44 01/14/24 21:49 Epinephrine 1 Mg/Ml Vial SUBCUT 01/14/24 21:45 0.3 mg STAT STA Administration Famotidine 20 mg 01/14/24 21:44 01/14/24 21:58 Famotidine/Pf 20 Mg/2 Ml Vial IVPUSH 01/14/24 21:45 20 mg ONCE ONE Administration Sodium Chloride 1,000 mls @ 999 mls/hr 01/14/24 21:45 01/14/24 23:03 Ns IVCONT 01/14/24 23:45 Infused .Q1H1M MICHAEL Infusion Methylprednisolone Sodium Succinate 125 mg 01/14/24 21:44 01/14/24 21:54 Methylprednisolone Sod Succ 125 Mg/2 Ml Vial IVPUSH 01/14/24 21:45 125 mg ONCE ONE Administration Medical Decision Making Differential Diagnosis Differential Diagnoses: The differential diagnosis associated with the presentation includes (Hives, allergic reaction, upper airway compromise, anaphylaxis.) Admission/Observation Consideration of admission/observation: Escalation of care including admission/observation considered Lab Data MDM Lab Attestation statement: I reviewed the patient's lab results. 01/15/24 00:10 01/15/24 00:10 Labs: Lab Results 01/15/24 Range/Units 00:10 WBC 8.9 (4.8-10.8) X10*3/uL RBC 4.94 (4.20-5.50) X10*6/uL Hgb 14.9 (12.0-16.0) g/dl Hct 43.2 (37.0-47.0) % MCV 87.4 (80.0-98.0) fL MCH 30.2 (27.0-33.0) pg MCHC 34.5 (31.0-35.0) g/dl RDW 13.4 (11.0-16.0) % Plt Count 474 H D (160-400) X10*3/uL MPV 10.7 (9.4-12.3) fL Immature Gran % (Auto) 0.6 H (0.0-0.4) % Neut % (Auto) 56.2 (45-73) % Lymph % (Auto) 32.3 (20-40) % [place] % (Auto) 9.6 (2-11) % Eos % (Auto) 1.1 (0-4) % Baso % (Auto) 0.2 (0-2) % Lymph # (Auto) 2.9 (1.2-4.9) X10*3/uL [place] # (Auto) 0.9 (0.1-1.2) X10*3/uL Eos # (Auto) 0.1 (0.0-0.4) X10*3/uL Baso # (Auto) 0.0 (0.0-0.2) X10*3/uL Abs Immat Gran (auto) 0.05 H (0.00-0.03) X10*3/uL Absolute Neuts (auto) 5.0 (2.0-8.3) x10*3/uL Absolute Nucleated RBC 0.000 (0.0-0.012) X10*3/uL Nucleated RBC % (auto) 0.0 (0.0-0.2) /100WBC Sodium 139 (135-145) mmol/L Potassium 3.9 (3.3-5.1) mmol/L Chloride 108 (96-108) mmol/L Carbon Dioxide 18 L (22-29) mmol/L Anion Gap 17 (12-20) BUN 15 (9-16) mg/dL Creatinine 0.71 (0.5-1.4) mg/dL Estim Creat Clear Calc 118.0 Estimated GFR > 60 Random Glucose 105 (60-115) mg/dL Calcium 9.2 (8.4-10.2) mg/dL Troponin I High Sens 12.0 (<3.5-17.0) ng/L Independent Interpretation I performed an independent interpretation of an: EKG (Normal sinus rhythm at 100 beats per minute, left axis deviation, normal intervals.) Discharge Plan Discharge Clinical Impression: Allergic reaction, Chest pain Patient Disposition: Home, Self-Care Instructions: General Allergic Reaction (ED) Prescriptions: No Action hydroxyzine HCl 25 mg tablet 25 mg PO QID PRN (Reason: for itch) Qty: 120 1RF tizanidine 4 mg tablet 4 mg PO Q8H PRN (Reason: for muscle spasm) 30 Days Qty: 90 1RF desonide 0.05 % cream 1 appl topical BID 30 Days Qty: 120 1RF Wegovy 0.25 mg/0.5 mL pen injector 0.25 mg subcut QWEEK Qty: 2 0RF Rx Instructions: administer weeks 1 through 4 of therapy albuterol sulfate 90 mcg/actuation HFA aerosol inhaler 2 puff inhalation Q6-8H PRN (Reason: shortness of breath or wheezing) 30 Days Qty: 8.5 5RF epinephrine 0.3 mg/0.3 mL auto-injector 0.3 mg IM Q15M PRN (Reason: anaphylaxis) Qty: 2 0RF Rx Instructions: for 3 doses diphenhydramine HCl [Benadryl] 25 mg capsule 50 mg PO TID PRN (Reason: allergic reaction) Qty: 30 0RF ketoconazole 2 % shampoo 1 appl topical 2XW 14 Days Qty: 120 0RF acetaminophen [Tylenol] 325 mg capsule 650 mg PO Q6H PRN (Reason: fever or pain) Qty: 90 2RF loratadine 10 mg tablet 10 mg PO DAILY PRN (Reason: for itch) Qty: 30 0RF cholecalciferol (vitamin D3) 50 mcg (2,000 unit) capsule 50 mcg PO DAILY 90 Days Qty: 90 3RF Dupixent Pen 300 mg/2 mL pen injector 300 mg subcut Q4W alclometasone 0.05 % ointment topical PRN budesonide-formoterol [Symbicort] 160-4.5 mcg/actuation HFA aerosol inhaler 2 puff inhalation BID 30 Days Qty: 10.2 11RF Referrals: Lucas Washington MD [Primary Care Provider] - Print Language: Ukrainian
[2024-01-14 21:49] VITALS: BP 133/76; PULSE 124
[2024-01-14] MEDS: EPINEPHrine 1 MG/ML VIAL 0.3 MG SUBCUT (21:49)
[2024-01-14] MEDS: diphenhydrAMINE HCL 50 MG/ML VIAL IVPUSH (21:53)
[2024-01-14] MEDS: methylPREDNISolone Sod Succ 125 MG/2 ML VIAL IVPUSH (21:54)
[2024-01-14] MEDS: Famotidine/PF 20 MG/2 ML VIAL IVPUSH (21:58)
[2024-01-14] MEDS: 0.9 % Sodium Chloride 1,000 ML 999 ML IVCONT ×2 (22:02→23:05)
--- NOTE | 2024-01-14 22:14 | PC.NURSE ---
Pt A&Ox3, reports eating macaroni salad at a [employer] party 15 min [employer] and feeling really itchy and hot with all over body hives. Pt reports hx of same last reaction 1 year ago. SpO2 96% on RA, lung sounds clear. Pt tearful ,anxious HR 130s. IV line placed, Pt medicated per SEP.
[2024-01-14 22:17] VITALS: BP 124/66; PULSE 100; RESP 20; O2SAT 97
--- NOTE | 2024-01-14 23:28 | PC.NURSE ---
Pt reports effectiveness to meds given, reports shaking, known side effect from med.
--- NOTE | 2024-01-14 23:56 | ECG_ITS ---
Test Reason : chest pain Blood Pressure : / mmHG Vent. Rate : 100 BPM Atrial Rate : 100 BPM P-R Int : 148 ms QRS Dur : 084 ms QT Int : 356 ms P-R-T Axes : 040 -30 012 degrees QTc Int : 459 ms Normal sinus rhythm Left axis deviation Low voltage QRS Cannot rule out Anterior infarct (cited on or before 06-MAR-2013) Abnormal ECG When compared with ECG of 14-JAN-2024 21:45, No significant change was found Referred By: Paula Otero Electronically Signed By:RODY SEVILLA
[2024-01-15 00:15] LABS: MANUAL DIFF FLAG NO
[2024-01-15 00:16] LABS: Basophils Percent Auto 0.2 % (0-2); Eosinophils Absolute Auto 0.1 X10*3/uL (0.0-0.4); Eosinophils Percent Auto 1.1 % (0-4); Hematocrit 43.2 % (37.0-47.0); Hemoglobin 14.9 g/dl (12.0-16.0); Imm Gran Abs Auto 0.05 X10*3/uL (0.00-0.03); Imm Gran Pct Auto 0.6 % (0.0-0.4); Lymphocytes Absolute Auto 2.9 X10*3/uL (1.2-4.9); Lymphocytes Percent Auto 32.3 % (20-40); Mean Corpuscular HGB Conc 34.5 g/dl (31.0-35.0); Mean Corpuscular Hemoglobin 30.2 pg (27.0-33.0); Mean Corpuscular Volume 87.4 fL (80.0-98.0); Mean Platelet Volume 10.7 fL (9.4-12.3); Monocytes Absolute Auto 0.9 X10*3/uL (0.1-1.2); Monocytes Percent Auto 9.6 % (2-11); Neutrophils Percent Auto 56.2 % (45-73); Platelet Count 474 X10*3/uL (160-400); Red Blood Count 4.94 X10*6/uL (4.20-5.50); Red Cell Distribution Width 13.4 % (11.0-16.0); White Blood Count 8.9 X10*3/uL (4.8-10.8)
[2024-01-15 00:29] LABS: Anion Gap 17 (12-20); Blood Urea Nitrogen 15 mg/dL (9-16); Calcium 9.2 mg/dL (8.4-10.2); Carbon Dioxide 18 mmol/L (22-29); Chloride 108 mmol/L (96-108); Estimated Glomerular Filt Rate > 60; Glucose Random 105 mg/dL (60-115); Potassium 3.9 mmol/L (3.3-5.1); Sodium 139 mmol/L (135-145)
[2024-01-15 01:22] LABS: Troponin-I High Sensitivity 13.2 ng/L (<3.5-17.0)
[2024-01-15 01:45] VITALS: BP 118/68; PULSE 78; RESP 16; TEMP 36.7; O2SAT 98
== END 2024-01-15 02:00 | disposition home or self-care (01) ==
PROVIDERS: Emergency Provider Emergency Medicine; PCP Internal Medicine
DX: R07.9 Chest pain, unspecified (principal); T78.40XA Allergy, unspecified, initial encounter; R21 Rash and other nonspecific skin eruption; X58.XXXA Exposure to other specified factors, initial encounter; Z79.899 Other long term (current) drug therapy
CPT/HCPCS: 36415; 80048; 84484; 85025; 93005; 96361; 96372; 96374; 96375; 99284; 99285; J0171; J1200; J2919

== ENCOUNTER → 2024-01-14 21:45 | Outpatient (BNV) | payer OTHER, SELFPAY | PROVIDERS: Emergency Provider Emergency Medicine; PCP Internal Medicine; Visit Provider Internal Medicine | DX: R94.31 Abnormal electrocardiogram [ECG] [EKG] (principal) | CPT/HCPCS: 93010 ==

== ENCOUNTER 2024-03-22 15:45 | Outpatient (AMB) | payer OTHER, SELFPAY ==
[2024-03-22 15:52] VITALS: BP 110/80; PULSE 99; O2SAT 95; BMI 44.0
--- NOTE | 2024-03-22 15:52 | MHC.PC.OV ---
Vital Signs 03/22/24 15:52 Height 5 ft 3 in Weight 248 lb 4 oz BMI 44.0 BP 110/80 Blood Pressure Location Lt brachial Position Sitting Pulse 99 Pulse Source Pulse Oximeter Pulse Oximetry (%) 95 Oxygen Delivery Method Room Air Intake Visit Reasons: 4monthsf\u Industrial Relations Manager Required: No Accompanied by: Self / Same As Patient Allergies Sulfa (Sulfonamide Antibiotics) Allergy (Unknown, Verified 03/22/24 16:38) hives SEASONAL ALLERGIES Allergy (Unknown, Uncoded 03/22/24 16:38) RUNNY NOSE - ITCHY EYES Medication List - Last Reconciled 03/22/24 by Lucas Washington MD acetaminophen (Tylenol) 650 mg (2 x 325 mg) PO Q6H PRN albuterol sulfate 90 mcg/actuation 2 puffs inhalation Q6-8H PRN 30 days alclometasone 0.05% topical PRN budesonide-formoterol 160-4.5 mcg/actuation (Symbicort) 2 puffs inhalation BID 30 days cholecalciferol (vitamin D3) 50 mcg PO DAILY 90 days desonide 0.05% 1 appl topical BID 30 days diphenhydramine HCl (Benadryl) 50 mg (2 x 25 mg) PO TID PRN dupilumab (Dupixent) 300 mg subcut Q4W epinephrine 0.3 mg (0.3 mL) IM Q15M PRN hydroxyzine HCl 25 mg PO QID PRN ketoconazole 2% 1 appl topical 2XW 14 days loratadine 10 mg PO DAILY PRN semaglutide (weight loss) 0.5 mg (0.5 mL) subcut QWEEK tizanidine 4 mg PO Q8H PRN 30 days Tobacco use date assessed: 03/22/24 Dental Screening Dental Screen Date: 03/22/24 Did you have a dental visit in the last 12 months?: Yes Did you have a dental problem in the last 6 months where you did not have access to dental care?: No Was dental information given to patient?: Patient has dentist HPI 4monthsf\u HPI Details Patient comes in today for her follow up visit States that she has been experiencing increased pain over her right lower back (points to her right SI joint as to the location of her current pain) for over 2 months now States that the pain would also sometimes radiate down into the back of her right thigh She has also noticed that she is unable to cross her right leg over her left thigh completely whereas she has no problem doing it with her left leg Recalls that she fell about a year ago but does not know if her fall back then has anything to do with her recent symptoms She denies any other recent injury or trauma to her lower back or legs Adds that she recently took her 2nd shot of the higher dose of her weight loss Rx - this was increased by me a couple of weeks ago after she stayed on her initial dose for a couple of months She ws able to lose over 20 pounds in the past 2 to 3 months but she then started to gain a lot of her weight back recently - this was when we decided to go up on her dose She denies any headaches or dizziness Denies any chest pains, no increased SOB No nausea/vomiting, no abdominal pain No change in bowel habits noted She has not had her follow up labs done yet - is advised to go and get these done [facility] Medical History (Updated 03/22/24 @ 19:35 by Lucas Washington MD) Thyroid nodule New abnormality on chest x-ray Sarcoidosis Pure hypercholesterolemia Atopic dermatitis СВЕТЛАНА (obstructive sleep apnea) Morbid obesity with BMI of 40.0-44.9, adult Panniculitis Eczema Lumbar degenerative disc disease Allergic dermatitis COVID-19 Anemia Asthma Surgical History Hx of gastric bypass History of cholecystectomy S/P panniculectomy Gastric bypass status for obesity History of abdominal surgery H/O: hysterectomy (~11/20/14) Family History Family/Other Back problem Mother Diabetes Hypertension Hypercholesteremia Depression Brother Gallstones Daughter Asthma Maternal Uncle Cancer Maternal Uncle Throat cancer Maternal Grandmother Diabetes Maternal Grandfather Diabetes Paternal Grandmother Myocardial infarction Social History Housing: Apartment Are you a primary reproductive healthcare assistant to a significant other at home: No Do you presently have visiting nurse or other home services: No Alcohol intake: current Alcohol intake frequency: holidays/special occasions only Patient Tobacco Use Status: Never used Tobacco e-Cigarette/Vaping Use: Never Used Second Hand Smoke Exposure: Yes service: No Current occupational status: employed Cognitive needs: No Hearing needs: No Vision needs: Yes Questionnaire PHQ-9 Over the last 2 weeks, how often have you been bothered by any of the following problems? 1. Little interest or pleasure in doing things: not at all 2. Feeling down, depressed, or hopeless: not at all 3. Trouble falling or staying asleep, or sleeping too much: not at all 4. Feeling tired or having little energy: not at all 5. Poor appetite or overeating: not at all 6. Feeling bad about yourself - or that you are a failure or have let yourself or your family down: not at all 7. Trouble concentrating on things, such as reading the newspaper or watching television: not at all 8. Moving or speaking so slowly that other people could have noticed. Or the opposite - being so fidgety or restless that you have been moving around a lot more than usual: not at all 9. Thoughts that you would be better off or of hurting yourself in some way: not at all Total score: 0 Depression Screening Interpretation: Negative Depression Screening Done: Yes 12515 - PHQ-9 Billing: Yes Source: Developed by Drs. Neil Dodd, Karina Avalos, Steve Quevedo and colleagues, with an educational radha from [employer]. Thrive Questionnaire Date Thrive assessed: 03/22/24 I am a: Patient What is your living situation today?: I have a steady place to live Within the past 12 months, did the food you bought not last and you didn't have the money to get more?: Never true Within the past 12 months, did you worry whether your food would run out before you got money to buy more?: Never true Do you have trouble paying for medicines?: No Do you have trouble getting transportation to medical appointments?: No Do you have trouble paying your heating and electricity bill?: No Do you have trouble taking care of your child, family member or friend?: No Do you have trouble with day-to-day activities such as bathing, preparing meals, shopping, managing finances, etc.?: No Are you currently unemployed and looking for a job?: No Are you interested in more education?: No Please select the resources that you would like help with: None Currently or been in a relationship where the following occur: No concerns reported THRIVE Score: 0 AUDIT C Alcohol Use Questionnaire (AUDIT-C) 1. How often do you have a drink containing alcohol?: Monthly or less 2. How many drinks containing alcohol do you have on a typical day when you are drinking?: 1 or 2 3. How often do you have six or more drinks on one occasion?: Never Total Score: 1 Score Reviewed/Action Taken: Yes CAITY-7 AMB Questionnaire CAITY-7 Date CAITY - 7 assessed: 03/22/24 Feeling nervous, anxious, or on edge: 0 = Not at all Not being able to stop or control worryin = Not at all Worrying too much about different things: 0 = Not at all Trouble relaxin = Not at all Being so restless that it is hard to sit still: 0 = Not at all Becoming easily annoyed or irritable: 0 = Not at all Feeling afraid as if something awful might happen: 0 = Not at all Total CAITY-7 score (0-4 normal; 5-9 mild; 10-14 moderate; 15-21 severe): 0 Source: Developed by Drs. Neil Dodd, Karina Avalos, Steve Quevedo and colleagues, with an educational radha from [employer]. Review of Systems Const Denies chills, Reports fatigue, Denies fever(s) and Denies headache(s) ENT Denies dysphagia, Denies dizziness, Denies otalgia, Denies headache(s), Denies neck pain, Denies odynophagia and Denies sore throat Card Denies chest pain, Denies palpitations and Denies dyspnea Resp Denies cough and Denies dyspnea GI Denies abdominal pain, Denies constipation, Denies dysphagia, Denies heartburn, Denies diarrhea, Denies nausea, Denies odynophagia and Denies vomiting Denies nocturia, Denies dysuria and Denies urinary urgency Musc Reports back pain (recurrent; increased over the right SI joint area lately), Reports arthralgias (on and off involving multiple joints) and Denies neck pain Skin/Breast Denies rash Neuro Denies dizziness and Denies headache(s) Endo Reports fatigue and Denies palpitations Physical exam (Primary Care) Vital Signs: Last Vital Signs Pulse 99 03/22/24 15:52 BP 110/80 03/22/24 15:52 Pulse Ox 95 03/22/24 15:52 Oxygen Delivery Method Room Air 03/22/24 15:52 BMI result Body Mass Index 44.0 Tobacco/Smoking Status: Tobacco use Status Tobacco use date assessed 03/22/24 03/22/24 15:55 Patient Tobacco Use Status Never used Tobacco 03/22/24 15:55 e-Cigarette/Vaping Use Never Used 03/22/24 15:55 PHQ-9: PHQ-9 Score PHQ-9: Total score 0 03/22/24 16:39 Depression Screening Interpretation: Negative Thrive Assessment: Date of Thrive Assessment Date Thrive assessed 03/22/24 03/22/24 15:55 Currently or been in a relationship where the following occur: No concerns reported Const General: no acute distress and alert HENMT Ears: TM's normal bilaterally and EAC's normal Throat: Yes posterior oropharynx normal and Yes tonsils normal (no TP congestion) Neck Neck: Yes no lymphadenopathy and Yes supple Thyroid: Thyroid normal Resp Auscultation: clear to auscultation bilaterally, no rales and no wheezes Cardio Rate: regular rate Rhythm: regular rhythm Heart sounds: no murmurs GI Palpation (GI): Soft to palpation and nontender Auscultation: normal bowel sounds General: Yes no CVA tenderness Back/Spine/Pelvis Back: no CVA tenderness Cervical Spine: No Cervical spine tenderness Thoracic/Lumbar Spine: lumbar spinal tenderness (mild) Sacroiliac joints: on the right tender to palpation Skin Rashes: no rashes Extrem General: Yes no clubbing, cyanosis or edema Right lower extremity: knee Details: tenderness; no swelling and foot Details: tenderness Location: of the great toe Location: at the MTP joint Assessment and Plan Assessment & Plan (1) Pure hypercholesterolemia: Code(s): E78.00 - Pure hypercholesterolemia, unspecified Plan: She was not able to get her follow up labs done prior to her appointment today - is advised to go and get them done [facility] Reinforced low cholesterol diet Her cholesterol level was significantly elevated back in 2009 but she has been able to get them improved since then with diet modification alone (2) Asthma: Code(s): J45.909 - Unspecified asthma, uncomplicated Qualifiers: Asthma severity: mild Asthma persistence: intermittent Asthma complication type: uncomplicated Qualified Code(s): J45.20 - Mild intermittent asthma, uncomplicated Plan: Stable/controlled Continue Symbicort 160-4.5 mcg 2 inhalations BID and Albuterol HFA 2 inhalations every 6 hours as needed States that her asthma and eczema have both improved a lot with less flare ups since she was started on Dupixent about 1 to 2 years ago - continue Dupixent 300 mg inj SQ every 4 weeks (3) Sarcoidosis: Code(s): D86.9 - Sarcoidosis, unspecified Plan: Currently appears stable Patient was initially advised by Dr. Comer a few months ago that the skin lesions they biopsied from her turned out to be sarcoid lesions and recommended that she see pulmonary for further evaluation and management of sarcoidosis Labs done a few months ago revealed elevated ESR and CRP; chest x-rays done revealed (+) prominence of the pulmonary hilum suggestive of of sarcoidosis Chest CT done in September 2023 revealed (+) numerous enlarged mediastinal lymph nodes noted. Evaluation for hilar lymphadenopathy is suboptimal given lack of IV contrast, however, there is suspicion of underlying enlarged hilar lymph nodes bilaterally There are also several bilateral pulmonary nodules noted, the largest measuring 7 mm She is now following up with [facility] Pulmonary regularly for her sarcoidosis (4) Thyroid nodule incidentally noted on imaging study: Code(s): E04.1 - Nontoxic single thyroid nodule Plan: There is also a partially visualized right thyroid nodule measuring at least 2.8 cm on her chest CT done back in September 2023 Recalls that she was sent for a thyroid US by pulmonary but she missed her appointment a few months ago as she developed COVID at the time Will reorder her thyroid US for further evaluation (5) Lumbar degenerative disc disease: Code(s): M51.36 - Other intervertebral disc degeneration, lumbar region Plan: Reinforced activity and weight-lifting restrictions Lumbar spine MRI done in May 2020 revealed the followin. There are 4 nonrib-bearing lumbar-type vertebral bodies with sacralization of L5.? 2. L3-L4 mild broad-based disc bulge with a superimposed shallow right extraforaminal disc protrusion which contacts the exiting right L3 nerve root. Bilateral facet arthropathy and thickening of the ligamentum flavum causing minimal central canal as well as [id number] right and mild left neural foraminal stenosis. 3. L4-L5 broad-based disc bulge, slightly asymmetric to the right with posterior annular fissuring. This abuts the traversing right L5 nerve root within the lateral recess. Bilateral facet arthropathy with mild bilateral neural foraminal stenosis. Repeat lumbar spine x-rays done in May 2023 revealed (+) mild spondylosis with findings similar to those seen on her MRI done a few years ago Follow up with Pain Management as scheduled (6) Chronic SI joint pain: Code(s): M53.3 - Sacrococcygeal disorders, not elsewhere classified; G89.29 - Other chronic pain Plan: As she has been experiencing increased pain over her right SI joint area lately, will send her for repeat x-rays of the SI joint, as well as a repeat lumbar spine x-rays, for further evaluation (7) СВЕТЛАНА (obstructive sleep apnea): Code(s): G47.33 - Obstructive sleep apnea (adult) (pediatric) Plan: Continue using her CPAP device when sleeping at night daily Follow up with Sleep Medicine as scheduled (8) Atopic dermatitis: Code(s): L20.9 - Atopic dermatitis, unspecified Qualifiers: Atopic dermatitis type: unspecified Qualified Code(s): L20.9 - Atopic dermatitis, unspecified Plan: Stable - continue Desonide 0.05% cream BID PRN States that her eczema has improved significantly since she was started on Dupixent a couple of years ago Follow up with dermatology as scheduled (9) Macromastia: Code(s): N62 - Hypertrophy of breast Plan: She was previously referred for consideration for breast reduction surgery but has reportedly been advised that she will only be able to undergo breast reduction surgery IF she is able to lose at least 10 pounds Per request, she was referred to another plastic surgeon for consideration for reduction mammoplasty and panniculectomy at her last visit - states that she is now scheduled to have these done at some point (10) Obesity, morbid, BMI 40.0-49.9: Comment: 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 08/02/2019 Code(s): E66.01 - Morbid (severe) obesity due to excess calories Plan: Reinforced diet/exercise as tolerated/lose weight She has been referred to weight management here at [facility] for further evaluation and to explore other aspects as patient seems to have failed bariatric surgery - she has reportedly not lost much weight despite her gastric bypass surgery and subsequent conversion surgery She was previously tried on some Metformin 500 mg QD (best taken about an hour before her lunch) to see if this will help her lose some weight (by curbing her appetite) - states that she has also not been able to lose much weight here She was trialed again on Metformin at a previous visit with similar results and has managed to lose only about 3 pounds over the past few months We eventually started her on Wegovy 0.25 mg SQ once a week - she was able to lose a good amount of weight over the first 2 months but her weight then started coming back recently; her dose was then increased to 0.5 mg once a week and she just had her second shot of this yesterday Plan Follow up in 4 months Orders: Orders XR lumbar spine 2-3V Today G89.29 - Other chronic pain, M53.3 - Sacrococcygeal disorders, not elsewhere classified, M54.50 - Low back pain, unspecified XR sacroiliac joint min 3V Today G89.29 - Other chronic pain, M53.3 - Sacrococcygeal disorders, not elsewhere classified US thyroid Today E04.2 - Nontoxic multinodular goiter Referrals Pain Management Referral G89.29 - Other chronic pain, M53.3 - Sacrococcygeal disorders, not elsewhere classified, M54.50 - Low back pain, unspecified Coding Level of Care Code Est Pt Level 4 (22901) Complex EM visit Add On G2211 Diagnoses Pure hypercholesterolemia E78.00 Mild intermittent asthma without complication J45.20 Asthma severity: mild Asthma persistence: intermittent Asthma complication type: uncomplicated Sarcoidosis D86.9 Thyroid nodule incidentally noted on imaging study E04.1 Lumbar degenerative disc disease M51.36 Chronic SI joint pain M53.3; G89.29 СВЕТЛАНА (obstructive sleep apnea) G47.33 Atopic dermatitis, unspecified type L20.9 Atopic dermatitis type: unspecified Macromastia N62 Obesity, morbid, BMI 40.0-49.9 E66.01
== END 2024-03-22 16:48 | disposition home or self-care (01) ==
PROVIDERS: PCP Internal Medicine; Visit Provider Internal Medicine
DX: E78.00 Pure hypercholesterolemia, unspecified (principal); J45.20 Mild intermittent asthma, uncomplicated; D86.9 Sarcoidosis, unspecified; E04.1 Nontoxic single thyroid nodule; M51.36 Other intervertebral disc degeneration, lumbar region; M53.3 Sacrococcygeal disorders, not elsewhere classified; G89.29 Other chronic pain; G47.33 Obstructive sleep apnea (adult) (pediatric); L20.9 Atopic dermatitis, unspecified; N62 Hypertrophy of breast
CPT/HCPCS: 99214; G2211

== ENCOUNTER 2024-05-01 14:12 | Outpatient (REF) | payer OTHER, SELFPAY | END 2024-05-01 14:13 | disposition home or self-care (01) | LOC: HO.US 14:12 | PROVIDERS: PCP Internal Medicine; Visit Provider Internal Medicine | DX: E04.2 Nontoxic multinodular goiter (principal) | CPT/HCPCS: 76536 ==

== ENCOUNTER → 2024-05-01 14:14 | Outpatient (BNV) | payer OTHER, SELFPAY | PROVIDERS: PCP Internal Medicine; Visit Provider Radiology Diagnostic Radiology | DX: E04.2 Nontoxic multinodular goiter (principal); G93.0 Cerebral cysts | CPT/HCPCS: 76536 ==

== ENCOUNTER 2024-06-19 09:54 | Emergency (ER) | payer OTHER, SELFPAY ==
--- NOTE | ~2024-06-19 | XR_ITS ---
EXAMINATION: XR KNEE, RIGHT CLINICAL INFORMATION: fall, R knee pain, abrasion, ttp medial aspect COMPARISON: None available. TECHNIQUE: Four views of the right knee. FINDINGS: No fracture or joint effusion. Alignment is anatomic. Joint spaces are maintained. No abnormal soft tissue calcification. XR/XR knee RT 4V IMPRESSION: Unremarkable examination. Electronically signed by: Hoang Canales MD 06/19/2024 01:22 PM [facility]
--- NOTE | ~2024-06-19 | XR_ITS ---
EXAMINATION: XR HIP, LEFT CLINICAL INFORMATION: Left hip pain, status post fall. COMPARISON: Sacroiliac joint radiographs dated 01/02/2022. TECHNIQUE: AP view of the pelvis as well as AP and frog-leg lateral views of the left hip. FINDINGS: No acute fracture or dislocation. No hip joint space narrowing or marginal osteophytes. Mild left sacroiliac joint space narrowing with tiny marginal osteophytes. No osseous erosion. No abnormal soft tissue calcification. Surgical coils consistent with prior hernia repair. XR/XR hip LT w PEL1V IMPRESSION: 1. No acute fracture or dislocation. 2. Mild left sacroiliac joint osteoarthritis. Electronically signed by: Hoang Canales MD 06/19/2024 01:39 PM [facility]
--- NOTE | ~2024-06-19 | XR_ITS ---
EXAMINATION: XR HAND/WRIST, LEFT CLINICAL INFORMATION: diffuse wrist pain s/p fall COMPARISON: None available. TECHNIQUE: PA, lateral, oblique, and scaphoid views of the left hand and wrist. FINDINGS: The bones and soft tissues are normal. No fracture. Alignment is anatomic. Joint spaces are maintained. No erosions or soft tissue calcifications. XR/XR hand wrist LT IMPRESSION: Unremarkable examination. Electronically signed by: Hoang Canales MD 06/19/2024 01:20 PM [facility]
--- NOTE | ~2024-06-19 | XR_ITS ---
EXAMINATION: XR ANKLE, RIGHT CLINICAL INFORMATION: Medial/lateral ankle pain status post fall. COMPARISON: Right foot radiographs dated 06/19/2024. TECHNIQUE: AP, lateral, and bilateral oblique views of the right ankle. FINDINGS: No acute fracture or dislocation. The ankle mortise is maintained. No joint space narrowing or marginal osteophytic ridge. No osseous erosion. No talar osteochondral lesion. No abnormal soft tissue calcification. Mild circumferential soft tissue swelling. XR/XR ankle RT min 3V IMPRESSION: Mild circumferential soft tissue swelling without acute osseous abnormality. Electronically signed by: Hoang Canales MD 06/19/2024 01:40 PM [facility]
--- NOTE | ~2024-06-19 | XR_ITS ---
EXAMINATION: XR FOOT, RIGHT CLINICAL INFORMATION: medial foot pain s/p fall COMPARISON: Right foot radiographs dated 02/19/2016. TECHNIQUE: AP, lateral, and oblique views of the right foot. FINDINGS: The bones and soft tissues are normal. No fracture. Alignment is anatomic. Joint spaces are maintained. XR/XR foot RT min 3V IMPRESSION: Unremarkable examination. Electronically signed by: Hoang Canales MD 06/19/2024 01:20 PM [facility]
[2024-06-19 10:02] VITALS: BP 142/88; PULSE 70; O2SAT 97
[2024-06-19 10:13] VITALS: BP 135/67; PULSE 74; RESP 16; TEMP 36.3; O2SAT 100; BMI 39.9
--- NOTE | 2024-06-19 10:23 | ED.FALL ---
HPI - Fall General Chief Complaint: Fall Stated Complaint: FALL DOWN 6-8 STAIRS, R KNEE/FOOT PAIN PER EMS Time Seen by Provider: 06/19/24 10:33 Source: patient, EMS, RN notes reviewed and old records reviewed Mode of arrival: EMS Limitations: no limitations History of Present Illness ED Provider: KALEN ROLDAN PA-C HPI Narrative: 44-year-old female with past medical history significant for asthma, anemia, allergic dermatitis, eczema, lumbar DDD, СВЕТЛАНА, HDL, sarcoidosis presents to the ED today via EMS from home for evaluation status post mechanical fall down stairs prior to arrival in ED this morning. Patient reports descending the stairs in her home when her dress became caught on the railing. She attempted to unhook her dress when she lost her balance and fell down 6-7 stairs. Reports grabbing onto the railing with her left hand and sliding down. Denies head strike or LOC. Not on blood thinners. Reports pain to her left hand/wrist, left hip, right knee and right ankle/foot. States she was unable to stand and ambulate herself. Her father and her son-in-law were home and were able to assist her to the couch. Reports taking 600 mg ibuprofen prior to arrival. Patient was then transferred to the ED via EMS. Denies neck pain, numbness/tingling/weakness in the extremities, saddle anesthesia, bowel or bladder incontinence or retention, headache, dizziness, vision changes. Related Data Home Medications ?Medication ?Instructions ?Recorded ?Confirmed dupilumab 300 mg/2 mL subcutaneous 300 mg subcut Q4W 11/15/21 03/22/24 pen injector ([employer]) alclometasone 0.05 % topical topical PRN 02/17/22 03/22/24 ointment Previous Rx's ?Medication ?Instructions ?Recorded ketoconazole 2 % shampoo 1 appl topical 2XW 14 days #120 mL 08/14/20 loratadine 10 mg tablet 10 mg PO DAILY PRN for itch #30 11/15/21 tabs hydroxyzine HCl 25 mg tablet 25 mg PO QID PRN for itch #120 tabs 02/12/22 tizanidine 4 mg tablet 4 mg PO Q8H PRN for muscle spasm 02/12/22 30 days #90 tabs diphenhydramine HCl 25 mg capsule 50 mg (2 x 25 mg) PO TID PRN 01/03/23 (Benadryl) allergic reaction #30 caps budesonide-formoterol HFA 160 2 puff inhalation BID 30 days 08/17/23 mcg-4.5 mcg/actuation aerosol #10.2 grams inhaler (Symbicort) desonide 0.05 % topical cream 1 appl topical BID 30 days #120 12/08/23 grams albuterol sulfate 90 mcg/actuation 2 puff inhalation Q6-8H PRN 01/12/24 aerosol inhaler shortness of breath or wheezing 30 days #8.5 grams epinephrine 0.3 mg/0.3 mL 0.3 mg (0.3 mL) IM Q15M PRN 01/18/24 injection, auto-injector anaphylaxis #2 ea acetaminophen 325 mg capsule 650 mg (2 x 325 mg) PO Q6H PRN 03/09/24 (Tylenol) fever or pain #90 caps cholecalciferol (vitamin D3) 50 50 mcg PO DAILY 90 days #90 caps 03/09/24 mcg (2,000 unit) capsule semaglutide (weight loss) 1 mg/0.5 1 mg (0.5 mL) subcut QWEEK 4 weeks 05/05/24 mL subcutaneous pen injector #2 mL Allergies Allergy/AdvReac Type Severity Reaction Status Date / Time Sulfa (Sulfonamide Allergy Unknown hives Verified 06/19/24 10:14 Antibiotics) SEASONAL ALLERGIES Allergy Unknown RUNNY NOSE Uncoded 03/22/24 16:38 - ITCHY EYES Review of Systems Review of Systems: Constitutional: No fever, chills, fatigue, night sweats, weight changes ENT/Mouth: No ear pain, hearing loss, nasal congestion, sinus pain, rhinorrhea, sore throat Eyes: No eye pain, swelling, redness, vision changes, discharge Cardio: No chest pain, palpitations, BRIGGS, orthopnea, peripheral edema Pulm: No SOB, cough, sputum, wheezing, dyspnea, hemoptysis GI: No nausea, vomiting, hematemesis, abdominal pain, diarrhea, constipation, hematochezia, melena : No irregular bleeding, dysuria, frequency, urgency, hesitancy, hematuria, flank pain, urinary flow changes, urinary incontinence or retention MSK: No back pain, neck pain, joint pain, myalgias, +left hand/wrist pain, +left hip pain, +right knee/foot/ankle pain Skin: No lesions, rashes Neuro: No weakness, numbness, paresthesias, LOC, dizziness, headache Psych: No anxiety/panic, depression, SI/HI, AH/VH All other systems reviewed and are negative. [facility] Past Medical History Attestation statement: The following information was validated with the patient. Source: old records reviewed and nursing notes reviewed Medical History Thyroid nodule New abnormality on chest x-ray Sarcoidosis Pure hypercholesterolemia Atopic dermatitis СВЕТЛАНА (obstructive sleep apnea) Morbid obesity with BMI of 40.0-44.9, adult Panniculitis Eczema Lumbar degenerative disc disease Allergic dermatitis COVID-19 Anemia Asthma Surgical History Hx of gastric bypass History of cholecystectomy S/P panniculectomy Gastric bypass status for obesity History of abdominal surgery H/O: hysterectomy (~11/20/14) Family History Family History Family/Other Back problem Mother Diabetes Hypertension Hypercholesteremia Depression Brother Gallstones Daughter Asthma Maternal Uncle Cancer Maternal Uncle Throat cancer Maternal Grandmother Diabetes Maternal Grandfather Diabetes Paternal Grandmother Myocardial infarction Social History Social History Housing: Apartment Are you a primary assurance services manager health care to a significant other at home: No Do you presently have visiting nurse or other home services: No Alcohol intake: current Alcohol intake frequency: holidays/special occasions only Patient Tobacco Use Status: Never used Tobacco e-Cigarette/Vaping Use: Never Used Second Hand Smoke Exposure: Yes Advance Directives: No Advance Directives Information Provided: Yes service: No Current occupational status: employed Cognitive needs: No Hearing needs: No Vision needs: Yes Physical Exam Vital Signs: Vital Signs: Last Vital Signs Temp 97.9 F 06/19/24 14:53 Pulse 67 06/19/24 14:53 Resp 14 06/19/24 14:53 BP 137/84 06/19/24 14:53 Pulse Ox 99 06/19/24 14:53 O2 Del Method Room Air 06/19/24 14:53 BMI result Body Mass Index 39.9 vital signs stable General: Well appearing, in no acute distress. Skin: Warm, dry, intact. No rashes or lesions. Head: Normocephalic, atraumatic. No palpable hematoma or skull fracture. perrla. Neck: Supple without LAD. FROM. Cardiac: Chest wall symmetric. RRR Lungs: Normal respiratory effort without accessory muscle use. CTA bilaterally, equal breath sounds bilaterally Abdomen: Soft, non-tender, non-distended. No rebound tenderness or guarding. Positive BS x4. Back: No midline spinous or paraspinal tenderness. No step off deformity. Ext: +diffuse swelling noted to right ankle without deformity. Diffusely tender to palpation without palpable deformity or crepitus. No warmth. Full ROM intact to left ankle with minimal discomfort. Sensation intact. Cap refill less than 2 seconds. 2+ DP/TP pulse intact. small 1cm abrasion noted to anterior lower right leg just distal to the knee. right knee and left wrist w/o deformity, overlying skin changes or tenderness. FROM intact to right knee and left wrist. 2+ radial and ulnar pulse intact. pelvis stable, no pain on palpation of left hip. FROM intact to b/l hips. no overlying skin changes/ deformity. no shortening or abduction. Neuro: AOx3. Normal speech. Strength 5/5 intact throughout. No saddle anesthesia. Sensation intact to light touch. NV intact distally Course Course Course Narrative: X-ray of right foot without fracture. X-ray of right ankle shows mild soft tissue swelling without noted fracture. No dislocation. X-ray left hand/wrist without fracture. X-ray left hip/pelvis without fracture. X-ray left knee without fracture. > workup unremarkable. Patient was treated with oxycodone in the ED today with improvement in pain. Bacitracin applied to abrasion and covered with bandage. Concern for ankle sprain. Patient placed in walking boot and provided with crutches to bear weight as tolerated. Educated on rice therapy. Patient has remained stable throughout ED visit today. Discussed worrisome signs and symptoms and when to return to the ED. All questions answered at this time. Patient is agreeable with disposition and stable for discharge. Medications Administered Discontinued Medications Generic Name Dose Route Start Last Admin Trade Name Freq PRN Reason Stop Dose Admin Bacitracin 1 appl 06/19/24 10:27 06/19/24 11:20 Bacitracin Oint 0.9 Gm Packet TOPICAL 06/19/24 10:28 1 appl ONCE ONE Administration Protocol Oxycodone HCl 5 mg 06/19/24 10:27 06/19/24 11:18 Oxycodone Hcl Immed Release 5 Mg Tablet PO 06/19/24 10:28 5 mg ONCE ONE Administration Procedures Orthopedic Splinting/Casting Injury #1: Side: right Lower Extremity Injury Location: ankle Lower Extremity Immobilizer: boot orthosis Other Orthopedic Equipment: crutches Medical Decision Making Medical Decision Making MDM Narrative: 44-year-old female with past medical history significant for asthma, anemia, allergic dermatitis, eczema, lumbar DDD, СВЕТЛАНА, HDL, sarcoidosis presents to the ED today via EMS from home for evaluation status post mechanical fall down stairs prior to arrival in ED this morning. Exam significant for diffuse swelling noted to right ankle without deformity. Diffusely tender to palpation without palpable deformity or crepitus. No warmth. Full ROM intact to left ankle with minimal discomfort. Sensation intact. Cap refill less than 2 seconds. 2+ DP/TP pulse intact. small 1cm abrasion noted to anterior lower right leg just distal to the knee. right knee and left wrist w/o deformity, overlying skin changes or tenderness. FROM intact to right knee and left wrist. 2+ radial and ulnar pulse intact. pelvis stable, no pain on palpation of left hip. FROM intact to b/l hips. no overlying skin changes/ deformity. no shortening or abduction. Differential diagnosis includes contusion, msk sprain/ strain, fracture, abrasion. Unlikely nv compromise, threat to limb, compartment syndrome. Plan for imaging, pain control, and re-evaluation. Differential Diagnosis Differential Diagnoses: The differential diagnosis associated with the presentation includes as above. Admission/Observation Not indicated. Independent Interpretation I performed an independent interpretation of an: Plain X-Ray Interpretation: X-ray of right foot without fracture. X-ray of right ankle shows mild soft tissue swelling without noted fracture. No dislocation. X-ray left hand/wrist without fracture. X-ray left hip/pelvis without fracture. X-ray left knee without fracture. Radiology Impression Discussion of test interpretation with radiology: I have reviewed the radiologist's reading. Radiologist Impression: EXAMINATION: XR ANKLE, RIGHT CLINICAL INFORMATION: Medial/lateral ankle pain status post fall. COMPARISON: Right foot radiographs dated 06/19/2024. TECHNIQUE: AP, lateral, and bilateral oblique views of the right ankle. FINDINGS: No acute fracture or dislocation. The ankle mortise is maintained. No joint space narrowing or marginal osteophytic ridge. No osseous erosion. No talar osteochondral lesion. No abnormal soft tissue calcification. Mild circumferential soft tissue swelling. XR/XR ankle RT min 3V IMPRESSION: Mild circumferential soft tissue swelling without acute osseous abnormality. Electronically signed by: Hoang Canales MD 06/19/2024 01:40 PM EST Workstation: [id number] EXAMINATION: XR FOOT, RIGHT CLINICAL INFORMATION: medial foot pain s/p fall COMPARISON: Right foot radiographs dated 02/19/2016. TECHNIQUE: AP, lateral, and oblique views of the right foot. FINDINGS: The bones and soft tissues are normal. No fracture. Alignment is anatomic. Joint spaces are maintained. XR/XR foot RT min 3V IMPRESSION: Unremarkable examination. Electronically signed by: Hoang Canales MD 06/19/2024 01:20 PM EST Workstation: [id number] EXAMINATION: XR HAND/WRIST, LEFT CLINICAL INFORMATION: diffuse wrist pain s/p fall COMPARISON: None available. TECHNIQUE: PA, lateral, oblique, and scaphoid views of the left hand and wrist. FINDINGS: The bones and soft tissues are normal. No fracture. Alignment is anatomic. Joint spaces are maintained. No erosions or soft tissue calcifications. XR/XR hand wrist LT IMPRESSION: Unremarkable examination. Electronically signed by: Hoang Canales MD 06/19/2024 01:20 PM EST RP EXAMINATION: XR HIP, LEFT CLINICAL INFORMATION: Left hip pain, status post fall. COMPARISON: Sacroiliac joint radiographs dated 01/02/2022. TECHNIQUE: AP view of the pelvis as well as AP and frog-leg lateral views of the left hip. FINDINGS: No acute fracture or dislocation. No hip joint space narrowing or marginal osteophytes. Mild left sacroiliac joint space narrowing with tiny marginal osteophytes. No osseous erosion. No abnormal soft tissue calcification. Surgical coils consistent with prior hernia repair. XR/XR hip LT w PEL1V IMPRESSION: 1. No acute fracture or dislocation. 2. Mild left sacroiliac joint osteoarthritis. Electronically signed by: Hoang Canales MD 06/19/2024 01:39 PM EST RP EXAMINATION: XR KNEE, RIGHT CLINICAL INFORMATION: fall, R knee pain, abrasion, ttp medial aspect COMPARISON: None available. TECHNIQUE: Four views of the right knee. FINDINGS: No fracture or joint effusion. Alignment is anatomic. Joint spaces are maintained. No abnormal soft tissue calcification. XR/XR knee RT 4V IMPRESSION: Unremarkable examination. Electronically signed by: Hoang Canales MD 06/19/2024 01:22 PM EST RP Independent Historian Clinical information obtained from an independent historian. History obtained from or confirmed by: Other (father) External Record Review External record reviewed: Inpatient record Prescription Management I considered prescription management with: Pain Medication Social Determinants Patient?s care significantly limited by Social Determinants of Health including: Other Social Determinant of Health Critical Care Time Critical Care Time Critical Care Time: No Discharge Plan Discharge Clinical Impression: Left ankle sprain, Fall (on) (from) other stairs and steps, initial encounter Patient Disposition: Home, Self-Care Instructions: Crutch Instructions (ED), R.I.C.E. Treatment (ED), Walking Boot (ED) Additional Instructions: You were evaluated in the ED today following a fall down your stairs. The x-rays of your left hand/wrist, hip/pelvis, right knee, and right ankle/foot are all normal. There are no fractures. We have placed your right foot/ankle in a walking boot. You may bear weight as tolerated over the next week. You have also been provided with crutches. Utilize rice therapy - rest, ice, compress and elevate the ankle to help with swelling and pain. I recommend you take 600mg ibuprofen every 6 hours or Tylenol 650mg every 6 hours as needed for pain. If needed, you can alternate these medications so that you take one medication every 3 hours. For example, at noon take ibuprofen, then at 3pm take Tylenol, then at 6pm take ibuprofen. If pain continues, you may follow-up with your primary care provider or the orthopedic radiologic technologist. You have been provided with their number. Call them to establish care. They will not call you. Return with any new or worsening symptoms. In the case of an emergency call 911. Prescriptions: No Action hydroxyzine HCl 25 mg tablet 25 mg PO QID PRN (Reason: for itch) Qty: 120 1RF tizanidine 4 mg tablet 4 mg PO Q8H PRN (Reason: for muscle spasm) 30 Days Qty: 90 1RF desonide 0.05 % cream 1 appl topical BID 30 Days Qty: 120 1RF albuterol sulfate 90 mcg/actuation HFA aerosol inhaler 2 puff inhalation Q6-8H PRN (Reason: shortness of breath or wheezing) 30 Days Qty: 8.5 5RF epinephrine 0.3 mg/0.3 mL auto-injector 0.3 mg IM Q15M PRN (Reason: anaphylaxis) Qty: 2 0RF Rx Instructions: for 3 doses acetaminophen [Tylenol] 325 mg capsule 650 mg PO Q6H PRN (Reason: fever or pain) Qty: 90 2RF cholecalciferol (vitamin D3) 50 mcg (2,000 unit) capsule 50 mcg PO DAILY 90 Days Qty: 90 3RF semaglutide (weight loss) 1 mg/0.5 mL pen injector 1 mg subcut QWEEK 28 Days Qty: 2 0RF diphenhydramine HCl [Benadryl] 25 mg capsule 50 mg PO TID PRN (Reason: allergic reaction) Qty: 30 0RF ketoconazole 2 % shampoo 1 appl topical 2XW 14 Days Qty: 120 0RF loratadine 10 mg tablet 10 mg PO DAILY PRN (Reason: for itch) Qty: 30 0RF Dupixent Pen 300 mg/2 mL pen injector 300 mg subcut Q4W alclometasone 0.05 % ointment topical PRN budesonide-formoterol [Symbicort] 160-4.5 mcg/actuation HFA aerosol inhaler 2 puff inhalation BID 30 Days Qty: 10.2 11RF Referrals: Lucas Washington MD [Primary Care Provider] - Stand Alone Forms: Work/School Release Interventions: ED Discharge Assessment Last Done: 06/19/24 14:53 Discharge Date/Time: 06/19/24 14:54 Print Language: Lithuanian
[2024-06-19] MEDS: oxyCODONE HCl Immed Release 5 MG TABLET PO (11:18)
[2024-06-19] MEDS: Bacitracin Oint 0.9 GM PACKET 1 APPL TOPICAL (11:20)
[2024-06-19 12:04] VITALS: BP 137/84; PULSE 67; RESP 14; TEMP 36.6; O2SAT 99
[2024-06-19 14:53] VITALS: BP 137/84; PULSE 67; RESP 14; TEMP 36.6; O2SAT 99
== END 2024-06-19 14:54 | disposition home or self-care (01) ==
PROVIDERS: Emergency Provider Emergency Medicine; PCP Internal Medicine
DX: S93.402A Sprain of unspecified ligament of left ankle, initial encounter (principal); S69.92XA Unspecified injury of left wrist, hand and finger(s), initial encounter; M25.571 Pain in right ankle and joints of right foot; M25.552 Pain in left hip; M25.532 Pain in left wrist; M25.561 Pain in right knee; W10.9XXA Fall (on) (from) unspecified stairs and steps, initial encounter; Y93.89 Activity, other specified; Y92.098 Other place in other non-institutional residence as the place of occurrence of the external cause; Y99.8 Other external cause status
CPT/HCPCS: 73110; 73130; 73502; 73564; 73610; 73630; 99283; 99284

== ENCOUNTER 2024-08-10 12:14 | Outpatient (AMB) | payer OTHER, SELFPAY ==
[2024-08-10 12:28] VITALS: BP 122/86; PULSE 85; O2SAT 99; BMI 43.8
--- NOTE | 2024-08-10 12:28 | A.OFFPC_ITS ---
Vital Signs 08/10/24 12:28 Height 5 ft 3 in Weight 247 lb 4 oz BMI 43.8 BP 122/86 Blood Pressure Location Lt brachial Position Sitting Pulse 85 Pulse Source Pulse Oximeter Pulse Oximetry (%) 99 Oxygen Delivery Method Room Air Intake Visit Reasons: 4 month f/u Label Rewinder Required: No Accompanied by: Self / Same As Patient Allergies Sulfa (Sulfonamide Antibiotics) Allergy (Unknown, Verified 08/10/24 12:55) hives SEASONAL ALLERGIES Allergy (Unknown, Uncoded 08/10/24 12:55) RUNNY NOSE - ITCHY EYES Medication List - Last Reconciled 08/10/24 by Lucas Washington MD acetaminophen (Tylenol) 650 mg (2 x 325 mg) PO Q6H PRN albuterol sulfate 90 mcg/actuation 2 puffs inhalation Q6-8H PRN 30 days alclometasone 0.05% topical PRN budesonide-formoterol 160-4.5 mcg/actuation (Symbicort) 2 puffs inhalation BID 30 days cholecalciferol (vitamin D3) 50 mcg PO DAILY 90 days desonide 0.05% 1 appl topical BID 30 days diphenhydramine HCl (Benadryl) 50 mg (2 x 25 mg) PO TID PRN dupilumab (Dupixent) 300 mg subcut Q4W epinephrine 0.3 mg (0.3 mL) IM Q15M PRN hydroxyzine HCl 25 mg PO QID PRN ketoconazole 2% 1 appl topical 2XW 14 days loratadine 10 mg PO DAILY PRN semaglutide (weight loss) 1 mg (0.5 mL) subcut QWEEK 4 weeks tizanidine 4 mg PO Q8H PRN 30 days Tobacco use date assessed: 08/10/24 Dental Screening Dental Screen Date: 08/10/24 Did you have a dental visit in the last 12 months?: Yes Did you have a dental problem in the last 6 months where you did not have access to dental care?: No Was dental information given to patient?: Patient has dentist HPI 4 month f/u HPI Details Patient comes in today for her follow-up visit Relates that she fell down several steps on her stairs at home about 6 weeks ago but did not hit her head or suffered any LOC Recalls that she was coming down the stairs back on 06/19/2024 when her dress got caught on the railing States that she was trying to unhook her dress when she lost her balance and fell down about 6 to 7 steps Relates that she was able to grab onto the railing with her left hand and managed to slide down instead States that she was experiencing increased pain in her left hand/wrist, left hip, right knee and right ankle/foot at the time after she fell and had to be helped up by her father and other family members and she eventually was brought to the ER for examination She also reportedly had x-rays of the right foot, right ankle, left hand/wrist, left hip/pelvis and left knee done, all of which came back negative for fractures or acute injuries Patient states that it has been several weeks now and she is currently still experiencing increased pain in her right ankle and right knee as well as over the left wrist States that she can feel something moving in the bones near her left wrist area recently and she does not recall that her left wrist was actually x-rayed when she was at the ER - I have reassured her that there was an x-ray done on her left wrist back then States that she feels okay otherwise She denies any headaches or dizziness Denies any chest pains, no increased shortness of breath No nausea/vomiting, no abdominal pain No change in bowel habits noted Adds that she was seen a few months ago by the breast surgeon that we referred her to a year or so prior regarding breast reduction surgery as her large breasts were allegedly contributing significantly to her chronic neck and back pain and discomfort States that she was advised that she needed to lose at least 20 pounds before they can get insurance to approve her surgery She was reportedly doing well with her weight loss on Wegovy for a few weeks but her insurance recently declined to continue covering her Rx when it was increased to the 1 mg dosee [facility] Medical History Thyroid nodule New abnormality on chest x-ray Sarcoidosis Pure hypercholesterolemia Atopic dermatitis СВЕТЛАНА (obstructive sleep apnea) Morbid obesity with BMI of 40.0-44.9, adult Panniculitis Eczema Lumbar degenerative disc disease Allergic dermatitis COVID-19 Anemia Asthma Surgical History Hx of gastric bypass History of cholecystectomy S/P panniculectomy Gastric bypass status for obesity History of abdominal surgery H/O: hysterectomy (~11/20/14) Family History Family/Other Back problem Mother Diabetes Hypertension Hypercholesteremia Depression Brother Gallstones Daughter Asthma Maternal Uncle Cancer Maternal Uncle Throat cancer Maternal Grandmother Diabetes Maternal Grandfather Diabetes Paternal Grandmother Myocardial infarction Social History Housing: Apartment Are you a primary lawn care technician to a significant other at home: No Do you presently have visiting nurse or other home services: No Alcohol intake: current Alcohol intake frequency: holidays/special occasions only Patient Tobacco Use Status: Never used Tobacco e-Cigarette/Vaping Use: Never Used Second Hand Smoke Exposure: Yes service: No Current occupational status: employed Cognitive needs: No Hearing needs: No Vision needs: Yes Questionnaire PHQ-9 Over the last 2 weeks, how often have you been bothered by any of the following problems? 1. Little interest or pleasure in doing things: not at all 2. Feeling down, depressed, or hopeless: not at all 3. Trouble falling or staying asleep, or sleeping too much: not at all 4. Feeling tired or having little energy: not at all 5. Poor appetite or overeating: not at all 6. Feeling bad about yourself - or that you are a failure or have let yourself or your family down: not at all 7. Trouble concentrating on things, such as reading the newspaper or watching television: not at all 8. Moving or speaking so slowly that other people could have noticed. Or the opposite - being so fidgety or restless that you have been moving around a lot more than usual: not at all 9. Thoughts that you would be better off or of hurting yourself in some way: not at all Total score: 0 Depression Screening Interpretation: Negative Depression Screening Done: Yes 36588 - PHQ-9 Billing: Yes Source: Developed by Drs. Neil Dodd, Karina Avalos, Steve Quevedo and colleagues, with an educational radha from [employer]. Thrive Questionnaire Date Thrive assessed: 08/10/24 I am a: Patient What is your living situation today?: I have a steady place to live Within the past 12 months, did the food you bought not last and you didn't have the money to get more?: Never true Within the past 12 months, did you worry whether your food would run out before you got money to buy more?: Never true Do you have trouble paying for medicines?: No Do you have trouble getting transportation to medical appointments?: No Do you have trouble paying your heating and electricity bill?: No Do you have trouble taking care of your child, family member or friend?: No Do you have trouble with day-to-day activities such as bathing, preparing meals, shopping, managing finances, etc.?: No Are you currently unemployed and looking for a job?: No Are you interested in more education?: No Please select the resources that you would like help with: None Currently or been in a relationship where the following occur: No concerns reported THRIVE Score: 0 AUDIT C Alcohol Use Questionnaire (AUDIT-C) 1. How often do you have a drink containing alcohol?: Monthly or less 2. How many drinks containing alcohol do you have on a typical day when you are drinking?: 1 or 2 3. How often do you have six or more drinks on one occasion?: Never Total Score: 1 Score Reviewed/Action Taken: Yes CAITY-7 AMB Questionnaire CAITY-7 Date CAITY - 7 assessed: 08/10/24 Feeling nervous, anxious, or on edge: 0 = Not at all Not being able to stop or control worryin = Not at all Worrying too much about different things: 0 = Not at all Trouble relaxin = Not at all Being so restless that it is hard to sit still: 0 = Not at all Becoming easily annoyed or irritable: 0 = Not at all Feeling afraid as if something awful might happen: 0 = Not at all Total CAITY-7 score (0-4 normal; 5-9 mild; 10-14 moderate; 15-21 severe): 0 Source: Developed by Drs. Neil Dodd, Karina Avalos, Steve Quevedo and colleagues, with an educational radha from [employer]. Review of Systems Const Denies chills, Reports fatigue, Denies fever(s) and Denies headache(s) ENT Denies dysphagia, Denies dizziness, Denies otalgia, Denies headache(s), Reports neck pain (recurrent), Denies odynophagia and Denies sore throat Card Denies chest pain, Denies palpitations and Denies dyspnea Resp Denies chest congestion, Denies cough and Denies dyspnea GI Denies abdominal pain, Denies constipation, Denies dysphagia, Denies heartburn, Denies diarrhea, Denies nausea, Denies odynophagia and Denies vomiting Denies difficulty voiding, Denies nocturia, Denies dysuria and Denies urinary urgency Musc Reports back pain (recurrent), Reports arthralgias (increased over the L wrist, R knee and R ankle for the past few weeks) and Reports neck pain (recurrent) Skin/Breast Denies rash Neuro Denies dizziness and Denies headache(s) Endo Reports fatigue and Denies palpitations Physical exam (Primary Care) Vital Signs: Last Vital Signs Pulse 85 08/10/24 12:28 BP 122/86 08/10/24 12:28 Pulse Ox 99 08/10/24 12:28 Oxygen Delivery Method Room Air 08/10/24 12:28 BMI result Body Mass Index 43.8 Tobacco/Smoking Status: Tobacco use Status Tobacco use date assessed 08/10/24 08/10/24 12:32 Patient Tobacco Use Status Never used Tobacco 08/10/24 12:32 e-Cigarette/Vaping Use Never Used 08/10/24 12:32 PHQ-9: PHQ-9 Score PHQ-9: Total score 0 08/10/24 21:45 Depression Screening Interpretation: Negative Thrive Assessment: Date of Thrive Assessment Date Thrive assessed 08/10/24 08/10/24 12:32 Currently or been in a relationship where the following occur: No concerns reported Const General: no acute distress and alert HENMT Ears: TM's normal bilaterally and EAC's normal Throat: Yes posterior oropharynx normal and Yes tonsils normal (no TP congestion) Neck Neck: No lymphadenopathy Thyroid: Thyroid normal Resp Auscultation: clear to auscultation bilaterally, no rales and no wheezes Cardio Rate: regular rate Rhythm: regular rhythm Heart sounds: no murmurs GI Palpation (GI): Soft to palpation and nontender Auscultation: normal bowel sounds General: Yes no CVA tenderness Back/Spine/Pelvis Back: no CVA tenderness Cervical Spine: cervical muscular tenderness and No Cervical spine tenderness Thoracic/Lumbar Spine: paraspinal muscle tenderness bilaterally in the upper thoracic and lumbar spinal tenderness (mild) Skin Rashes: no rashes Extrem General: Yes no clubbing, cyanosis or edema Left upper extremity: wrist ((+) tenderness) Right lower extremity: knee Details: tenderness; no swelling and ankle Details: tenderness Location: of the medial malleolus; no swelling Coding Level of Care Code Est Pt Level 4 (35317) Diagnoses Pure hypercholesterolemia E78.00 Mild intermittent asthma without complication J45.20 Asthma complication type: uncomplicated Asthma persistence: intermittent Asthma severity: mild Sarcoidosis D86.9 Thyroid nodule E04.1 Degeneration of intervertebral disc of lumbar region with discogenic back pain M51.360 Disc-related pain type: discogenic back pain only Right knee pain, unspecified chronicity M25.561 Chronicity: unspecified Right ankle pain, unspecified chronicity M25.571 Chronicity: unspecified Left wrist pain M25.532 СВЕТЛАНА (obstructive sleep apnea) G47.33 Atopic dermatitis, unspecified type L20.9 Atopic dermatitis type: unspecified Macromastia N62 Obesity, morbid, BMI 40.0-49.9 E66.01 Additional Codes PHQ-9 - 84245 - PHQ-9 Billing: Yes ([id number]) Assessment & Plan Assessment & Plan (1) Pure hypercholesterolemia: Code(s): E78.00 - Pure hypercholesterolemia, unspecified Category: Medical Plan: Patient again has not been able to get her follow-up labs done since her last visit in March 2024 Reinforced low cholesterol diet Her cholesterol level was significantly elevated back in 2009 but she has been able to get them improved since then with diet modification alone, with her most recent LDL cholesterol level at 79 mg/dl a year ago on 07/23/2023 Have instructed patient to go and get her fasting labs done [facility], and will recheck her fasting lipids as well (2) Asthma: Code(s): J45.909 - Unspecified asthma, uncomplicated Category: Medical Qualifiers: Asthma complication type: uncomplicated Asthma persistence: intermittent Asthma severity: mild Qualified Code(s): J45.20 - Mild intermittent asthma, uncomplicated Plan: Stable/controlled Continue Symbicort 160-4.5 mcg 2 inhalations BID and Albuterol HFA 2 inhalations every 6 hours as needed States that her asthma and eczema have both improved a lot with less flare ups since she was started on Dupixent about 1 to 2 years ago - continue Dupixent 300 mg inj SQ every 4 weeks (3) Sarcoidosis: Code(s): D86.9 - Sarcoidosis, unspecified Category: Medical Plan: Currently appears stable Patient was initially advised by Dr. Comer last year that the skin lesions they biopsied from her turned out to be sarcoid lesions and recommended that she see pulmonary for further evaluation and management of sarcoidosis Labs done last year revealed elevated ESR and CRP Chest x-rays done revealed (+) prominence of the pulmonary hilum suggestive of of sarcoidosis Chest CT done in September 2023 revealed (+) numerous enlarged mediastinal lymph nodes noted. Evaluation for hilar lymphadenopathy is suboptimal given lack of IV contrast, however, there is suspicion of underlying enlarged hilar lymph nodes bilaterally There are also several bilateral pulmonary nodules noted, the largest measuring 7 mm She is now following up with [facility] Pulmonary regularly for her sarcoidosis (4) Thyroid nodule: Code(s): E04.1 - Nontoxic single thyroid nodule Category: Medical Plan: There is a partially visualized right thyroid nodule measuring at least 2.8 cm when patient had her chest CT done back in September 2023 She was sent for a thyroid US by pulmonary but she missed her appointment then as she developed COVID at the time This was reordered at her last visit and she eventually her her thyroid US done in April 2024, which revealed (+) complex anechoic cyst with septations at the mid pole of the right lobe. There are also multiple small lesions which are benign with TI-Rads category less than 2 Patient's serum TSH was normal when it was last checked in July 2023; will recheck this again with her ordered labs Will go ahead and refer patient to endocrinology for further evaluation and management (5) Lumbar degenerative disc disease: Code(s): M51.36 - Other intervertebral disc degeneration, lumbar region Category: Medical Qualifiers: Disc-related pain type: discogenic back pain only Qualified Code(s): M51.360 - Other intervertebral disc degeneration, lumbar region with discogenic back pain only Plan: Reinforced activity and weight-lifting restrictions Lumbar spine MRI done in May 2020 revealed the followin. There are 4 nonrib-bearing lumbar-type vertebral bodies with sacralization of L5.? 2. L3-L4 mild broad-based disc bulge with a superimposed shallow right extraforaminal disc protrusion which contacts the exiting right L3 nerve root. Bilateral facet arthropathy and thickening of the ligamentum flavum causing minimal central canal as well as [id number] right and mild left neural foraminal stenosis. 3. L4-L5 broad-based disc bulge, slightly asymmetric to the right with posterior annular fissuring. This abuts the traversing right L5 nerve root within the lateral recess. Bilateral facet arthropathy with mild bilateral neural foraminal stenosis. Repeat lumbar spine x-rays done in May 2023 revealed (+) mild spondylosis with findings similar to those seen on her MRI done a few years ago Follow up with Pain Management as scheduled (6) Right knee pain: Code(s): M25.561 - Pain in right knee Category: Medical Qualifiers: Chronicity: unspecified Qualified Code(s): M25.561 - Pain in right knee Plan: Her right knee x-rays done at the ER last month after she fell down some stairs at home came out negative for acute fractures/injuries but (+) soft tissue swelling As she continues to complain of right knee pain with no significant improvement more than 6 weeks later, will send her for repeat right knee x-rays for further evaluation (7) Right ankle pain: Code(s): M25.571 - Pain in right ankle and joints of right foot Category: Medical Qualifiers: Chronicity: unspecified Qualified Code(s): M25.571 - Pain in right ankle and joints of right foot Plan: Will send patient as well for repeat x-rays of the right ankle for further evaluation Her initial x-rays done last month came out negative (8) Left wrist pain: Code(s): M25.532 - Pain in left wrist Category: Medical Plan: Will send patient also for left wrist x-rays for further evaluation (9) СВЕТЛАНА (obstructive sleep apnea): Code(s): G47.33 - Obstructive sleep apnea (adult) (pediatric) Category: Medical Plan: Continue using her CPAP device when sleeping at night daily Follow up with Sleep Medicine as scheduled (10) Atopic dermatitis: Code(s): L20.9 - Atopic dermatitis, unspecified Category: Medical Qualifiers: Atopic dermatitis type: unspecified Qualified Code(s): L20.9 - Atopic dermatitis, unspecified Plan: Stable - continue Desonide 0.05% cream BID PRN Patient states that her eczema has improved significantly since she was started on Dupixent a couple of years ago Follow up with dermatology as scheduled (11) Macromastia: Code(s): N62 - Hypertrophy of breast Category: Medical Plan: She was previously referred for consideration for breast reduction surgery but has reportedly been advised that she will only be able to undergo breast reduction surgery IF she is able to lose at least 10 to 20 pounds, per insurance requirement(s) She was subsequently referred to another plastic surgeon for consideration for reduction mammoplasty and panniculectomy, per her request, and she has been advised of the same conditions (12) Obesity, morbid, BMI 40.0-49.9: Comment: 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 08/02/2019 Code(s): E66.01 - Morbid (severe) obesity due to excess calories Category: Medical Plan: Reinforced diet/exercise as tolerated/lose weight She has been referred to weight management here at [facility] for further evaluation and to explore other aspects as patient has failed bariatric surgery - she has reportedly not lost much weight despite her gastric bypass surgery and subsequent conversion surgery She was previously tried on Metformin 500 mg QD, which she states did not help at all We eventually started her on Wegovy and she was able to lose a good amount of weight and appears to be doing well on it but her insurance recently inexplicably declined to continue covering her Rx when her dose was increased to 1 mg Will try to switch her over to Ozempic as this could be a formulary issue Plan Follow up in 4 months Orders: Orders XR wrist LT min 3V Today M25.532 - Pain in left wrist XR ankle RT min 3V Today M25.571 - Pain in right ankle and joints of right foot Complete Blood Count Auto Diff Today D64.9 - Anemia, unspecified Hemoglobin A1c Today E11.9 - Type 2 diabetes mellitus without complications XR knee RT 4V Today M25.561 - Pain in right knee Lipid Panel Today E78.00 - Pure hypercholesterolemia, unspecified Comprehensive [place]. Panel Fast Today E78.00 - Pure hypercholesterolemia, unspecified UA CC w/rflx Micro + Cult Today R30.0 - Dysuria Vitamin D 25-OH Total Today E55.9 - Vitamin D deficiency, unspecified Free T4 (Free Thyroxine) Today E04.1 - Nontoxic single thyroid nodule Thyroid Stimulating Hormone Today E04.1 - Nontoxic single thyroid nodule Referrals Endocrinology Referral E04.1 - Nontoxic single thyroid nodule Medications: Refilled semaglutide (weight loss) 1 mg (0.5 mL) subcut QWEEK 4 weeks 2 mL 0RF E66.01 - Morbid (severe) obesity due to excess calories, Z68.41 - Body mass index [BMI] 40.0-44.9, adult, Z98.84 - Bariatric surgery status
--- OUTSIDE RECORDS SUMMARY | 2024-08-10 16:05 | XMS_ITS | Encounter Summary ---
Author Organization Formerly [facility] Address [facility] [place] [address] Care Team Providers Care Patient Registration Rep Name Role Phone Lucas Washington MD Primary Care Provider Julian fernández Encounter Details Date Type Department Care Team Description 06/25/2017 Release of Information Medical Records [address] [place] [id number] Abstract, Provider Social History Tobacco Use Types Packs/Day Years Used Date Smoking Tobacco: Never Assessed Alcohol Habits Answer Date Recorded How often do you have a drink containing alcohol ? Monthly or less 07/20/2019 How many drinks containing a lcohol do you have on a typical day when you are drinking? 1 or 2 07/20/2019 How often do you have six or more drinks on one occasion? Not asked Sex Assigned at Date Recorded Not on file documented as of this encounter Plan of Treatment Not on file documented as of this encounter Visit Diagnoses Not on filedocumented in this encounter Care Teams Patient Registration Rep Relationship Specialty Start Date End Date Lucas Washington MD PCP - General Internal Medicine 05/17/17 documented as of this encounter
--- OUTSIDE RECORDS SUMMARY | 2024-08-10 16:05 | XMS_ITS | Encounter Summary ---
Author Organization [facility] Address [address] [place] [address] Care Team Providers Care Osteopathic Medicine Teacher Name Role Phone Lucas Washington MD Primary Care Provider Julian fernández Encounter Details Date Type Department Care Team Description 02/24/2019 Telephone General Surgery - [place] [address] [facility] [address] [place] [address] Sudhir Hayward MD [address] [place] [address] [address] [place] [address] Social History Tobacco Use Types Packs/Day Years Used Date Smoking Tobacco: Never Smokeless Tobacco: Never Alcohol Use Standard Drinks/Week Comments Yes 0 (1 standard drink = 0.6 oz pur e alcohol) social Alcohol Habits Answer Date Recorded How often [...] on file documented as of this encounter Miscellaneous Notes * Telephone Encounter - Elinor Enriquez - 02/24/2019 12:28 PM EDT Booked pt with Dr Siddiqi for Psych consult-- 03/23 @ 2pm- gave pt paper with address and phone # with appt information documented in this encounter Plan of Treatment Not on file documented as of this encounter Visit Diagnoses Not on filedocumented in this encounter Care Teams Osteopathic Medicine Teacher Relationship Specialty Start Date End Date Lucas Washington MD PCP - General Internal Medicine 05/17/17 documented as of this encounter
--- OUTSIDE RECORDS SUMMARY | 2024-08-10 16:05 | XMS_ITS | Clinical Summary ---
Author Organization [facility] Address [id number] [place] [phone] Care Team Providers Care Wool Hat Forming Machine Tender Name Role Phone Lucas Washington MD Primary Care Provider Surgical History Surgery Date Site/Laterality Comments HERNIA REPAIR 07/20/2017 PROCEDURE: HISTORICAL HERNIA REPAIR/ASHISH; COMMENT: Incisional hernia repair GASTRIC BYPASS 03/2012 PROCEDURE: GASTRIC BYPASS FOR OBESIT BREAST LUMPECTOMY 2002 Left PROCEDURE: ---- BREAST LUMP BIOPSY ----; COMMENT: benign cyst CHOLECYSTECTOMY 03/08/2013 PROCEDURE: HISTORICAL CHOLECYSTECTOMY SECTION 04/03/2014 PROCEDURE: HISTORICAL TUBAL LIGATION 04/03/2014 PROCEDURE: HISTORICAL TUBAL LIGATION OTHER SURGICAL HISTORY 2012 PROCEDURE: CERVICAL LEEP CONE BIOPSY [facility] PATHOLOGY EX HYSTERECTOMY 11/20/2014 PROCEDURE: HISTORICAL HYSTERECTOMY OTHER SURGICAL HISTORY 03/2017 PROCEDURE: HISTORICAL PANNICULECTOMY Medical History Medical History Date Comments Asthma DX:Asthma History of bariatric surgery 07/20/2019 DX: History of bariatric surgery; COMMENT: 2011 gastric bypass Allergic rhinitis 07/20/2019 DX:Allergic rh initis Migraine with aura 07/20/2019 DX:Migraine w ith aura Class 3 severe obesity due t o excess calories without serious comorbidity with body mass index (BMI) of 40.0 to 44.9 in adult ([facility]) 02/28/2019 DX:Class 3 severe obesity du e to excess calories without serious comorbidity with body mass index (BMI) of 40.0 to 44.9 in adult ([facility]) Vitamin D deficiency 01/23/2019 DX:Vitamin D deficiency Chronic dermatitis 07/20/2019 DX:Chronic de rmatitis Iron deficiency 01/25/2019 DX:Iron deficien cy Family History Medical History Relation Name Comments Other: Gallstones Brother Asthma Daughter Other: Back Problems Father Diabetes Maternal Grandfather Diabetes Maternal Grandmother Diabetes Mother Hypertension, H yperlipidemia, Depression Diabetes Mother's side 1 Aunt Throat cancer Mother's side 2 Uncle, anot her Uncle had cancer as well- unknown type Heart attack Paternal Grandmother Relation Name Status Comments Brother Daughter Father Maternal Grandfather Maternal Grandmother Mother Mother's side 1 Mother's side 2 Paternal Grandmother Social History Tobacco Use Types Packs/Day Years Used Date Smoking Tobacco: Never Smokeless Tobacco: Never Alcohol Use Standard Drinks/Week Comments Yes 0 (1 standard drink = 0.6 oz pur e alcohol) Sex and Gender Information Value Date Recorded Sex Assigned at Not on file Gender Identity Not on file Sexual Orientation Not on file Obstetrics History Plan of Treatment Health Maintenance Due Date Last Done Comments Breast Cancer Screening 1980 DTaP,Tdap,and Td Vaccines (1 - Tdap) 1999 Hepatitis B Vaccines (1 of 3 - 19+ 3-dose series) 1999 Cervical Cancer Screening: P ap Smear 2001 COVID-19 Vaccine (2023-2 5 season) 2024 Influenza Vaccine (#1) 2024 HIB Vaccines Aged Out No longer eligi ble based on patient's age to complete this topic HPV Vaccines Aged Out No longer eligi ble based on patient's age to complete this topic Hepatitis A Vaccines Aged Out No long er eligible based on patient's age to complete this topic IPV Vaccines Aged Out No longer eligi ble based on patient's age to complete this topic MMR Vaccines Aged Out No longer eligi ble based on patient's age to complete this topic Meningococcal ACWY Vaccine Aged Out N o longer eligible based on patient's age to complete this topic Pneumococcal Vaccine: Pediat rics (0 to 5 Years) and At-Risk Patients (6 to 64 Years) Aged Out No longer eligible b ased on patient's age to complete this topic RSV Immunization Patients Un destin 20 months Aged Out No longer eligible b ased on patient's age to complete this topic Varicella Vaccines Aged Out No longer eligible based on patient's age to complete this topic Care Teams Wool Hat Forming Machine Tender Relationship Specialty Start Date End Date Lucas Washington MD [address] [place] [address] [address] [place], [place] PCP - General Internal Medicine 05/17/17
--- OUTSIDE RECORDS SUMMARY | 2024-08-10 16:05 | XMS_ITS | Encounter Summary ---
Author Organization [facility] Address [address] [place] [address] Care Team Providers Care Janitorial Account Manager Name Role Phone Lucas Washington MD Primary Care Provider Unava ilable Reason for Visit * Reason Onset Date Comments Work note 07/13/2017 Dr Max Encounter Details Date Type Department Care Team Description 07/13/2017 Telephone General Surgery - [address] [place] [phone] Crow Max MD [address] [place] [address] [phone] Work note (Dr Max) Social History Tobacco Use Types Packs/Day Years [...] encounter Miscellaneous Notes * Telephone Encounter - Viky Vallecillo M.A. - 07/13/2017 1:50 PM EST Left message for pt * Telephone Encounter - Sue Mulligan - 07/13/2017 1:38 PM EST Work note is for: Out of Work Note Has patient been seen for the reason they were absent from work? Yes For what medical reason was/is patient out of work?: hernia If Yes, by whom?: Dr Max Date patient seen: pt will have surgery on 07/20/17 and she does not have a lot of time to be out of work, wants to know if she can return to work after five days ? What dates does the patient need the note to cover: Beginning date: 07/20/17 End Date: 07/25/17 If note for return to work, what is return date: 07/26/17 If note is to return to work, are there restrictions? No. 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
--- OUTSIDE RECORDS SUMMARY | 2024-08-10 16:05 | XMS_ITS | Encounter Summary ---
Author Organization [facility] Address [facility] [place] [address] Care Team Providers Care System Administration Manager Name Role Phone Lucas Washington MD Primary Care Provider Julian fernández Encounter Details Date Type Department Care Team Description 05/17/2017 Lcac Radar Operator/Navigator Report Medical Records [address] [place] [id number] Sarah Garcia Social History Tobacco Use Types Packs/Day Years [...] on filedocumented in this encounter Care Teams System Administration Manager Relationship Specialty Start Date End Date Lucas Washington MD PCP - General Internal Medicine 05/17/17 documented as of this encounter
--- OUTSIDE RECORDS SUMMARY | 2024-08-10 16:05 | XMS_ITS | Encounter Summary ---
Author Organization [facility] Address [facility] [place] [address] Care Team Providers Care Carpentry Professional Name Role Phone Lucas Washington MD Primary Care Provider Julian fernández Encounter Details Date Type Department Care Team Description 09/03/2020 Old Medical Records Medical Records [address] [place] [id number] Abstract, Provider Social History Tobacco Use Types [...] on filedocumented in this encounter Care Teams Carpentry Professional Relationship Specialty Start Date End Date Lucas Washington MD PCP - General Internal Medicine 05/17/17 documented as of this encounter
== END 2024-08-10 13:08 | disposition home or self-care (01) ==
PROVIDERS: PCP Internal Medicine; Visit Provider Internal Medicine
DX: E78.00 Pure hypercholesterolemia, unspecified (principal); E66.01 Morbid (severe) obesity due to excess calories; D86.9 Sarcoidosis, unspecified; Z68.41 Body mass index [BMI] 40.0-44.9, adult; J45.20 Mild intermittent asthma, uncomplicated; E04.1 Nontoxic single thyroid nodule; M51.360 Other intervertebral disc degeneration, lumbar region with discogenic back pain only; M25.561 Pain in right knee; M25.571 Pain in right ankle and joints of right foot; M25.532 Pain in left wrist; G47.33 Obstructive sleep apnea (adult) (pediatric); L20.9 Atopic dermatitis, unspecified; N62 Hypertrophy of breast

== ENCOUNTER → 2024-08-10 12:14 | Outpatient (BNVA) | payer OTHER, SELFPAY | PROVIDERS: PCP Internal Medicine; Visit Provider Internal Medicine | DX: E78.00 Pure hypercholesterolemia, unspecified (principal); J45.20 Mild intermittent asthma, uncomplicated; D86.9 Sarcoidosis, unspecified; E04.1 Nontoxic single thyroid nodule; M51.360 Other intervertebral disc degeneration, lumbar region with discogenic back pain only; M25.561 Pain in right knee; M25.571 Pain in right ankle and joints of right foot; M25.532 Pain in left wrist; G47.33 Obstructive sleep apnea (adult) (pediatric); L20.9 Atopic dermatitis, unspecified; E66.01 Morbid (severe) obesity due to excess calories; Z68.41 Body mass index [BMI] 40.0-44.9, adult; Z71.3 Dietary counseling and surveillance | CPT/HCPCS: 96127; 99212 ==

== ENCOUNTER 2024-09-11 12:30 | Outpatient (AMB) | payer OTHER, SELFPAY ==
[2024-09-11 12:35] VITALS: BP 118/72; PULSE 68; O2SAT 97; BMI 44.9
--- NOTE | 2024-09-11 12:35 | MHC.OFFVIS ---
Vital Signs 09/11/24 12:35 Height 5 ft 3 in Weight 253 lb 8.505 oz BMI 44.9 BP 118/72 Blood Pressure Location Lt brachial Position Sitting Pulse 68 Pulse Source Pulse Oximeter Pulse Oximetry (%) 97 Oxygen Delivery Method Room Air Intake Visit Reasons: Nontoxic single thyroid nodule Intake Note: Patient present today for Nontoxic single thyroid nodule office visit. Electrolysis Needle Operator Required: No Accompanied by: Self / Same As Patient Allergies Sulfa (Sulfonamide Antibiotics) Allergy (Unknown, Verified 09/11/24 12:41) hives SEASONAL ALLERGIES Allergy (Unknown, Uncoded 09/11/24 12:41) RUNNY NOSE - ITCHY EYES Medication List - Last Reconciled 09/11/24 by Becky Gerardo MD acetaminophen 650 mg (2 x 325 mg) PO Q6H PRN albuterol sulfate 90 mcg/actuation 2 puffs inhalation Q6-8H PRN 30 days alclometasone 0.05% topical PRN budesonide-formoterol 160-4.5 mcg/actuation (Symbicort) 2 puffs inhalation BID 30 days cholecalciferol (vitamin D3) 50 mcg PO DAILY 90 days desonide 0.05% 1 appl topical BID 30 days diphenhydramine HCl (Benadryl) 50 mg (2 x 25 mg) PO TID PRN dupilumab (Dupixent) 300 mg subcut Q4W epinephrine 0.3 mg (0.3 mL) IM Q15M PRN hydroxyzine HCl 25 mg PO QID PRN ketoconazole 2% 1 appl topical 2XW 14 days loratadine 10 mg PO DAILY PRN semaglutide (weight loss) 1 mg (0.5 mL) subcut QWEEK 4 weeks tirzepatide (weight loss) (Zepbound) 2.5 mg (0.5 mL) subcut QWEEK 4 weeks tizanidine 4 mg PO Q8H PRN 30 days HPI Comments Details: 44-year-old female here today for initial evaluation of nontoxic multinodular goiter. Otherwise medical history is significant for obesity, Gastric bypass in 2011, revision in 2016. Has allergies. Had a CT chest in September 2023 which showed right 2.8 cm thyroid nodule. Subsequently had ultrasound in April 2024 of the thyroid, I reviewed the images myself, which showed a Right midpole 4.2 X 2.5 X 3.8 cm mixed cystic solid nodule with greater than 10% cystic component, there is no peripheral calcifications or acute angle protrusion of the solid component, classifying this as low or very low suspicion per ROBERT guidelines, however based on size this meets criteria for FNA given it is greater than 2 cm in size per ROBERT. She also has some lymph nodes on the right side a 0.8 cm right level 4 lymph node without hilum. The larger right level 2, 1 cm lymph node has a hilum. Patient currently denies heat or cold intolerance, diarrhea or constipation, hair loss, palpitation, anxiety, mood changes, low energy, changes in appearance of eyes or vision changes, tremors, increased diaphoresis or dry skin. ? Reports mild tremors. Per chart review has gained 25 lbs since winter. Patient denies any difficulty swallowing, pain on swallowing or voice changes or difficulty breathing. Gets a throat itch here and there. Patient denies any history of childhood neck radiation. Denies having ever used lithium, amiodarone or biotin supplements. Patient denies any family history of thyroid cancer or thyroid disease. Physical exam General: sitting comfortably in no acute distress HEENT: normocephalic/atraumatic, EOM intact, moist oral mucosa Neck: supple, palpable3 cm right sided nodule Cardiac: normal heart sounds Pulm: normal breath sounds B/L, no added breath sounds Abd: not distended, Extremities: no edema Laboratory Tests 07/23/23 15:30 TSH 0.71 EXAMINATION: US THYROID 05/01/2024 CLINICAL INFORMATION: Nontoxic multinodular goiter COMPARISON: None available. TECHNIQUE: Linear transducer grayscale and color Doppler examination with attention to the region of the thyroid. FINDINGS: SIZE: Measurements of the thyroid lobes and nodules are given in sagittal, anteroposterior and transverse dimensions respectively. Right Thyroid Lobe: 6.6 x 2.7 x 3.4 cm, volume 28.3 mL. Large Parenchyma: The gland echotexture is homogeneous. Thyroid vascularity is normal. Left Thyroid Lobe: 6.4 x 1.5 x 2.0 cm, volume 8.9 mL. Parenchyma: The gland echotexture is homogeneous. Thyroid vascularity is normal. Isthmus: 0.4 cm in maximum AP dimension. Estimated total number of nodules greater than or equal to 1 cm: one. Rooming House Keeper nodules are described as follows: 1. Location: Right mid pole. Size: 4.2 x 2.5 x 3.8 cm, volume 21.4 mL. Nodule characteristics: Composition: Mixed cystic and solid (1). Echogenicity: Isoechoic (1). Shape: Wider Margins: Smooth (0). Echogenic Foci: None (0). ACR TI-RADS total points: 2 ACR TI-RADS category: 2 2. Location: Right lower pole. Size: 0.5 x 0.5 x 0.7 cm, volume 0.10 mL. Nodule characteristics: Composition: Spongiform (0). Echogenicity: Anechoic (0). Shape: Ill-defined Margins: Wider Echogenic Foci: None (0). ACR TI-RADS total points: 0 ACR TI-RADS category: 1 3. Location: Left lateral. Size: 0.7 x 0.4 x 0.6 cm, volume 0.09 mL. Nodule characteristics: Composition: Spongiform (0). Echogenicity: Anechoic (0). Shape: Wider Margins: Smooth (0). Echogenic Foci: None (0. ACR TI-RADS total points: 0 ACR TI-RADS category: 1 4. Location: Left midpole. Size: 0.5-0 0.3 x 0.6 cm, volume 2.05 mL. Nodule characteristics: Composition: Spongiform (0). Echogenicity: Hyperechoic (1). Shape: Wider Margins: Smooth (0). Echogenic Foci: None (0). ACR TI-RADS total points: 0 ACR TI-RADS category: 1 NODES: No lymphadenopathy is seen in the tissue surrounding the thyroid gland. US/US thyroid IMPRESSION: Complex anechoic cyst with septations mid pole right lobe. Multiple small lesions which are benign with TI-Rads category less than 2 PFSH Medical History Thyroid nodule New abnormality on chest x-ray Sarcoidosis Pure hypercholesterolemia Atopic dermatitis СВЕТЛАНА (obstructive sleep apnea) Morbid obesity with BMI of 40.0-44.9, adult Panniculitis Eczema Lumbar degenerative disc disease Allergic dermatitis COVID-19 Anemia Asthma Surgical History Hx of gastric bypass History of cholecystectomy S/P panniculectomy Gastric bypass status for obesity History of abdominal surgery H/O: hysterectomy (~11/20/14) Family History Family/Other Back problem Mother Diabetes Hypertension Hypercholesteremia Depression Brother Gallstones Daughter Asthma Maternal Uncle Cancer Maternal Uncle Throat cancer Maternal Grandmother Diabetes Maternal Grandfather Diabetes Paternal Grandmother Myocardial infarction Social History Housing: Apartment Are you a primary intensive care ambulance paramedic to a significant other at home: No Do you presently have visiting nurse or other home services: No Alcohol intake: current Alcohol intake frequency: holidays/special occasions only Patient Tobacco Use Status: Never used Tobacco e-Cigarette/Vaping Use: Never Used Second Hand Smoke Exposure: Yes service: No Current occupational status: employed Cognitive needs: No Hearing needs: No Vision needs: Yes Assessment & Plan Assessment & Plan (1) Multinodular goiter (nontoxic): Code(s): E04.2 - Nontoxic multinodular goiter Category: Medical Plan: 44-year-old female here today for initial evaluation of nontoxic multinodular goiter. Had a CT chest in September 2023 which showed right 2.8 cm thyroid nodule. Subsequently had ultrasound in April 2024 of the thyroid, I reviewed the images myself, which showed a Right midpole 4.2 X 2.5 X 3.8 cm mixed cystic solid nodule with greater than 10% cystic component, there is no peripheral calcifications or acute angle protrusion of the solid component, classifying this as low or very low suspicion per ROBERT guidelines, however based on size this meets criteria for FNA given it is greater than 2 cm in size per ROBERT. She also has some lymph nodes on the right side a 0.8 cm right level 4 lymph node without hilum. The larger right level 2, 1 cm lymph node has a hilum. I explained that it is common to have thyroid nodules. About 95% of the time these nodules are benign. However if the nodule is > 1 cm in size or suspicious on ultrasound then a fine need aspiration biopsy is recommended. We discussed that a FNAB involves 4-5 passes with a small gauge needle and material obtained is sent off for cytology.If the cytopathology is benign then the nodule will be followed annually with repeat ultrasounds. However if it is suspicious or malignant, we will need to discuss further management. Indeterminate cytology can be further investigated with repeat FNA, genetic testing or empiric lobectomy. Malignant cytology is managed with either lobectomy or total thyroidectomy. We discussed briefly that thyroid cancer is, in most patients, an indolent disease that does not affect mortality. We will arrange for FNA of the right midpole 4.2 cm at next available opening and patient will follow up with me in clinic thereafter for results and further decision making. She does not have any compressive symptoms. Normal TSH from September 2024. Plan: -scheduled for FNA of the right midpole 4.2 cm nodule and a follow up 2 weeks after to discuss results -ordered TSH with free T4 Plan I spent 45 minutes in reviewing the record, seeing the patient and documenting in the medical record. Orders: Orders Thyroid Stimulating Hormone Today E04.2 - Nontoxic multinodular goiter Free T4 (Free Thyroxine) Today E04.2 - Nontoxic multinodular goiter US biopsy thyroid Today E04.2 - Nontoxic multinodular goiter Patient Instructions: Do blood work We will book you for a thyroid nodule biopsy on your right nodule and a follow up 2 weeks after to discuss results Coding Level of Care Code New Pt Level 4 (25357) Diagnoses Multinodular goiter (nontoxic) E04.2 Time Spent (min) 45
--- OUTSIDE RECORDS SUMMARY | 2024-09-11 14:39 | XMS_ITS | Clinical Summary ---
Author Organization [facility] Address [address] [place] [phone] Care Team Providers Care Wad Lubricator Name Role Phone Lucas Washington MD Primary [...] (BMI) of 40.0 to 44.9 in adult ([facility]) 02/28/2019 DX:Class 3 severe obesity du e to excess calories without serious comorbidity with body mass index (BMI) of 40.0 to 44.9 in adult ([facility]) Vitamin D deficiency 01/23/2019 DX:Vitamin D deficiency [...] drink = 0.6 oz pur e alcohol) Comments Unknown Sex and Gender Information Value Date Recorded Sex Assigned at Not on file Legal Sex Female 11:35 PM EST Gender Identity Not on file Sexual Orientation [...] patient's age to complete this topic Meningococcal B Vacine Aged Out No lo nger eligible based on patient's age to complete [...] age to complete this topic Care Teams Wad Lubricator Relationship Specialty Start Date End Date Lcuas Washington MD [address] [place] [address] [address] LILIAN Lewis PCP - General Internal Medicine 05/17/17
--- OUTSIDE RECORDS SUMMARY | 2024-09-11 14:39 | XMS_ITS | Encounter Summary ---
Author Organization [facility] Address [address] [place] [address] Care Team Providers Care Inspector Publications Name Role Phone Lucas Washington MD Primary Care Provider Julian fernández Encounter Details Date Type Department Care Team Description 12/30/2018 Orders Only General Surgery - [place] [address] [facility] [address] [place] [phone] Sudhir Hayward MD [address] [place] [address] [address] [place] [address] Class 3 severe obesity due to excess calories without serious comorbidity with body mass index (BMI) of 40.0 to 44.9 in adult (HCC) Social History Tobacco Use Types Packs/Day Years [...] on file documented as of this encounter Procedures Procedure Name Priority Date/Time Associated Diagnosis Comments CHG RADIOLOGIC EXAM UPR GI TRC DOUBLE CONTRAST STUDY Routine 11/28/2018 Class 3 severe obesity due to excess calories without serious comorbidity with body mass index (BMI) of 40.0 to 44.9 in adult (HCC) documented in this encounter Results * (UGI) CONTRAST X-RAY OF UPPER GI TRACT (11/28/2018) Sudhir Hayward MD OUTSIDE RADIOLOGY documented in this encounter Visit Diagnoses Diagnosis Class 3 severe obesity due to excess calories without serious comorbidity with body mass index (BMI) of 40.0 to 44.9 in adult (HCC) documented in this encounter Care Teams Inspector Publications Relationship Specialty Start Date End Date Lucas Washington MD PCP - General Internal Medicine 05/17/17 documented as of this encounter
--- OUTSIDE RECORDS SUMMARY | 2024-09-11 14:39 | XMS_ITS | Encounter Summary ---
Author Organization [facility] Address [address] [place] [address] Care Team Providers Care Operations Welder Name Role Phone Lucas Washington MD Primary Care Provider Unava ilable Reason for Visit * Reason Onset Date Comments Work note 07/13/2017 Dr Max Encounter Details Date Type Department Care Team Description 07/13/2017 Telephone General Surgery - [address] [place] [phone] Crow Max MD [address] [place] [address] [phone] Work note (Dr Max) Social History Tobacco [...] on filedocumented in this encounter Care Teams Operations Welder Relationship Specialty Start Date End Date Lucas Washington MD PCP - General Internal Medicine 05/17/17 documented as of this encounter
--- OUTSIDE RECORDS SUMMARY | 2024-09-11 14:39 | XMS_ITS | Clinical Summary ---
Author Organization [facility] Address [address] [place] [address] Care Team Providers Care Teradata Solution Architect Name Role Phone Lucas Washington MD Primary Care Provider Julian ilable Allergies Active Allergy Reactions Severity Noted Date Comments Na Ugbhwfcd-Pcjmpwdzgmkehnjm-Oaljlohaqpfw Hives/Urticaria 0 Medications Medication Sig Dispensed Refills Start Date End Date Status Cholecalciferol (VITAMIN D3) 05009 UNITS Cap Take 1 Cap by mouth once a week. 8 Cap 0 01/23/2019 Active Ferrous Sulfate 324 (65 FE) MG Tab EC Take 1 Tab by mouth daily. 30 Tab 3 01/25/2019 Active albuterol (PROVENTIL) (2.5 MG/3ML) 0.083% nebulizer solution Take 1 Vial by nebulization 3 times daily. 0 Active ferrous sulfate 325 (65 Fe) MG tablet Take 1 tablet by mouth 2 times daily. 0 Active fluticasone 50 MCG/ACT nasal spray 1 [place] by Each Nare route daily. 0 Active EPINEPHrine 0.3 MG/0.3ML Solution Auto-injector Inject as directed See Admin Instructions. Use as directed 0 Active ALBUTEROL SULFATE 108 (90 Base) MCG/ACT Aero Soln Inhale 2 Puffs into the lungs 4 times daily as needed. 0 Active loratadine (CLARITIN) 10 MG tablet Take 1 Tab by mouth daily as needed for Allergies or Itching. 0 Active Active Problems Problem Noted Date History of bariatric surgery 07/20/2019 Overview: 2012 gastric bypass Allergic rhinitis 07/20/2019 Migraine with aura 07/20/2019 Chronic dermatitis 07/20/2019 Class 3 severe obesity due t o excess calories without serious comorbidity with body mass index (BMI) of 40.0 to 44.9 in adult 02/28/2019 Iron deficiency 01/25/2019 Vitamin D deficiency 01/23/2019 Asthma Resolved Problems Problem Noted Date Resolved Date Incisional hernia, without obstruction or gangre ne 08/02/2017 07/20/2019 History of incisional hernia repair 08/02/2017 07/20/2019 Family History Medical History Relation Name Comments Gallstones Brother Asthma Daughter Back Problems Father Diabetes Maternal Grandfather Diabetes Maternal Grandmother Diabetes Mother Hypertension, H yperlipidemia, Depression Diabetes Mother's side 1 Aunt Throat Cancer Mother's side 2 Uncle, anot her Uncle had cancer as well- unknown type [place] Paternal Grandmother Relation Name Status Comments Brother [...] Assigned at Date Recorded Not on file Last Filed Vital Signs Vital Sign Reading Time Taken Comments Blood Pressure 134/79 08/17/2019 10:37 AM EST Pulse 77 08/17/2019 10:37 AM EST Temperature 37.1 ??C (98.7 ??F) 08/17/2019 10:[address] Respiratory Rate - - Oxygen Saturation - - Inhaled Oxygen Concentration - - Weight 106.6 kg (235 lb) 08/17/2019 10:37 AM EST Height 160 cm (5' 3 ) 08/17/2019 10:37 AM EST Body Mass Index 41.63 08/17/2019 10:37 AM EST Plan of Treatment Health Maintenance Due Date Last Done Comments Covid-19 Vaccine (#1) 1980 DTAP/TDAP/TD (1 - Tdap) 1999 PNEUMOCOCCAL VACCINE FOR HIG H RISK PATIENTS (#1) 1999 CERVICAL CANCER SCREENING 2001 BASELINE HEALTH EXAM 40-64 2020 MAMMOGRAM 2020 CHOLESTEROL SCREENING 01/24/2024 01/23/2019 INFLUENZA (#1) 2024 BMI CHECK/ADVISE 07/12/2024 07/25/2019, , 11/10/2018 DEPRESSION SCREENING/FOLLOWUP 07/12/2024 SOCIAL NEEDS SCREENING 07/12/2024 Care Teams Teradata Solution Architect Relationship Specialty Start Date End Date Lucas Washington MD PCP - General Internal Medicine 05/17/17
--- OUTSIDE RECORDS SUMMARY | 2024-09-11 14:39 | XMS_ITS | Encounter Summary ---
Author Organization [facility] Address [facility] [place] [address] Care Team Providers Care Chronic Disease Epidemiologist Name Role Phone Lucas Washington MD Primary Care Provider Julian fernández Encounter Details Date Type Department Care Team Description 05/17/2017 Shop Helper Report Medical Records [address] [place] [id number] Sarah Garcia Social History Tobacco Use Types [...] on filedocumented in this encounter Care Teams Chronic Disease Epidemiologist Relationship Specialty Start Date End Date Lucas Washington MD PCP - General Internal Medicine 05/17/17 documented as of this encounter
--- OUTSIDE RECORDS SUMMARY | 2024-09-11 14:39 | XMS_ITS | Encounter Summary ---
Author Organization [facility] Address [address] [place] [address] Care Team Providers Care Landscape Foreman Name Role Phone Lucas Washington MD Primary Care Provider Julian fernández Encounter Details Date Type Department Care Team Description 08/02/2019 Hospital Medical Records [address] [place] [id number] Sudhir Hayward MD [address] [place] [address] [address] [place] [address] Social History Tobacco Use Types Packs/Day Years [...] on filedocumented in this encounter Care Teams Landscape Foreman Relationship Specialty Start Date End Date Lucas Washington MD PCP - General Internal Medicine 05/17/17 documented as of this encounter
== END 2024-09-11 13:12 | disposition home or self-care (01) ==
PROVIDERS: PCP Internal Medicine; Visit Provider Student in an Organized Health Care Education/Training Program
DX: E04.2 Nontoxic multinodular goiter (principal)
CPT/HCPCS: 99204

== ENCOUNTER 2024-09-11 12:30 | Outpatient (REF) | payer OTHER, SELFPAY ==
--- NOTE | ~2024-09-11 | XR_ITS ---
CLINICAL HISTORY: M25.571 - Pain in right ankle and joints of right foot Right ankle three views Comparison: None Findings: Generalized soft tissue edema slightly greater laterally. Small tibiotalar joint effusion. No acute fracture or dislocation. Intact ankle mortise and osseous talar dome. Intact subtalar joints. No acute process evident in the mid or included forefoot. Impression: No acute fracture or dislocation. Generalized soft tissue swelling and tibiotalar joint effusion. This document has been electronically signed by: Brandyn Mcnair MD on 09/13/2024 06:47:48
--- NOTE | ~2024-09-11 | XR_ITS ---
CLINICAL HISTORY: M25.561 - Pain in right knee 4 view right knee Comparison: None Findings: No fractures or dislocations. No significant arthritic change or erosions. No joint effusion. No radiopaque foreign body. IMPRESSION: 1. No acute findings. This document has been electronically signed by: Brandyn Mcnair MD on 09/13/2024 06:59:50
--- NOTE | ~2024-09-11 | XR_ITS ---
CLINICAL HISTORY: M25.532 - Pain in left wrist Left wrist four views Comparison: None Findings: Normal mineralization. No acute fracture or dislocation. Decreased carpal angle, developmental. Slight degenerative change in the distal radioulnar joint. Radiocarpal, intercarpal and carpometacarpal joints intact. Mild generalized soft tissue edema versus habitus. Impression: No acute fracture or dislocation. 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 This document has been electronically signed by: Brandyn Mcnair MD on 09/13/2024 06:50:03
--- OUTSIDE RECORDS SUMMARY | 2024-09-11 15:43 | XMS_ITS | Clinical Summary ---
Author Organization [facility] Address [address] [place] [phone] Care Team Providers Care Community Affairs Manager Name Role Phone Lucas Washington MD [...] (BMI) of 40.0 to 44.9 in adult ([facility]) 02/28/2019 DX:Class 3 severe obesity du e to excess calories without serious comorbidity with body mass index (BMI) of 40.0 to 44.9 in adult ([facility]) Vitamin D deficiency 01/23/2019 DX:Vitamin D [...] age to complete this topic Care Teams Community Affairs Manager Relationship Specialty Start Date End Date Lucas Washington MD [address] [place] [address] Dr [address] LILIAN Lewis PCP - General Internal Medicine 05/17/17
== END 2024-09-11 12:31 | disposition home or self-care (01) ==
LOC: HO.XRAY 12:30
PROVIDERS: PCP Internal Medicine; Visit Provider Student in an Organized Health Care Education/Training Program
DX: E04.2 Nontoxic multinodular goiter (principal); M25.571 Pain in right ankle and joints of right foot; M25.532 Pain in left wrist; M25.561 Pain in right knee
CPT/HCPCS: 73110; 73564; 73610; 99202

== ENCOUNTER → 2024-09-11 13:26 | Outpatient (BNV) | payer OTHER, SELFPAY | PROVIDERS: PCP Internal Medicine; Visit Provider Radiology Diagnostic Radiology | DX: M25.561 Pain in right knee (principal); M25.471 Effusion, right ankle; M25.532 Pain in left wrist | CPT/HCPCS: 73110; 73564; 73610 ==

== ENCOUNTER 2024-09-18 09:29 | Outpatient (REF) | payer OTHER, SELFPAY ==
[2024-09-18 09:42] LABS: MANUAL DIFF FLAG NO
--- OUTSIDE RECORDS SUMMARY | 2024-09-18 10:19 | XMS_ITS | Encounter Summary ---
Author Organization [facility] Address [address] [place] [address] Care Team Providers Care Signal And Communications Maintainer Name Role Phone Lucas Washington MD Primary Care Provider Julian fernández Encounter Details Date Type Department Care Team Description 12/30/2018 Orders Only General Surgery - [place] [address] [facility] [address] [place] [id number] Sudhir Hayward MD [address] [place] [address] [address] [place] [address] Class 3 severe obesity due to excess [...] (HCC) documented in this encounter Care Teams Signal And Communications Maintainer Relationship Specialty Start Date End Date Lucas Washington MD PCP - General Internal Medicine 05/17/17 documented as of this encounter
--- OUTSIDE RECORDS SUMMARY | 2024-09-18 10:19 | XMS_ITS | Clinical Summary ---
Author Organization [facility] Address [address] [place] [phone] Care Team Providers Care Credit Risk Analyst Name Role Phone Lucas Washington MD Primary [...] (BMI) of 40.0 to 44.9 in adult ([facility]) 02/28/2019 DX:Class 3 severe obesity du e to excess calories without serious comorbidity with body mass index (BMI) of 40.0 to 44.9 in adult ([facility]) Vitamin D deficiency 01/23/2019 DX:Vitamin D [...] age to complete this topic Care Teams Credit Risk Analyst Relationship Specialty Start Date End Date Lucas Washington MD [address] [place] [address] Dr [address] LILIAN Lewis PCP - General Internal Medicine 05/17/17
--- OUTSIDE RECORDS SUMMARY | 2024-09-18 10:19 | XMS_ITS | Encounter Summary ---
Author Organization [facility] Address [address] [place] [address] Care Team Providers Care Developmental Therapist Name Role Phone Lucas Washington MD Primary Care Provider Julian fernández Encounter Details Date Type Department Care Team Description 08/02/2019 Hospital Medical Records [address] [place] [id number] Sudhir Hayward MD [address] [place] [address] [address] [place] [address] Social History Tobacco Use Types Packs/Day Years [...] on filedocumented in this encounter Care Teams Developmental Therapist Relationship Specialty Start Date End Date Lucas Washington MD PCP - General Internal Medicine 05/17/17 documented as of this encounter
--- OUTSIDE RECORDS SUMMARY | 2024-09-18 10:19 | XMS_ITS | Encounter Summary ---
Author Organization [facility] Address [address] [place] [address] Care Team Providers Care Systems Designer Name Role Phone Lucas Washington MD Primary Care Provider Julian fernández Encounter Details Date Type Department Care Team Description 02/24/2019 Telephone General Surgery - [place] [address] [facility] [address] [place] [address] Sudhir Hayward MD [address] [place] [address] [address] [place] [address] Social History Tobacco Use Types Packs/Day Years [...] on filedocumented in this encounter Care Teams Systems Designer Relationship Specialty Start Date End Date Lucas Washington MD PCP - General Internal Medicine 05/17/17 documented as of this encounter
--- OUTSIDE RECORDS SUMMARY | 2024-09-18 10:19 | XMS_ITS | Clinical Summary ---
Author Organization [facility] Address [address] [place] [address] Care Team Providers Care Flux Mixer Name Role Phone Lucas Washington MD Primary Care Provider Julian ilable Allergies Active Allergy Reactions Severity Noted Date Comments Na Oamitdob-Qtvlyztyheoqatve-Ugcthklnhwpj Hives/Urticaria 0 Medications Medication Sig Dispensed Refills Start Date End Date Status Cholecalciferol (VITAMIN D3) 91271 UNITS Cap Take 1 Cap by mouth [...] Active fluticasone 50 MCG/ACT nasal spray 1 [place] by Each Nare route daily. 0 Active [...] Uncle had cancer as well- unknown type [place] Paternal Grandmother Relation Name Status Comments Brother [...] 07/12/2024 SOCIAL NEEDS SCREENING 07/12/2024 Care Teams Flux Mixer Relationship Specialty Start Date End Date Lucas Washington MD PCP - General Internal Medicine 05/17/17
[2024-09-18 10:50] LABS: Basophils Percent Auto 0.4 % (0-2); Eosinophils Absolute Auto 0.2 X10*3/uL (0.0-0.4); Eosinophils Percent Auto 4.5 % (0-4); Hematocrit 41.5 % (37.0-47.0); Imm Gran Abs Auto 0.01 X10*3/uL (0.00-0.03); Imm Gran Pct Auto 0.2 % (0.0-0.4); Lymphocytes Percent Auto 20.2 % (20-40); Mean Corpuscular HGB Conc 33.7 g/dl (31.0-35.0); Mean Corpuscular Hemoglobin 29.7 pg (27.0-33.0); Mean Corpuscular Volume 87.9 fL (80.0-98.0); Mean Platelet Volume 10.3 fL (9.4-12.3); Monocytes Absolute Auto 0.7 X10*3/uL (0.1-1.2); Neutrophils Absolute Auto 2.9 x10*3/uL (2.0-8.3); Neutrophils Percent Auto 59.7 % (45-73); Platelet Count 369 X10*3/uL (160-400); Red Blood Count 4.72 X10*6/uL (4.20-5.50); Red Cell Distribution Width 13.2 % (11.0-16.0); White Blood Count 4.9 X10*3/uL (4.8-10.8)
[2024-09-18 11:04] LABS: Estimated Average Glucose 105 mg/dL; Hemoglobin A1c % 5.3 % (<6.0)
[2024-09-18 11:44] LABS: Free T4 (Free Thyroxine) 0.97 ng/dL (0.71-1.85)
[2024-09-18 11:53] LABS: Alanine Aminotransferase 31 U/L (0-31); Albumin Level 3.7 g/dL (3.5-5.0); Alkaline Phosphatase 71 U/L (39-117); Anion Gap 11 (12-20); Aspartate Amino Transferase 32 U/L (5-31); Bilirubin Total 0.4 mg/dL (0.0-1.0); Blood Urea Nitrogen 9 mg/dL (9-16); Calcium 8.7 mg/dL (8.4-10.2); Carbon Dioxide 23 mmol/L (22-29); Chloride 110 mmol/L (96-108); Cholesterol 165 mg/dL (<200); Estimated Glomerular Filt Rate > 60; Glucose Fasting 105 mg/dL (60-99); HDL Cholesterol 48 mg/dL (>40); LDL Cholesterol Calculated 100 mg/dL (<100); Potassium 3.7 mmol/L (3.3-5.1); Sodium 140 mmol/L (135-145); Total Protein 7.6 g/dL (6.5-8.0); Triglycerides 89 mg/dL (<150)
[2024-09-18 12:10] LABS: Free T4 (Free Thyroxine) 0.99 ng/dL (0.71-1.85); TSH reflex Free T4 0.89 uIU/mL (0.32-4.0); Thyroid Stimulating Hormone 0.89 uIU/mL (0.32-4.0); Vitamin D 25-OH Total 12.7 ng/mL (>30)
[2024-09-18 14:12] LABS: Appearance Urine Cloudy; Color Urine Dark Yellow; Glucose Urine UA Negative (Negative); Leukocyte Esterase Urine Negative (Negative); Nitrite Urine Negative (Negative); PH 5.5 (5.0-9.0); Specific Gravity - Urine >= 1.030 (1.005-1.025); Urine Blood Negative (Negative); Urine Ketones Negative (Negative); Urine Protein Trace mg/dL (Neg-Trace)
== END 2024-09-18 09:30 | disposition home or self-care (01) ==
LOC: HO.LAB 09:29
PROVIDERS: Absent Provider Student in an Organized Health Care Education/Training Program; PCP Internal Medicine; Visit Provider Internal Medicine
DX: D64.9 Anemia, unspecified (principal); E78.00 Pure hypercholesterolemia, unspecified; E55.9 Vitamin D deficiency, unspecified; E04.1 Nontoxic single thyroid nodule; E11.9 Type 2 diabetes mellitus without complications; E04.2 Nontoxic multinodular goiter; R30.0 Dysuria
CPT/HCPCS: 36415; 80053; 80061; 81003; 82306; 83036; 84439; 84443; 85025

== ENCOUNTER 2024-09-27 10:46 | Outpatient (REF) | payer OTHER, SELFPAY ==
--- NOTE | 2024-09-27 11:19 | PCN2_ITS ---
Brief Operative Note Date of procedure: 09/27/24 Pre-op diagnosis: right mid 4.2 cm thyroid nodule FNA biopsy Post-op diagnosis: same Procedure: THYROID FINE NEEDLE ASPIRATION PROCEDURE NOTE ? PROCEDURE PERFORMED: Ultrasound-guided FNA of thyroid nodule ? OPERATORS: Dr. Becky Gerardo ? INDICATION: right mid 4.2 cm thyroid nodule ; FNA performed to assess for malignancy ? DESCRIPTION OF PROCEDURE: The indications for FNA (to assess for malignancy) were reviewed with the patient in detail. Potential complications (e.g., bleeding, infection, damage to local structures, absence of clear diagnosis after FNA) were reviewed. Alternatives to FNA including conservative observation or surgery were described. The patient understood and agreed to proceed. This was documented by the signing of the written informed consent form. A time-out was performed to confirm the patient's identity and the site of planned FNA. The nodule of interest was identified using ultrasound (14 MHz linear array probe). The site of FNA was then draped in the usual fashion and carefully cleaned and prepared using alcohol swabs. The skin at the previously-identified site of needle insertion was iced and sprayed with numbing spray. Under ultrasound guidance, _4_ passes were performed using a 1.5-inch, 25-gauge needle, and sample was obtained via capillary action. The needle tip was clearly visualized to be within the nodule at the time of sampling for 4__ of _4_ passes [Insert image recorded as part of the procedure] The patient tolerated the procedure well. There were no immediate complications. A small adhesive bandage was applied, and the patient was advised to take aceta minophen (rather than NSAIDs) for any discomfort and to report any signs of inflammation/infection or marked swelling. IMPRESSION: Technically successful ultrasound-guided fine needle aspiration of right mid 4.2 cm thyroid nodule. PLAN: The patient was advised that I will provide follow-up regarding the cytology result and any subsequent plans. Becky Gerardo MD Endocrinology Attending Condition: stable Disposition: same day
== END 2024-09-27 10:47 | disposition home or self-care (01) ==
LOC: HO.US 10:46
PROVIDERS: PCP Internal Medicine; Visit Provider Student in an Organized Health Care Education/Training Program
DX: E04.2 Nontoxic multinodular goiter (principal)
CPT/HCPCS: 10005; 88173

== ENCOUNTER → 2024-09-27 10:46 | Outpatient (BNV) | payer OTHER, SELFPAY | PROVIDERS: PCP Internal Medicine; Visit Provider Student in an Organized Health Care Education/Training Program | DX: E04.1 Nontoxic single thyroid nodule (principal) | CPT/HCPCS: 10005 ==

== ENCOUNTER 2024-10-09 09:13 | Emergency (ER) | payer OTHER, SELFPAY ==
[2024-10-09] VITALS (8 sets, daily range): BP systolic 118–147; BP diastolic 73–84; PULSE 89–123; RESP 18–20; TEMP 37.1–37.9; O2SAT 94–98; BMI 43.3
--- NOTE | ~2024-10-09 | CT_ITS ---
EXAMINATION: CT SOFT TISSUE NECK WITH CONTRAST CLINICAL INFORMATION: Reason needle biopsy right thyroid, swelling, warmth, increased difficulty swallowing. COMPARISON: Ultrasound thyroid 05/01/2024, US biopsy thyroid 09/27/2024. TECHNIQUE: Following the intravenous administration of 85 mL of Omnipaque 350 intravenous contrast, helical imaging was performed in the axial plane with generation of coronal and sagittal reformatted images. This CT examination was performed using dose optimization techniques as appropriate, variously including the following: *Automated exposure control *Adjustment of mA and/or kV according to patient size (this includes techniques or standardized protocols for targeted exams where dose is matched to indication/reason for exam; i.e. extremities or head) *Use of iterative reconstruction technique FINDINGS: Lymph Nodes: -Diffuse enlarged lymph nodes present throughout the cervical chains, measuring up to 1.6 cm level 2b. There are enlarged nodes in the superficial left parotid measuring up to 1.1 cm short axis, and abutting the parotid tail measuring up to 1.4 cm short axis. -A right level 2A lymph node measures 1.5 cm in short axis. Carotid Sheath Structures: -Normal. Retropharyngeal course of the proximal ICAs. -Jugular veins are patent. Salivary Glands: -Normal. Tongue Base/Floor of Mouth: -Normal. Mucosal Space: -Mildly prominent adenoidal and tonsillar pillar soft tissues in keeping with reactive etiology. No discrete lesions. Visceral Space: -Thyroid gland: There is a cystic nodule measuring 3.8 x 2.9 x 4.3 cm (AP, TRV, CC) within the right thyroid lobe, encompassing the entire lobe. There is mild leftward shift of the trachea without tracheal narrowing. On recent ultrasound imaging, this nodule measured 4.2 x 2.5 x 3.8 cm, and is likely minimally enlarged allowing for differences in measurement technique. No definite evidence of hemorrhage within the nodule. Mild posterior stranding abutting the nodule, nonspecific but could represent infection. -Remainder of the thyroid left lobe is normal. -Remainder of visceral space is normal. Retropharangeal Space: - Normal. Parapharyngeal Fat Planes: -Normal. Head Of Marketing Spaces: -Normal. Anterior Cervical Space: -Normal. Imaged Intracranial Contents: -No mass effect, edema, or abnormal enhancement. Cortical and dural venous sinuses are patent. The skull base is normal. Globes and Orbits: -Normal. Paranasal Sinuses/Mastoids/Tympanic Spaces: -Normally aerated bilaterally. Lung Apices and Superior Mediastinal Structures: -Imaged lung apices are clear. There is a 4 mm nodule in the posterior right upper lobe (series 2, image 115). -There are enlarged mediastinal lymph nodes throughout the imaged mediastinum measuring up to 1.3 cm short axis. Bony Structures: -No suspicious bone lesions. No fractures. -Normal TM joints. -Normal cervical spine. CT/CT soft tissue neck w IV con IMPRESSION: 1. Cystic thyroid nodule encompassing the entire right thyroid lobe currently measuring 3.8 x 2.9 x 4.3 cm, on prior imaging measured 4.2 x 2.5 x 3.8 cm. It is likely either a stable or possibly minimally enlarged. No evidence of hemorrhage. Mild posterior stranding abutting the nodule, nonspecific but could represent infection in the appropriate clinical setting. This nodule does mildly deviate the trachea to the left without tracheal narrowing. 2. Enlarged lymph nodes throughout the cervical chains, most notable at level 2A and level 2B, measuring up to 1.6 cm short axis. Enlarged mediastinal lymph nodes present, also enlarged measuring up to 1.3 cm short axis. Findings are nonspecific. Consider lymphoproliferative disorder versus inflammatory such as sarcoidosis. 3. There is a 4 mm pulmonary nodule in the posterior right upper lobe, nonspecific. Given mediastinal findings, dedicated CT imaging of the chest should be considered in a nonemergent setting. Lung apices are otherwise clear. Electronically signed by: Matthew Tellez MD 10/09/2024 03:51 PM EDT
[2024-10-09 09:51] LABS: MANUAL DIFF FLAG NO
[2024-10-09 09:57] LABS: Basophils Percent Auto 0.3 % (0-2); Eosinophils Absolute Auto 0.1 X10*3/uL (0.0-0.4); Eosinophils Percent Auto 1.1 % (0-4); Hemoglobin 13.8 g/dl (12.0-16.0); Imm Gran Abs Auto 0.03 X10*3/uL (0.00-0.03); Imm Gran Pct Auto 0.3 % (0.0-0.4); Lymphocytes Absolute Auto 1.2 X10*3/uL (1.2-4.9); Mean Corpuscular HGB Conc 34.5 g/dl (31.0-35.0); Mean Corpuscular Hemoglobin 30.1 pg (27.0-33.0); Mean Corpuscular Volume 87.1 fL (80.0-98.0); Mean Platelet Volume 9.8 fL (9.4-12.3); Monocytes Absolute Auto 1.2 X10*3/uL (0.1-1.2); Monocytes Percent Auto 13.5 % (2-11); Neutrophils Absolute Auto 6.3 x10*3/uL (2.0-8.3); Neutrophils Percent Auto 71.8 % (45-73); Platelet Count 369 X10*3/uL (160-400); Red Blood Count 4.59 X10*6/uL (4.20-5.50); Red Cell Distribution Width 13.2 % (11.0-16.0); White Blood Count 8.8 X10*3/uL (4.8-10.8)
[2024-10-09 10:07] LABS: Anion Gap 14 (12-20); Blood Urea Nitrogen 7 mg/dL (9-16); Calcium 9.3 mg/dL (8.4-10.2); Carbon Dioxide 23 mmol/L (22-29); Chloride 103 mmol/L (96-108); Creatinine Clr Calc Pharmacy 145.5; Estimated Glomerular Filt Rate > 60; Glucose Random 111 mg/dL (60-115); Potassium 4.1 mmol/L (3.3-5.1); Sodium 136 mmol/L (135-145)
[2024-10-09 10:42] LABS: Influenza A PCR NEGATIVE (Negative); Influenza B PCR NEGATIVE (Negative); Resp Syncy Virus RNA Qual PCR NEGATIVE (Negative); SARS COV2 PCR INHOUSE NEGATIVE (Negative)
--- NOTE | 2024-10-09 12:07 | ED_ITS ---
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 alclometasone 0.05 % ointment topical PRN budesonide-formoterol [Symbicort] 160-4.5 mcg/actuation HFA aerosol inhaler 2 puff inhalation BID 30 Days Qty: 10.2 11RF semaglutide (weight loss) 1 mg/0.5 mL pen injector 1 mg subcut QWEEK 28 Days Qty: 2 0RF Referrals: Lucas Washington MD [Primary Care Provider] - Stand Alone Forms: Work/School Release Print Language: Pashto
[2024-10-09 13:44] LABS: Alanine Aminotransferase 22 U/L (0-31); Albumin Level 3.8 g/dL (3.5-5.0); Alkaline Phosphatase 78 U/L (39-117); Aspartate Amino Transferase 25 U/L (5-31); Bilirubin Direct 0.3 mg/dL (0.0-0.5); C Reactive Protein 21.34 mg/dL (< or = 0.50); Total Protein 7.9 g/dL (6.5-8.0)
--- OUTSIDE RECORDS SUMMARY | 2024-10-09 13:44 | XMS_ITS | Clinical Summary ---
[facility] Organization [facility] Address [id number] [place] [id number] Care Team Providers Care Bindery Leadperson Name Role Phone Lucas Washington MD Primary [...] of 40.0 to 44.9 in adult 02/28/2019 DX:Class 3 severe obesity du e to excess calories without serious comorbidity with body mass index (BMI) of 40.0 to 44.9 in adult (HCC) Vitamin D deficiency 01/23/2019 DX:Vitamin D deficiency [...] age to complete this topic Care Teams Bindery Leadperson Relationship Specialty Start Date End Date Lucas Washington MD [address] [place] [address] [address] LILIAN Lewis PCP - General Internal Medicine 05/17/17
[2024-10-09] MEDS: ondansetron HCL 4 MG/2 ML VIAL IVPUSH (13:51)
[2024-10-09] MEDS: Morphine Sulfate 4 MG/ML CARTRIDGE IVPUSH (13:51)
[2024-10-09 13:59] LABS: Erythrocyte Sedimentation Rate 71 MM/HR (0-20)
[2024-10-09 14:31] LABS: Adenovirus PCR Not Detected (Not Detect.); Bordetella parapertussis PCR Not Detected (Not Detect.); Bordetella pertussis PCR Not Detected (Not Detect.); Chlamydia pneumoniae PCR Not Detected (Not Detect.); Coronavirus 229E PCR Not Detected (Not Detect.); Coronavirus HKU1 PCR Not Detected (Not Detect.); Coronavirus NL63 PCR Detected (Not Detect.); Coronavirus OC43 PCR Not Detected (Not Detect.); Human metapneumovirus PCR Not Detected (Not Detect.); Influenza A PCR Not Detected (Not Detect.); Influenza B PCR Not Detected (Not Detect.); Mycoplasma pneumoniae PCR Not Detected (Not Detect.); Parainfluenza 1 PCR Not Detected (Not Detect.); Parainfluenza 2 PCR Not Detected (Not Detect.); Parainfluenza 3 PCR Not Detected (Not Detect.); Parainfluenza 4 PCR Not Detected (Not Detect.); RSV PCR Not Detected (Not Detect.); Rhino/Enterovirus PCR Not Detected (Not Detect.)
[2024-10-09 15:02] LABS: Influenza A H1 PCR Not Detected (Not Detect.); Influenza A H1-2009 PCR Not Detected (Not Detect.); Influenza A H3 PCR Not Detected (Not Detect.); SARS-CoV-2 PCR Not Detected (Not Detect.)
[2024-10-09] MEDS: iohexoL 350 MG/ML 100 ML INFUS..BTL IV (15:13)
--- NOTE | 2024-10-09 16:56 | PC.NURSE ---
Informed PA of pt's temp, okay to continue meds and dc afterwards.
[2024-10-09] MEDS: Acetaminophen 1,000 MG/100 ML PIGGYBACK 400 MG IV (16:57)
[2024-10-09] MEDS: Ketorolac Tromethamine 15 MG/ML VIAL IVPUSH (16:58)
== END 2024-10-09 17:47 | disposition home or self-care (01) ==
PROVIDERS: Physician Assistant Medical; Emergency Provider Emergency Medicine; PCP Internal Medicine
DX: U07.1 COVID-19 (principal); M54.2 Cervicalgia
CPT/HCPCS: 0241U; 70491; 80048; 80076; 85025; 85652; 86140; 87633; 96365; 96375; 99285; J0131; J1885; J2270; J2405; Q9967

== ENCOUNTER → 2024-10-09 12:56 | Outpatient (BNV) | payer OTHER, SELFPAY | PROVIDERS: Emergency Provider Emergency Medicine; PCP Internal Medicine; Visit Provider Radiology Diagnostic Radiology | DX: E04.1 Nontoxic single thyroid nodule (principal); R59.0 Localized enlarged lymph nodes; R91.1 Solitary pulmonary nodule | CPT/HCPCS: 70491 ==

== ENCOUNTER 2024-10-11 13:12 | Outpatient (AMB) | payer OTHER, SELFPAY ==
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
[2024-10-11 13:24] VITALS: BP 128/78; PULSE 105; O2SAT 98; BMI 43.0
--- OUTSIDE RECORDS SUMMARY | 2024-10-11 15:47 | XMS_ITS | Clinical Summary ---
[facility] Organization [facility] Address [id number] [place] [id number] Care Team Providers Care Student Assistant Name Role Phone Lucas Washington MD Primary Care Provider [phone] Surgical History Surgery Date Site/Laterality Comments HERNIA [...] age to complete this topic Care Teams Student Assistant Relationship Specialty Start Date End Date Lucas Washington MD [address] [place] [address] Dr [address] LILIAN Lewis PCP - General Internal Medicine 05/17/17
== END 2024-10-11 13:43 | disposition home or self-care (01) ==
LOC: HO.ENCR 13:13
PROVIDERS: PCP Internal Medicine; Visit Provider Student in an Organized Health Care Education/Training Program
DX: E04.2 Nontoxic multinodular goiter (principal)
CPT/HCPCS: 99213

== ENCOUNTER → 2024-10-11 13:12 | Outpatient (BNVA) | payer OTHER, SELFPAY | PROVIDERS: PCP Internal Medicine; Visit Provider Student in an Organized Health Care Education/Training Program | DX: E04.2 Nontoxic multinodular goiter (principal) | CPT/HCPCS: 99212 ==

== ENCOUNTER 2024-11-01 16:24 | Outpatient (AMB) | payer OTHER, SELFPAY ==
[2024-11-01 16:34] VITALS: BP 124/82; PULSE 82; RESP 20; TEMP 37.2; O2SAT 97; BMI 44.1
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
--- OUTSIDE RECORDS SUMMARY | 2024-11-01 18:36 | XMS_ITS | Encounter Summary ---
Author Organization [facility] Address [address] [place] [address] Care Team Providers Care Hvac Design Engineer Name Role Phone Lucas Washington MD Primary Care Provider Julian fernández Encounter Details Date Type Department Care Team Description 08/02/2019 Hospital Medical Records [address] [place] [id number] Sudhir Hayward MD [address] [place] [address] [address] [place] [address] Social History Tobacco Use Types Packs/Day Years [...] on filedocumented in this encounter Care Teams Hvac Design Engineer Relationship Specialty Start Date End Date Lucas Washington MD PCP - General Internal Medicine 05/17/17 documented as of this encounter
--- OUTSIDE RECORDS SUMMARY | 2024-11-01 18:36 | XMS_ITS | Clinical Summary ---
Author Organization [facility] Address [id number] [place] [id number] Care Team Providers Care Flue Tile Press Operator Name Role Phone Lucas Washington MD Primary [...] Vaccine (2023-2 5 season) 2024 Influenza Vaccine (Season Ended) 2025 HIB Vaccines Aged Out No longer eligi [...] age to complete this topic Meningococcal B Vaccine Aged Out No l onger eligible based on patient's age to complete [...] age to complete this topic Care Teams Flue Tile Press Operator Relationship Specialty Start Date End Date Lucas Washington MD [address] LILIAN Lewis PCP - General Internal Medicine 05/17/17
--- OUTSIDE RECORDS SUMMARY | 2024-11-01 18:36 | XMS_ITS | Encounter Summary ---
Author Organization [facility] Address [facility] [place] [address] Care Team Providers Care Director Of Critical Care Name Role Phone Lucas Washington MD Primary Care Provider Julian fernández Encounter Details Date Type Department Care Team Description 05/17/2017 Conveyor Console Operator Report Medical Records [address] [place] [id number] Sarah Garcia Social History Tobacco Use Types [...] on filedocumented in this encounter Care Teams Director Of Critical Care Relationship Specialty Start Date End Date Lucas Washington MD PCP - General Internal Medicine 05/17/17 documented as of this encounter
--- OUTSIDE RECORDS SUMMARY | 2024-11-01 18:36 | XMS_ITS | Encounter Summary ---
Author Organization [facility] Address [address] [place] [address] Care Team Providers Care Supervisor Decorating Name Role Phone Lucas Washington MD Primary Care Provider Unava ilable Reason for Visit * Reason Onset Date Comments Work note 07/13/2017 Dr Max Encounter Details Date Type Department Care Team Description 07/13/2017 Telephone General Surgery - [address] [place] [id number] Crow Max MD [address] [place] [address] [phone] Work note (Dr Max) Social History Tobacco [...] like note to be: Placed in patient roll picker documented in this encounter Plan of Treatment Not on file documented as of this encounter Visit Diagnoses Not on filedocumented in this encounter Care Teams Supervisor Decorating Relationship Specialty Start Date End Date Lucas Washington MD PCP - General Internal Medicine 05/17/17 documented as of this encounter
--- OUTSIDE RECORDS SUMMARY | 2024-11-01 18:36 | XMS_ITS | Encounter Summary ---
Author Organization [facility] Address [facility] [place] [address] Care Team Providers Care Marine Chronometer Assembler Name Role Phone Lucas Washington MD Primary Care Provider Julian fernández Encounter Details Date Type Department Care Team Description 07/20/2017 Hospital Medical Records [address] [place] [id number] Crow Bridges [facility] Social History Tobacco Use Types Packs/Day Years [...] on filedocumented in this encounter Care Teams Marine Chronometer Assembler Relationship Specialty Start Date End Date Lucas Washington MD PCP - General Internal Medicine 05/17/17 documented as of this encounter
--- OUTSIDE RECORDS SUMMARY | 2024-11-01 18:36 | XMS_ITS | Clinical Summary ---
Author Organization [facility] Address [address] [place] [address] Care Team Providers Care Multiple Slide Operator Name Role Phone Lucas Washington MD Primary Care Provider Julian ilable Allergies Active Allergy Reactions Severity Noted Date Comments Na Vndoiavj-Fhtscfrfwfmrnpip-Yvwcxuaffupf Hives/Urticaria 0 Medications Medication Sig Dispensed Refills Start Date End Date Status Cholecalciferol (VITAMIN D3) 86002 UNITS Cap Take 1 Cap by mouth [...] Active fluticasone 50 MCG/ACT nasal spray 1 [place] by Each Nare route daily. 0 Active [...] Uncle had cancer as well- unknown type [place] Paternal Grandmother Relation Name Status Comments Brother [...] 2020 MAMMOGRAM 2020 CHOLESTEROL SCREENING 01/24/2024 01/23/2019 BMI CHECK/ADVISE 07/12/2024 07/25/2019, , 11/10/2018 DEPRESSION SCREENING/FOLLOWUP 07/12/2024 SOCIAL NEEDS SCREENING 07/12/2024 INFLUENZA (Season Ended) 2025 Care Teams Multiple Slide Operator Relationship Specialty Start Date End Date Lucas Washington MD PCP - General Internal Medicine 05/17/17
== END 2024-11-01 17:26 | disposition home or self-care (01) ==
LOC: HO.HMCH 16:25
PROVIDERS: PCP Internal Medicine
DX: J32.9 Chronic sinusitis, unspecified (principal); R05.2 Subacute cough; N39.3 Stress incontinence (female) (male); J45.20 Mild intermittent asthma, uncomplicated

== ENCOUNTER → 2024-11-01 16:24 | Outpatient (BNVA) | payer OTHER, SELFPAY | PROVIDERS: PCP Internal Medicine | DX: J32.9 Chronic sinusitis, unspecified (principal); R05.2 Subacute cough; N39.3 Stress incontinence (female) (male); J45.20 Mild intermittent asthma, uncomplicated | CPT/HCPCS: 99212 ==

== ENCOUNTER 2025-03-28 15:48 | Outpatient (AMB) | payer OTHER, SELFPAY ==
--- NOTE | 2025-03-28 15:52 | A.OFFPC_ITS ---
Vital Signs 03/28/25 15:53 Height 5 ft 3 in Weight 232 lb 8 oz BMI 41.2 BP 122/78 Blood Pressure Location Lt brachial Position Sitting Pulse 82 Pulse Source Pulse Oximeter Pulse Oximetry (%) 99 Oxygen Delivery Method Room Air Intake Visit Reasons: follow up Half Section Ironer Required: No Accompanied by: Self / Same As Patient Allergies Sulfa (Sulfonamide Antibiotics) Allergy (Unknown, Verified 03/28/25 16:14) hives SEASONAL ALLERGIES Allergy (Unknown, Uncoded 03/28/25 16:14) RUNNY NOSE - ITCHY EYES Medication List - Last Reconciled 03/28/25 by Lucas Washington MD acetaminophen 650 mg (2 x 325 mg) PO Q6H PRN albuterol sulfate 90 mcg/actuation 2 puffs inhalation Q6-8H PRN 30 days alclometasone 0.05% topical PRN budesonide-formoterol 160-4.5 mcg/actuation (Symbicort) 2 puffs inhalation BID 30 days cholecalciferol (vitamin D3) 50 mcg PO DAILY 90 days clobetasol 0.05% topical DAILY desonide 0.05% 1 appl topical BID 30 days diphenhydramine HCl (Benadryl) 50 mg (2 x 25 mg) PO TID PRN dupilumab (Dupixent) 300 mg subcut Q4W epinephrine 0.3 mg (0.3 mL) IM Q15M PRN ketoconazole 2% 1 appl topical 2XW 14 days loratadine 10 mg PO DAILY PRN tirzepatide (weight loss) 7.5 mg (0.5 mL) subcut QWEEK 4 weeks tizanidine 4 mg PO Q8H PRN 30 days Tobacco use date assessed: 03/28/25 Dental Screening Dental Screen Date: 03/28/25 Did you have a dental visit in the last 12 months?: Yes Did you have a dental problem in the last 6 months where you did not have access to dental care?: No Was dental information given to patient?: Patient has dentist HPI follow up HPI Details Patient comes in today for her follow up visit Reports that she has been experiencing persistent nasal and sinus congestion for months now Recalls experiencing some temporary improvement of her symptoms with empiric Tx with Augmentin back in October 2024 She also reports that she has noticed some swelling or lumps on both sides of her neck as well as behind her ears lately, especially on the left side She denies any fever or sore throat lately Denies any headaches or dizziness but reports experiencing increased fatigue for a while now Denies any chest pains, no increased SOB No nausea/vomiting, no abdominal pain No change in bowel habits noted Notes (+) urge urinary incontinence at times lately; she denies any dysuria or urinary frequency States that she has also been breaking out in hives often especially after prolonged exposure to direct sunlight so she tends to stay out of the sun as much as possible She will need a form filled out today to allow her to get an exemption 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 [facility] Medical History (Updated 04/01/25 @ 17:30 by Lucas Washington MD) Fatigue New abnormality on chest x-ray Atopic dermatitis Allergic dermatitis Hypoxemia associated with sleep Daytime somnolence Headache Muscle spasm Right ankle pain Left shoulder pain Bilateral shoulder pain Right shoulder pain Left wrist pain Right knee pain Acute exacerbation of chronic low back pain Back pain Neck pain Sacroiliac joint dysfunction COVID-19 Lipoma of back Morbid obesity with BMI of 40.0-44.9, adult Obesity, morbid, BMI 40.0-49.9 Thyroid nodule incidentally noted on imaging study Impaired fasting glucose History of food allergy Thyroid nodule Sarcoidosis Pure hypercholesterolemia СВЕТЛАНА (obstructive sleep apnea) Panniculitis Eczema Lumbar degenerative disc disease Anemia Asthma Surgical History Hx of gastric bypass History of cholecystectomy S/P panniculectomy Gastric bypass status for obesity History of abdominal surgery H/O: hysterectomy (~11/20/14) Family History Family/Other Back problem Mother Diabetes Hypertension Hypercholesteremia Depression Brother Gallstones Daughter Asthma Maternal Uncle Cancer Maternal Uncle Throat cancer Maternal Grandmother Diabetes Maternal Grandfather Diabetes Paternal Grandmother Myocardial infarction Social History Housing: Apartment Are you a primary care professional to a significant other at home: No Do you presently have visiting nurse or other home services: No Alcohol intake: current Alcohol intake frequency: holidays/special occasions only Patient Tobacco Use Status: Never used Tobacco e-Cigarette/Vaping Use: Never Used Second Hand Smoke Exposure: Yes service: No Current occupational status: employed Cognitive needs: No Hearing needs: No Vision needs: Yes (Glasses) Questionnaire PHQ-9 Over the last 2 weeks, how often have you been bothered by any of the following problems? 1. Little interest or pleasure in doing things: several days 2. Feeling down, depressed, or hopeless: several days 3. Trouble falling or staying asleep, or sleeping too much: several days 4. Feeling tired or having little energy: nearly every day 5. Poor appetite or overeating: not at all 6. Feeling bad about yourself - or that you are a failure or have let yourself or your family down: nearly every day 7. Trouble concentrating on things, such as reading the newspaper or watching television: not at all 8. Moving or speaking so slowly that other people could have noticed. Or the opposite - being so fidgety or restless that you have been moving around a lot more than usual: not at all 9. Thoughts that you would be better off or of hurting yourself in some way: not at all Total score: 9 Depression Screening Interpretation: Positive Depression Screening Follow-up: Existing condition and Follow-up Visit Requested Depression Screening Done: Yes 63524 - PHQ-9 Billing: Yes Source: Developed by Drs. Neil Dodd, Karina Avalos, Steve Quevedo and colleagues, with an educational radha from [employer]. Thrive Questionnaire Date Thrive assessed: 11/01/24 I am a: Patient What is your living situation today?: I have a steady place to live Within the past 12 months, did the food you bought not last and you didn't have the money to get more?: Never true Within the past 12 months, did you worry whether your food would run out before you got money to buy more?: Never true Do you have trouble paying for medicines?: I choose not to answer this question Do you have trouble getting transportation to medical appointments?: I choose not to answer this question Do you have trouble paying your heating and electricity bill?: I choose not to answer this question Do you have trouble taking care of your child, family member or friend?: No Do you have trouble with day-to-day activities such as bathing, preparing meals, shopping, managing finances, etc.?: No Are you currently unemployed and looking for a job?: No Are you interested in more education?: No Please select the resources that you would like help with: None Currently or been in a relationship where the following occur: No concerns reported THRIVE Score: 0 AUDIT C Alcohol Use Questionnaire (AUDIT-C) 1. How often do you have a drink containing alcohol?: 2-4 times a month 2. How many drinks containing alcohol do you have on a typical day when you are drinking?: 3 or 4 3. How often do you have six or more drinks on one occasion?: Monthly Total Score: 5 Score Reviewed/Action Taken: Yes CAITY-7 AMB Questionnaire CAITY-7 Date CAITY - 7 assessed: 08/10/24 Feeling nervous, anxious, or on edge: 0 = Not at all Not being able to stop or control worryin = Not at all Worrying too much about different things: 1 = Several days Trouble relaxin = Several days Being so restless that it is hard to sit still: 1 = Several days Becoming easily annoyed or irritable: 1 = Several days Feeling afraid as if something awful might happen: 0 = Not at all Total CAITY-7 score (0-4 normal; 5-9 mild; 10-14 moderate; 15-21 severe): 4 Source: Developed by Drs. Neil Dodd, Karina Avalos, Steve Quevedo and colleagues, with an educational radha from [employer]. Review of Systems Const Denies chills, Reports fatigue, Denies fever(s) and Denies headache(s) ENT Details: (+) palpable lumps/nodules on both sides of her neck and behind her ears Denies dysphagia, Denies dizziness, Denies otalgia, Denies headache(s), Reports nasal congestion, Reports neck pain (recurrent), Denies odynophagia, Reports sinus pressure and Denies sore throat Card Denies chest pain, Denies palpitations and Denies dyspnea Resp Denies chest congestion, Reports cough (on and off), Denies dyspnea and Denies wheezing GI Denies abdominal pain, Denies constipation, Denies dysphagia, Denies heartburn, Denies diarrhea, Denies nausea, Denies odynophagia and Denies vomiting Denies difficulty voiding, Denies nocturia, Denies dysuria, Reports urinary incontinence and Denies urinary urgency Musc Reports back pain (recurrent), Reports arthralgias (increased over the L wrist, R knee and R ankle for the past few weeks) and Reports neck pain (recurrent) Skin/Breast Details: (+) recurrent hives especially with prolonged sun exposure Denies rash Neuro Denies dizziness and Denies headache(s) Endo Reports fatigue and Denies palpitations Aller/Immun Denies wheezing Physical exam (Primary Care) Vital Signs: Last Vital Signs Pulse 82 03/28/25 15:53 BP 122/78 03/28/25 15:53 Pulse Ox 99 03/28/25 15:53 Oxygen Delivery Method Room Air 03/28/25 15:53 BMI result Body Mass Index 41.2 Tobacco/Smoking Status: Tobacco use Status Tobacco use date assessed 03/28/25 03/28/25 15:53 Patient Tobacco Use Status Never used Tobacco 03/28/25 15:53 e-Cigarette/Vaping Use Never Used 03/28/25 15:53 PHQ-9: PHQ-9 Score PHQ-9: Total score 9 03/28/25 16:23 Depression Screening Interpretation: Positive Depression Screening Follow-up: Existing condition and Follow-up Visit Requested Thrive Assessment: Date of Thrive Assessment Date Thrive assessed 11/01/24 03/28/25 15:53 Currently or been in a relationship where the following occur: No concerns reported Const General: no acute distress and alert HENMT Ears: TM's normal bilaterally and EAC's normal Throat: Yes posterior oropharynx normal and Yes tonsils normal (no TP congestion) Neck Neck: No lymphadenopathy Thyroid: Thyroid normal Resp Auscultation: clear to auscultation bilaterally, no rales and no wheezes Cardio Rate: regular rate Rhythm: regular rhythm Heart sounds: no murmurs GI Palpation (GI): Soft to palpation and nontender Auscultation: normal bowel sounds General: Yes no CVA tenderness Back/Spine/Pelvis Back: no CVA tenderness Cervical Spine: cervical muscular tenderness and No Cervical spine tenderness Thoracic/Lumbar Spine: paraspinal muscle tenderness bilaterally in the upper thoracic and lumbar spinal tenderness (mild) Skin Rashes: no rashes Extrem General: Yes no clubbing, cyanosis or edema Left upper extremity: wrist ((+) tenderness) Right lower extremity: knee Details: tenderness; no swelling and ankle Details: tenderness Location: of the medial malleolus; no swelling Coding Level of Care Code Est Pt Level 4 (88281) Diagnoses Lymphadenopathy of head and neck R59.1 Sinusitis, unspecified chronicity, unspecified location J32.9 Sinusitis location: unspecified location Chronicity: unspecified Sarcoidosis D86.9 Mild intermittent asthma without complication J45.20 Asthma severity: mild Asthma persistence: intermittent Asthma complication type: uncomplicated Urge urinary incontinence N39.41 Pure hypercholesterolemia E78.00 Thyroid nodule E04.1 Degeneration of intervertebral disc of lumbar region with discogenic back pain M51.360 Disc-related pain type: discogenic back pain only СВЕТЛАНА (obstructive sleep apnea) G47.33 Atopic dermatitis, unspecified type L20.9 Atopic dermatitis type: unspecified Obesity, morbid, BMI 40.0-49.9 E66.01 Additional Codes PHQ-9 - 98135 - PHQ-9 Billing: Yes ([id number]) Assessment & Plan Assessment & Plan (1) Lymphadenopathy of head and neck: Code(s): R59.1 - Generalized enlarged lymph nodes Category: Medical Plan: Will send patient for some labs GATITO for further evaluation of what appears to be scattered lymphadenopathies of her neck and posterior auricular areas She does have a Hx of sarcoidosis so all of these could be just due to or related to her condition (2) Sinusitis: Code(s): J32.9 - Chronic sinusitis, unspecified Category: Medical Qualifiers: Sinusitis location: unspecified location Chronicity: unspecified Qualified Code(s): J32.9 - Chronic sinusitis, unspecified Plan: Will send patient for sinus x-rays GATITO for further evaluation Will start her empirically for now on Augmentin 875 mg BID x 10 days (3) Sarcoidosis: Code(s): D86.9 - Sarcoidosis, unspecified Category: Medical Plan: This currently appears stable Patient was initially advised by Dr. Comer last year that the skin lesions they biopsied from her turned out to be sarcoid lesions and recommended that she see pulmonary for further evaluation and management of sarcoidosis Labs done last year revealed elevated ESR and CRP Chest x-rays done revealed (+) prominence of the pulmonary hilum suggestive of of sarcoidosis Chest CT done in September 2023 revealed (+) numerous enlarged mediastinal lymph nodes noted. Evaluation for hilar lymphadenopathy is suboptimal given lack of IV contrast, however, there is suspicion of underlying enlarged hilar lymph nodes bilaterally There are also several bilateral pulmonary nodules noted, the largest measuring 7 mm She is now following up with [facility] regularly for her sarcoidosis (4) Asthma: Code(s): J45.909 - Unspecified asthma, uncomplicated Category: Medical Qualifiers: Asthma severity: mild Asthma persistence: intermittent Asthma complication type: uncomplicated Qualified Code(s): J45.20 - Mild intermittent asthma, uncomplicated Plan: Controlled Continue Symbicort 160-4.5 mcg 2 inhalations BID and Albuterol HFA 2 inhalations every 6 hours as needed States that her asthma and eczema have both improved a lot with less flare ups since she was started on Dupixent about 1 to 2 years ago - continue Dupixent 300 mg inj SQ every 4 weeks (5) Urge urinary incontinence: Code(s): N39.41 - Urge incontinence Category: Medical Plan: Will refer her to urology for further evaluation and management (6) Pure hypercholesterolemia: Code(s): E78.00 - Pure hypercholesterolemia, unspecified Category: Medical Plan: She has no follow up labs done recently Her cholesterol numbers were okay back in September 2024 although they have increased slightly from last year's numbers Reinforced low cholesterol diet Will recheck her labs and fasting lipids in 4 months for follow up (7) Thyroid nodule: Code(s): E04.1 - Nontoxic single thyroid nodule Category: Medical Plan: There is a partially visualized right thyroid nodule measuring at least 2.8 cm when patient had her chest CT done back in September 2023 She was sent for a thyroid US by pulmonary but she missed her appointment then as she developed COVID at the time This was reordered at her last visit and she eventually her her thyroid US done in April 2024, which revealed (+) complex anechoic cyst with septations at the mid pole of the right lobe. There are also multiple small lesions which are benign with TI-Rads category less than 2 Patient's TFTs were normal when they were last checked in September 2024 She was referred to endocrinology for further evaluation had a thyroid nodule biopsy done back in September 2024, which was nondiagnostic She was advised have a repeat ultrasound in 1 year follow-up and she will also continue to follow up with endocrinology regularly as scheduled (8) Lumbar degenerative disc disease: Code(s): M51.36 - Other intervertebral disc degeneration, lumbar region Category: Medical Qualifiers: Disc-related pain type: discogenic back pain only Qualified Code(s): M51.360 - Other intervertebral disc degeneration, lumbar region with discogenic back pain only Plan: Reinforced activity and weight-lifting restrictions Lumbar spine MRI done in May 2020 revealed the followin. There are 4 nonrib-bearing lumbar-type vertebral bodies with sacralization of L5.? 2. L3-L4 mild broad-based disc bulge with a superimposed shallow right extraforaminal disc protrusion which contacts the exiting right L3 nerve root. Bilateral facet arthropathy and thickening of the ligamentum flavum causing minimal central canal as well as [id number] right and mild left neural foraminal stenosis. 3. L4-L5 broad-based disc bulge, slightly asymmetric to the right with posterior annular fissuring. This abuts the traversing right L5 nerve root within the lateral recess. Bilateral facet arthropathy with mild bilateral neural foraminal stenosis. Repeat lumbar spine x-rays done in May 2023 revealed (+) mild spondylosis with findings similar to those seen on her MRI done a few years ago Follow up with Pain Management as scheduled (9) СВЕТЛАНА (obstructive sleep apnea): Code(s): G47.33 - Obstructive sleep apnea (adult) (pediatric) Category: Medical Plan: Continue using her CPAP device when sleeping at night daily Follow up with Sleep Medicine as scheduled (10) Atopic dermatitis: Code(s): L20.9 - Atopic dermatitis, unspecified Category: Medical Qualifiers: Atopic dermatitis type: unspecified Qualified Code(s): L20.9 - Atopic dermatitis, unspecified Plan: Stable - continue Desonide 0.05% cream BID PRN Patient states that her eczema has improved significantly since she was started on Dupixent a couple of years ago Follow up with dermatology as scheduled (11) Obesity, morbid, BMI 40.0-49.9: Comment: 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 08/02/2019 Code(s): E66.01 - Morbid (severe) obesity due to excess calories Category: Medical Plan: Reinforced diet/exercise as tolerated/lose weight She has been referred to weight management [place] [facility] [place] further evaluation and to explore other aspects as patient has failed bariatric surgery - she has reportedly not lost much weight despite her gastric bypass surgery and sub sequent conversion surgery She was previously tried on Metformin 500 mg QD, which she states did not help at all We eventually started her on Wegovy and she was able to lose a good amount of weight and appears to be doing well on it but her insurance recently inexplicably declined to continue covering her Rx when her dose was increased to 1 mg Will try to switch her over to Ozempic as this could be a formulary issue but she was eventually able to start on Zepbound instead and is now on Zepbound at 7.5 mg SQ once a week Plan Follow up in 4 months Orders: Orders Complete Blood Count Auto Diff 4 Months D64.9 - Anemia, unspecified Comprehensive [place]. Panel Fast 4 Months E78.00 - Pure hypercholesterolemia, unspecified Complete Blood Count Auto Diff 03/28/25 D64.9 - Anemia, unspecified, R59.1 - Generalized enlarged lymph nodes Comprehensive Met. Panel 03/28/25 R59.1 - Generalized enlarged lymph nodes C Reactive Protein 03/28/25 R59.1 - Generalized enlarged lymph nodes Uric Acid 03/28/25 R59.1 - Generalized enlarged lymph nodes Cytomegalovirus Ab (IgG, IgM) 03/28/25 R59.1 - Generalized enlarged lymph nodes Lyme IgG/IgM w/reflex to WB 03/28/25 R59.1 - Generalized enlarged lymph nodes XR sinus min 3V 03/28/25 J32.9 - Chronic sinusitis, unspecified Lipid Panel 4 Months E78.00 - Pure hypercholesterolemia, unspecified Erythrocyte Sedimentation Rate 03/28/25 R59.1 - Generalized enlarged lymph nodes Lactate Dehydrogenase 03/28/25 R59.1 - Generalized enlarged lymph nodes Garrick-Ingram Virus Profile 03/28/25 R59.1 - Generalized enlarged lymph nodes T Spot TB 03/28/25 R59.1 - Generalized enlarged lymph nodes, Z11.1 - Encounter for screening for respiratory tuberculosis Referrals Urology Referral R32 - Unspecified urinary incontinence Medications: New 2 amoxicillin-pot clavulanate 875-125 mg 1 tab PO BID 20 tabs 0RF 10 days
[2025-03-28 15:53] VITALS: BP 122/78; PULSE 82; O2SAT 99; BMI 41.2
== END 2025-03-28 16:31 | disposition home or self-care (01) ==
LOC: HO.HMCH 15:49
PROVIDERS: PCP Internal Medicine; Visit Provider Internal Medicine
DX: R59.1 Generalized enlarged lymph nodes (principal); J32.9 Chronic sinusitis, unspecified; E66.01 Morbid (severe) obesity due to excess calories; Z68.41 Body mass index [BMI] 40.0-44.9, adult; D86.9 Sarcoidosis, unspecified; J45.20 Mild intermittent asthma, uncomplicated; N39.41 Urge incontinence; E78.00 Pure hypercholesterolemia, unspecified; E04.1 Nontoxic single thyroid nodule; M51.360 Other intervertebral disc degeneration, lumbar region with discogenic back pain only; G47.33 Obstructive sleep apnea (adult) (pediatric); L20.9 Atopic dermatitis, unspecified

== ENCOUNTER → 2025-03-28 15:48 | Outpatient (BNVA) | payer OTHER, SELFPAY | PROVIDERS: PCP Internal Medicine; Visit Provider Internal Medicine | DX: N39.41 Urge incontinence (principal); R59.1 Generalized enlarged lymph nodes; J32.9 Chronic sinusitis, unspecified; D86.9 Sarcoidosis, unspecified; J45.20 Mild intermittent asthma, uncomplicated; E78.00 Pure hypercholesterolemia, unspecified; E04.1 Nontoxic single thyroid nodule; M51.360 Other intervertebral disc degeneration, lumbar region with discogenic back pain only; G47.33 Obstructive sleep apnea (adult) (pediatric); L20.9 Atopic dermatitis, unspecified; E66.01 Morbid (severe) obesity due to excess calories; Z68.41 Body mass index [BMI] 40.0-44.9, adult | CPT/HCPCS: 96127; 99212 ==

== ENCOUNTER 2025-06-18 15:26 | Outpatient (AMB) | payer OTHER, SELFPAY ==
--- NOTE | 2025-06-18 15:39 | A.OFFVIS_ITS ---
Intake Visit Reasons: Urinary incontinence (set(UA+PVR) Intake Note: New patient presents today for initial visit for urinary incontinence Urology Medication:None Blood Thinner:None Antibiotic Allergies:Sulfa PVR:16ml Allergies Sulfa (Sulfonamide Antibiotics) Allergy (Unknown, Verified 06/18/25 15:40) hives SEASONAL ALLERGIES Allergy (Unknown, Uncoded 03/28/25 16:14) RUNNY NOSE - ITCHY EYES HPI Comments Details: So we do do some you had a hysterectomy and 1 was at home and was that for a reason why you having heavy menstrual were fibroids as well as all his you are having heavy periods okay so there is a task that we do to get some more information about the bladder sometimes it is not just 1 reason that your leaking and so we need to get a good evaluation so that I can tell you while medication may help or bothersome procedures were combination of things then we can discuss that more okay ever feel a bulge vaginally 1 year showering or anything like that failed do feel a vaginal bulge like 1 year showering or anything like that like something is falling okay so the test is done where we put a catheter in the bladder and everything is hooked up to a computer the nurse does the test and then I will also be there to review the results with you and and do an exam at that time to okay so you write that down okay with the hysterectomy and it was vaginal hysterectomy okay so when you go up to the exit they will healthy Worse okay so any pregnancies when you were younger 2 to and with a C-sections 1 which 1 so for the bowel dose and was that because she was being or was delayed rates okay so the hands do the okay and how big were the baby's generally so is was then okay wire was LP so they are both large baby 41 so I am asking just to get a general idea of some of the prior history of wheeze you know that as we all get older there can be changes in the pelvic muscles strength and some of that can be do besides just getting older it can be due to weight changes the more have a year or more weight that we put on the bladder that can affect things also pregnancies the number of pregnancies and also how big the babies are also over time was has bypass in [address] and last we gland okay so that is always helpful women leak urine for 2 reasons either 0 the muscles are weak that is support the bladder neck or the bladder itself inside the bladder the muscles think it and caused bladder spasms which can also happen with changes due to estrogen changes in her body as we get older the ovaries discrete less estrogen and that affects the bladder health --the patient is a 44-year-old female here as a new patient for urinary incontinence some I have urine I understand that you are concerned about bladder control tell me what it has been going well frequently to to the bathroom last medial milk he okay cough okay. Click past okay how long has this been willing 4 months and stopped the [facility] Medical History Fatigue New abnormality on chest x-ray Atopic dermatitis Allergic dermatitis Hypoxemia associated with sleep Daytime somnolence Headache Muscle spasm Right ankle pain Left shoulder pain Bilateral shoulder pain Right shoulder pain Left wrist pain Right knee pain Acute exacerbation of chronic low back pain Back pain Neck pain Sacroiliac joint dysfunction COVID-19 Lipoma of back Morbid obesity with BMI of 40.0-44.9, adult Obesity, morbid, BMI 40.0-49.9 Thyroid nodule incidentally noted on imaging study Impaired fasting glucose History of food allergy Thyroid nodule Sarcoidosis Pure hypercholesterolemia СВЕТЛАНА (obstructive sleep apnea) Panniculitis Eczema Lumbar degenerative disc disease Anemia Asthma Surgical History Hx of gastric bypass History of cholecystectomy S/P panniculectomy Gastric bypass status for obesity History of abdominal surgery H/O: hysterectomy (~11/20/14) Family History Family/Other Back problem Mother Diabetes Hypertension Hypercholesteremia Depression Brother Gallstones Daughter Asthma Maternal Uncle Cancer Maternal Uncle Throat cancer Maternal Grandmother Diabetes Maternal Grandfather Diabetes Paternal Grandmother Myocardial infarction Social History Housing: Apartment Are you a primary physician assistant primary care to a significant other at home: No Do you presently have visiting nurse or other home services: No Alcohol intake: current Alcohol intake frequency: holidays/special occasions only Patient Tobacco Use Status: Never used Tobacco e-Cigarette/Vaping Use: Never Used Second Hand Smoke Exposure: Yes service: No Current occupational status: employed Cognitive needs: No Hearing needs: No Vision needs: Yes (Glasses) Office Procedures Post Void Residual Post Residual Void Post Void Residual (PVR): 16 [id number] Void Residual by ultrasound Results AMB Urinalysis, Automated UA Leukoctes 0 Roque/uL Last Edit by Vane Oliver on 06/18/25 16:57 UA Nitrite Negative Last Edit by Vane Oliver on 06/18/25 16:57 UA Urobilinogen 1 mg/dL Last Edit by Vane Oliver on 06/18/25 16:57 UA Protein 15 mg/dL Last Edit by Vane Oliver on 06/18/25 16:57 UA pH 6.0 Last Edit by Vane Oliver on 06/18/25 16:57 UA Blood 0 Dami/uL Last Edit by Vane Oliver on 06/18/25 16:57 UA Specific Hawley 1.030 Last Edit by Vane Oliver on 06/18/25 16:57 UA Ketone Negative Last Edit by Vane Oliver on 06/18/25 16:57 UA Bilirubin 0 mg/dL Last Edit by Vane Oliver on 06/18/25 16:57 UA Glucose 0 mg/dL Last Edit by Vane Oliver on 06/18/25 16:57 Assessment & Plan Assessment & Plan Orders: Orders AMB Urinalysis Automated Today Z13.9 - Encounter for screening, unspecified AMB Post Void Residual by ultrasound Today N39.3 - Stress incontinence (female) (male), N39.41 - Urge incontinence Urine Culture Today N39.3 - Stress incontinence (female) (male) Coding CPT Codes Post Residual Void - PVR CPT Code: [id number] Void Residual by ultrasound ([id number])
--- OUTSIDE RECORDS SUMMARY | 2025-06-19 01:00 | XMS_ITS | Clinical Summary ---
Author Organization [facility] Address [id number] [place] [id number] Care Team Providers Care Assistant Dean Of Students Name Role Phone Lucas Washington MD Primary Care Provider [phone] Surgical History Surgery Date Site/Laterality Comments HERNIA [...] (BMI) of 40.0 to 44.9 in adult (CMS/[facility] V24, CMS/[facility] V28) 02/28/2019 DX:Class 3 severe obesity du e to excess calories without serious comorbidity with body mass index (BMI) of 40.0 to 44.9 in adult ([facility]) Vitamin D deficiency 01/23/2019 DX:Vitamin [...] on file Sexual Orientation Not on file Plan of Treatment Health Maintenance Due Date Last Done Comments Breast Cancer Screening 1980 DTaP,Tdap,and Td Vaccines (1 - Tdap) 1999 Hepatitis B Vaccines (1 of 3 - 19+ 3-dose series) 1999 Cervical Cancer Screening: P ap Smear 2001 HPV Vaccines (1 - 3-dose SCD M series) 2007 Depression Screening 07/12/2024 COVID-19 Vaccine ( - 2024-2 6 season) 2025 Influenza Vaccine (#1) 2025 RSV Immunization Adult Patie nts (1 - 1-dose 75+ series) 2055 HIB Vaccines Aged Out No longer eligi [...] 5 Years) and At-Risk Patients (6 to 49 Years) Aged Out No longer eligible b ased on patient's age to complete this topic RSV Immunization Patients Un destin 20 months Aged Out No longer eligible b ased on patient's age to complete this topic Varicella Vaccines Aged Out No longer eligible based on patient's age to complete this topic Care Teams Assistant Dean Of Students Relationship Specialty Start Date End Date Lucas Washington MD [address] [place] [address] Dr [address] LILIAN Lewis PCP - General Internal Medicine 05/17/17
== END 2025-06-18 16:11 | disposition home or self-care (01) ==
LOC: HO.HUSH 15:27
PROVIDERS: PCP Internal Medicine; Visit Provider Urology
DX: Z13.9 Encounter for screening, unspecified (principal)

== ENCOUNTER 2025-06-18 15:26 | Outpatient (REF) | payer OTHER, SELFPAY | END 2025-06-18 15:27 | disposition home or self-care (01) | LOC: HO.LNP 15:26 | PROVIDERS: PCP Internal Medicine; Visit Provider Urology | DX: N39.3 Stress incontinence (female) (male) (principal); N39.41 Urge incontinence | CPT/HCPCS: 51798; 81003; 87086 ==